=== PATIENT | male | born 1980 | race Caucasian/White ===

== ENCOUNTER 2024-01-03 20:21 | Inpatient (IN) | payer OTHER, SELFPAY ==
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
--- OUTSIDE RECORDS SUMMARY | 2024-01-03 20:24 | XMS_ITS | Continuity of Care Document ---
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 Role Phone Kimberly Lockhart MD, Zander Primary Care Phys ician [place] [facility] [place]20 - 11/28/20 [facility] [address] [place] [id number]- Encounter Diagnosis Dehydration(Final) - 11/28/20 Heat exhaustion(Final) - 11/28/20 Homelessness(Final) - 11/28/20 Discharge Disposition: A-D/C Home Attending Physician: Cj Burnett MD Admitting Physician: Cj Burnett MD Referring Physician: Not on Staff, Referring MD Allergies, Adverse Reactions, Alerts Substance Reaction Severity Status penicillin Active Haldol Active SEROquel 1 Active Avocado Active 1patient states he is allergic and had a reaction in the past Immunizations Given and Recorded Vaccine Date Status Refusal Reason pneumococcal 23-valent vaccine 1 03/20/18 Given influenza virus vaccine, inactivated 03/20/18 Give n Not Given Vaccine Date Status Refusal Reason pneumococcal 23-valent vaccine 02/21/18 Not Given Patient Refuses influenza virus vaccine, inactivated 02/21/18 Not Given Patient Refuses 1Early/Late Reason: Med Not Available Medications chlorproMAZINE 50 mg oral tablet = 50 mg, By Mouth, 2 times a day, PRN Anxiety, TAKE 1 TABLET BY MOUTH UP TO TWICE A DAY, -NEEDED FOR SEVERE ANXIETY. DO NOT OPERATE HEAVY MACHINERY IF YOU FEEL SEDATED., # 60 tablet, 0 Refills, Maintenance, 10/31/20 10:35:00 EDT, TabletSYLVIA. Start Date: 10/31/20 Stop Date: 11/30/20 Status: Ordered escitalopram 10 mg oral tablet 1 tablet = 10 mg, By Mouth, Daily, # 30 tablet, 1 Refills, Maintenance, 10/18/20 11:18:00 EDT, Tablet, [facility] #[id number], Partial fill upon patient request if the prescription is for a schedule II opioid drug., 198, melody, 10/18/20 10:14:00 EDT... Start Date: 10/18/20 Status: Ordered lithium 300 mg oral tablet 2 tablet = 600 mg, By Mouth, Daily at bedtime, # 60 tablet, 1 Refills, Maintenance, 10/18/20 11:23:00 EDT, [facility] #[id number], Partial fill upon patient request if the prescription is for a schedule II opioid drug., 198, melody, 10/18/20 10:14:00... Start Date: 10/18/20 Status: Ordered lithium 600 mg oral capsule = 600 mg, By Mouth, Daily, 0 Refills, Maintenance, 10/31/20 10:58:00 EDT, Capsule, Partial fill upon patient request if the prescription is for a schedule II opioid drug. Start Date: 10/31/20 Status: Ordered mirtazapine 15 mg oral tablet 0.5 tablet = 7.5 mg, By Mouth, Daily at bedtime, # 15 tablet, 1 Refills, Maintenance, 10/18/20 11:19:00 EDT, Tablet, [facility] #[id number], Partial fill upon patient request if the prescriptionis for a schedule II opioid drug., 198, melody, ... Start Date: 10/18/20 Status: Ordered multivitamin with minerals Vitamin D with Minerals oral tablet 1 tablet, By Mouth, Daily, # 30 tablet, 1 Refills, Maintenance, 10/31/20 10:35:00 EDT, Capsule, [facility] #[id number], Partial fill upon patient request if the prescription is for a schedule IIopioid drug., 1 tablet By Mouth Daily, 193, cm, ... Start Date: 10/31/20 Status: Ordered olanzapine 5 mg oral tablet 5 mg, 1, tablet, By Mouth, 2 times a day, # 60 tablet, Refills 1, Tot. Refills 1, Maintenance, 10/31/20 10:35:00 EDT, Route to Pharmacy Electronically, [facility] #[id number], Partial fill upon patient request if the prescription is for a schedul... Start Date: 10/31/20 Status: Ordered pantoprazole 40 mg oral delayed release tablet = 40 mg, By Mouth, Daily, # 30 tablet, 1 Refills, Maintenance, 10/18/20 11:20:00 EDT, EC Tablet, 198, cm, 10/18/20 10:14:00 EDT, Height, 66.68, kg, 10/17/20 19:53:00 EDT, Dry Weight Start Date: 10/18/20 Status: Ordered sucralfate 1 gm oral tablet 1 Gm, 1, tablet, By Mouth, 2 times a day, # 60 tablet, Refills 1, Tot. Refills 1, Maintenance, 10/18/20 11:21:00 EDT, Route to Pharmacy Electronically, [facility] #[id number], Partial fill upon patient request if the prescription is for a schedul... Start Date: 10/18/20 Status: Ordered Problem List Condition Effective Dates Status Health Status Inform ant Diabetes(Confirmed) Active Hypertension(Confirmed) Active Major depressive disorder(Confirmed) Active PTSD (post-traumatic stress disorder)(Confirmed) Active Tobacco use disorder(Confirmed) Active Vital Signs Most recent to oldest [Reference Range]: 1 2 Oxygen Saturation [94-100 %] 100 % (11/28/20 8:35 AM) 100 % (11/28/20 4:21 AM) Pulse Rate [55-90 bpm] 65 bpm (11/28/20 8:35 AM) 65 bpm (11/28/20 4:21 AM) Blood Pressure [90-138/55-84 mm Hg] 118/ 77mm Hg (11/28/20 8:35 AM) 116/68mm Hg (11/28/20 4:21 AM) Respiratory Rate [16-30 br/min] 16 br/mi n (11/28/20 8:35 AM) 18 br/min (11/28/20 4:21 AM) Temperature [96.8-100.4 DegF] 97.6 DegF (11/28/20 8:35 AM) 97.5 DegF (11/28/20 4:21 AM) Mode of Delivery (Oxygen) Room air (11/28/20 8:35 AM) Room air (11/28/20 4:21 AM) Blood pressure sites Arm, left (11/28/20 8:35 AM) Arm, right (11/28/20 4:21 AM) Temperature Route Oral (11/28/20 8:35 AM) Oral (11/28/20 4:21 AM) Social History Social History Type Response Smoking Status Current every day brittany simms entered on: 12/03/17 Sex
--- OUTSIDE RECORDS SUMMARY | 2024-01-03 20:24 | XMS_ITS | Continuity of Care Document ---
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 [place] Date(s): 10/23/19 - 10/26/[address] [address]- [facility] Discharge Disposition: Transfer to [facility] Facility Attending Physician: Anthony Hill MD Admitting Physician: Anthony Hill MD Referring Physician: Not on Staff, Referring [...] Refuses 1Early/Late Reason: Med Not Available Medications Carafate 1 gm oral tablet 1 Gm, 1, tablet, By Mouth, 2 times a day, # 60 tablet, Refills 0, Tot. Refills 0, Maintenance, 06/16/19 15:19:00 EST, Route to Pharmacy Electronically, [facility] #[id number], 199, cm, 06/16/19 9:58:00 EST, Height, 70.6, kg, 10/05/18 16:57:00 EDT... Start Date: 06/16/19 Status: Ordered escitalopram 10 mg oral tablet TK 1 T PO QD Start Date: 08/13/19 Status: Ordered gabapentin 400 mg oral capsule 400 mg, 1, capsule, By Mouth, 3 times a day, # 120 capsule, Refills 0, Maintenance, 06/10/19 1:46:00 EST Start Date: 06/10/19 Status: Ordered hydrOXYzine pamoate 50 mg oral capsule = 50 mg, By Mouth, 2 times a day, PRN Anxiety, # 30 capsule, 0 Refills, Acute 06/16/20 9:00:00 EST,06/16/19 15:18:00 EST, Capsule, [facility] #[id number], 199, cm, 06/16/19 9:58:00 EST, Height,70.6, kg, 10/05/18 16:57:00 EDT, Dry Weight Start Date: 06/16/19 Stop Date: 06/16/20 Status: Ordered lithium 300 mg oral tablet 1 tablet = 300 mg, By Mouth, 2 times a day, # 60 tablet, 0 Refills, Maintenance, 06/16/19 15:18:00 EST, Tablet, [facility] #[id number], 199, cm, 06/16/19 9:58:00 EST, Height, 70.6, kg, 10/05/18 16:57:00 EDT, Dry Weight Start Date: 06/16/19 Status: Ordered nicotine 2 mg oral transmucosal gum = 2 mg, Chew, Every hour, PRN Other, Nicotine Withdrawal Symptoms (NOT to exceed 24 pieces per day), # 160 each, 0 Refills, Acute 06/16/20 9:00:00 EST, 06/16/19 15:20:00 EST, Gum, [facility] #[id number], 199, cm, 06/16/19 9:58:00 EST, Height, 70.... Start Date: 06/16/19 Stop Date: 06/16/20 Status: Ordered Problem List Condition Effective Dates Status Health Status Inform ant Hypertension(Confirmed) Active Major depressive disorder(Confirmed) Active PTSD (post-traumatic stress disorder)(Confirmed) Active Tobacco use disorder(Confirmed) Active Vital Signs Most recent to oldest [Reference Range]: 1 2 3 Oxygen Saturation [94-100 %] 98 % (10/26/19 2:31 PM) 99 % (10/26/19 6:56 AM) 99 % (10/25/19 8:58 PM) Pulse Rate [55-90 bpm] 85 bpm (10/26/19 2:31 PM) 50 bpm *L* (10/26/19 6:56 AM) 55 bpm (10/25/19 8:58 PM) Blood Pressure [90-138/55-84 mm Hg] 122/71mm Hg (10/26/19 2:31 PM) 98/53mm Hg (10/26/19 6:56 AM) 111/73mm Hg (10/25/19 8:58 PM) Respiratory Rate [16-30 br/min] 18 br/min (10/26/19 2:48 PM) 18 br/min (10/26/19 2:31 PM) 18 br/min (10/26/19 8:20 AM) Temperature [96.8-100.4 DegF] 97.9 DegF (10/26/19 2:31 PM) 98.1 DegF (10/26/19 6:56 AM) 97.5 DegF (10/25/19 8:58 PM) Mode of Delivery (Oxygen) Room air (10/26/19 2:31 PM) Room air (10/26/19 6:56 AM) Room air (10/25/19 8:58 PM) Blood pressure sites Arm, right (10/26/19 2:31 PM) Arm, right (10/26/19 6:56 AM) Arm, right (10/25/19 8:58 PM) Temperature Route Oral (10/26/19 2:31 PM) Axillary (10/26/19 6:56 AM) Oral (10/25/19 8:58 PM) Social History Social History Type Response Smoking Status Current every day brittany simms entered on: 12/03/17 Sex
--- OUTSIDE RECORDS SUMMARY | 2024-01-03 20:24 | XMS_ITS | Continuity of Care Document ---
Author Organization [facility] ter Address [address] [place] [phone]- Care Team Providers Care Enrollment Representative Name Role Phone Kimberly Lockhart MD, Zander Primary Care Phys ician [place] [facility] [place] 10/12/[address] [address]- Encounter Diagnosis Depression(Final) - 10/11/20 Discharge Disposition: Transfer to [facility] Facility Attending Physician: Jose Farah MD Admitting Physician: Jose Farah MD Referring Physician: Not on Staff, Referring [...] Refuses 1Early/Late Reason: Med Not Available Medications Lexapro 20 mg oral tablet 1 tablet = 20 mg, By Mouth, Daily, # 14 tablet, 2 Refills, Maintenance, 02/11/20 11:03:00 EDT, Tablet, [facility] #[id number], 195, cm, 02/11/20 8:06:00 EDT, Height, 74.84, kg, 02/04/20 16:58:00EDT, Dry Weight Start Date: 02/11/20 Stop Date: 03/24/20 Status: Ordered lithium 600 mg oral capsule = 600 mg, By Mouth, 2 times a day, # 28 capsule, 2 Refills, Maintenance, 02/11/20 11:01:00 EDT, Capsule, [facility] #[id number], 195, cm, 02/11/20 8:06:00 EDT, Height, 74.84, kg, 02/04/20 16:58:00 EDT, Dry Weight Start Date: 02/11/20 Stop Date: 03/24/20 Status: Ordered mirtazapine 15 mg oral tablet 0.5 tablet = 7.5 mg, By Mouth, Daily at bedtime, # 15 tablet, 1 Refills, Maintenance, 02/11/20 11:04:00 EDT, Tablet, [facility] #[id number], 195, cm, 02/11/20 8:06:00 EDT, Height, 74.84, kg, 02/04/20 16:58:00 EDT, Dry Weight Start Date: 02/11/20 Stop Date: 04/11/20 Status: Ordered pantoprazole 40 mg oral delayed release tablet = 40 mg, By Mouth, Daily, # 30 tablet, 0 Refills, Maintenance, 02/11/20 11:02:00 EDT, EC Tablet, 195, cm, 02/11/20 8:06:00 EDT, Height, 74.84, kg, 02/04/20 16:58:00 EDT, Dry Weight Start Date: 02/11/20 Stop Date: 03/12/20 Status: Ordered PEG-3350 with Electrolytes (Eqv-NuLYTELY) oral powder for reconstitution See Instructions, as directed, # 1 each, 0 Refills, Maintenance, 08/29/20 13:16:00 EDT, [facility] #[id number], Ok to sub for any gallon prep, as directed, 198, cm, 04/05/20 8:30:00 EST, Height,76, kg, 04/05/20 8:30:00 EST, Dry Weight Start Date: 08/29/20 Status: Ordered sucralfate 1 gm oral tablet 1 Gm, 1, tablet, By Mouth, 2 times a day, on an empty stomach, # 180 tablet, Refills 0, Tot. Refills 0, Maintenance, 06/26/20 16:12:00 EST, Route to Pharmacy Electronically, [facility] #[id number], Partial fill upon patient request if the prescri... Start Date: 06/26/20 Status: Ordered Suprep Bowel Prep Kit oral liquid See Instructions, drink 1 bottle around 6pm day before procedure, drink second bottle morning of procedure but complete at least 4 hours prior to procedure., # 1 each, 0 Refills, Maintenance, 08/21/20 9:17:00 EDT, [facility] #[id number], Partial... Start Date: 08/21/20 Status: Ordered ZyPREXA 10 mg oral tablet See Instructions, 0.5 tablet By Mouth Daily two times a day at 9AM and 9PM. Take 0.5 tablet three times a day as needed for agitation., # 30 tablet, Refills 1, Tot. Refills 1, Maintenance, 02/11/20 11:05:00 EDT, Instructions Replace Required Details,... Start Date: 02/11/20 Status: Ordered Problem List Condition Effective Dates Status Health Status Inform ant Diabetes(Confirmed) Active Hypertension(Confirmed) Active Major depressive disorder(Confirmed) Active PTSD (post-traumatic stress disorder)(Confirmed) Active Tobacco use disorder(Confirmed) Active Results Radiology Reports * Exam Date Time Procedure Performing Provider Status 10/11/20 4:37 PM XR Hip w/Pelvis 2-3 View Left Rony Mcfarlane (Verified) Notes: (XR Hip w/Pelvis 2-3 View Left) Reason For Exam: With Pain;Trauma RESULT: XR Hip w/Pelvis 2-3 View Left XR Hip w/Pelvis 2-3 View Left INDICATION/CLINICAL QUESTION: Postmenopausal pain. COMPARISON: None.. TECHNIQUE: AP pelvis. AP and frog lateral left hip. FINDINGS: There is no fracture or focal lesion of the bony pelvis. The sacroiliac joints show no gross abnormality. There is no fracture in the visualized parts of the femurs. Minimal osteoarthritic change both hips.. No concerning soft tissue abnormality. IMPRESSION: 1. No bony injury.. 2. Minimal osteoarthritis both hips. WSN: [id number] Ordering Physician: Sophie Berkowitz Dictated By: Rudy Concepcion MD Dictated Date/Time: 10/11/20 4:43 pm Reviewed By: Rudy Concepcion MD Signed By: Rudy Concepcion MD Signed Date/Time: 10/11/20 4:43 pm Transcribed By: KENYETTA Transcribed Date/Time: 10/11/20 4:42 pm * Exam Date Time Procedure Performing Provider Status 10/11/20 4:37 PM Chest 2 Views Frontal and Lat Alise Mcfarlane; Yury (Verified) Notes: (Chest 2 Views Frontal and Lat) Reason For Exam: Pain;Other: RESULT: Chest 2 Views Frontal and Lat Chest 2 Views Frontal and Lat Hx of Present Illness: pt being section 12 for increase SI and HI with plan from a fpc; Reason: Other:; Pain; Clinical Question(s): Other:; Fracture, pneumothorax, pulmonary contusion COMPARISON: 04/05/2020 FINDINGS: LINES AND TUBES: None. LUNGS AND PLEURA: There are emphysematous changes in both upper lobes greater in the right than the left. There is no pneumonia. There is no infiltrate or pneumothorax. No pneumothorax. HEART, MEDIASTINUM AND FREIDA: Heart is normal in size. Normal upper mediastinal and hilar contour. BONES AND SOFT TISSUES: Patient is scoliotic. IMPRESSION: Emphysematous changes. No acute process. WSN: [id number] Ordering Physician: Sophie Berkowitz Dictated By: Binu Weaver MD Dictated Date/Time: 10/11/20 4:40 pm Reviewed By: Binu Weaver MD Signed By: Binu Weaver MD Signed Date/Time: 10/11/20 4:40 pm Transcribed By: KENYETTA Transcribed Date/Time: 10/11/20 4:38 pm Vital Signs Most recent to oldest [Reference Range]: 1 2 3 Oxygen Saturation [94-100 %] 100 % (10/12/20 6:46 AM) 96 % (10/11/20 11:14 PM) 100 % (10/11/20 5:22 PM) Pulse Rate [55-90 bpm] 73 bpm (10/12/20 6:46 AM) 61 bpm (10/11/20 11:14 PM) 64 bpm (10/11/20 5:22 PM) Blood Pressure [90-138/55-84 mm Hg] 149/99mm Hg *H* (10/12/20 6:46 AM) 96/58mm Hg (10/11/20 11:14 PM) 114/62mm Hg (10/11/20 5:22 PM) Respiratory Rate [16-30 br/min] 18 br/min (10/11/20 11:14 PM) 16 br/min (10/11/20 5:22 PM) 18 br/min (10/11/20 2:03 PM) Temperature [96.8-100.4 DegF] 97.5 DegF (10/12/20 6:46 AM) 97.4 DegF (10/11/20 11:14 PM) 97.9 DegF (10/11/20 5:22 PM) Mode of Delivery (Oxygen) Room air (10/12/20 6:46 AM) Room air (10/11/20 11:14 PM) Room air (10/11/20 5:22 PM) Blood pressure sites Arm, right (10/12/20 6:46 AM) Arm, right (10/11/20 11:14 PM) Arm, left (10/11/20 5:22 PM) Temperature Route Oral (10/12/20 6:46 AM) Oral (10/11/20 11:14 PM) Oral (10/11/20 5:22 PM) Social History Social History Type Response Smoking Status Current every day brittany simms entered on: 12/03/17 Sex
--- OUTSIDE RECORDS SUMMARY | 2024-01-03 20:24 | XMS_ITS | Continuity of Care Document ---
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 Test Carrier Name Role Phone Kimberly Lockhart MD, Zander Primary Care Phys ician Encounter [facility] [place] Date(s): 08/29/20 - 10/09/[address] [address] Attending Physician: Danny Morales MD Admitting Physician: Danny Morales MD Referring Physician: Danny Morales MD Allergies, Adverse Reactions, Alerts Substance Reaction [...] 2 Refills, Maintenance, 02/11/20 11:03:00 EDT, Tablet, [facility] #[id number], 195, cm, 02/11/20 8:06:00 EDT, Height, 74.84, kg, 02/04/20 16:58:00EDT, Dry Weight Start Date: 02/11/20 Stop Date: 03/24/20 Status: Ordered lithium 600 mg oral capsule = 600 mg, By Mouth, 2 times a day, # 28 capsule, 2 Refills, Maintenance, 02/11/20 11:01:00 EDT, Capsule, [facility] #[id number], 195, cm, 02/11/20 8:06:00 EDT, Height, 74.84, kg, 02/04/20 16:58:00 EDT, Dry Weight Start Date: 02/11/20 Stop Date: 03/24/20 Status: Ordered mirtazapine 15 mg oral tablet 0.5 tablet = 7.5 mg, By Mouth, Daily at bedtime, # 15 tablet, 1 Refills, Maintenance, 02/11/20 11:04:00 EDT, Tablet, [facility] #[id number], 195, cm, 02/11/20 8:06:00 EDT, Height, 74.84, [...] each, 0 Refills, Maintenance, 08/29/20 13:16:00 EDT, [facility] #[id number], Ok to sub for any gallon prep, as directed, 198, cm, 04/05/20 8:30:00 EST, Height,76, kg, 04/05/20 8:30:00 EST, Dry Weight Start Date: 08/29/20 Status: Ordered sucralfate 1 gm oral tablet 1 Gm, 1, tablet, By Mouth, 2 times a day, on an empty stomach, # 180 tablet, Refills 0, Tot. Refills 0, Maintenance, 06/26/20 16:12:00 EST, Route to Pharmacy Electronically, [facility] #[id number], Partial fill upon patient request if the prescri... Start Date: 06/26/20 Status: Ordered Suprep Bowel Prep Kit oral liquid See Instructions, drink 1 bottle around 6pm day before procedure, drink second bottle morning of procedure but complete at least 4 hours prior to procedure., # 1 each, 0 Refills, Maintenance, 08/21/20 9:17:00 EDT, [facility] #[id number], Partial... Start Date: 08/21/20 Status: Ordered ZyPREXA [...] stress disorder)(Confirmed) Active Tobacco use disorder(Confirmed) Active Social History Social History Type Response Smoking Status Current every day brittany simms entered on: 12/03/17 Sex
--- OUTSIDE RECORDS SUMMARY | 2024-01-03 20:24 | XMS_ITS | Continuity of Care Document ---
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 Name Role Phone Kimberly Lockhart MD, Zander Primary Care Phys ician [place] [facility] [place] Date(s): 05/11/21 - 06/10/21 [facility] Attending Physician: Jacquelyn Ahmadi Admitting Physician: Jacquelyn Ahmadi Referring Physician: Jacquelyn Ahmadi Allergies, Adverse Reactions, Alerts Substance Reaction Severity Status penicillin Active Haldol Active Avocado Active SEROquel 1 Active 1patient states he is allergic and [...] Available Medications chlorproMAZINE 50 mg oral tablet 1 tablet = 50 mg, By Mouth, Daily at bedtime, 0 Refills, Maintenance, 02/06/21 14:37:00 EDT, Partial fill upon patient request if the prescription is for a schedule II opioid drug. Start Date: 02/06/21 Status: Ordered Depakote ER 500 mg oral tablet, extended release 2 tablet = 1,000 mg, By Mouth, Daily at bedtime, 0 Refills, Maintenance, 02/06/21 14:42:00 EDT, Partial fill upon patient request if the prescription is for a schedule II opioid drug. Start Date: 02/06/21 Status: Ordered Depakote ER 500 mg oral tablet, extended release 1 tablet = 500 mg, By Mouth, Daily, 0 Refills, Maintenance, 02/06/21 14:44:00 EDT, Partial fill upon patient request if the prescription is for a schedule II opioid drug. Start Date: 02/06/21 Status: Ordered lithium 300 mg oral capsule 1 capsule = 300 mg, By Mouth, Daily, 0 Refills, Maintenance, 02/06/21 14:38:00 EDT, Partial fill upon patient request if the prescription is for a schedule II opioid drug. Start Date: 02/06/21 Status: Ordered lithium 300 mg oral tablet 2 tablet = 600 mg, By Mouth, Daily at bedtime, # 60 tablet, 1 Refills, Maintenance, 10/18/20 11:23:00 EDT, [facility] #[id number], Partial fill upon patient request if the prescription is for a schedule II opioid drug., 198, cm, 10/18/20 10:14:00... Start Date: 10/18/20 Status: Ordered melatonin 3 mg oral tablet 3 tablet = 9 mg, By Mouth, Daily at bedtime, 0 Refills, Maintenance, 02/06/21 14:40:00 EDT, Partialfill upon patient request if the prescription is for a schedule II opioid drug. Start Date: 02/06/21 Status: Ordered mirtazapine 15 mg oral tablet 0.5 tablet = 7.5 mg, By Mouth, Daily at bedtime, # 15 tablet, 1 Refills, Maintenance, 10/18/20 11:19:00 EDT, Tablet, [facility] #[id number], Partial fill upon patient request if the prescriptionis for a schedule II opioid drug., 198, cm, ... Start Date: 10/18/20 Status: Ordered multivitamin with minerals Vitamin D with Minerals oral tablet 1 tablet, By Mouth, Daily, # 30 tablet, 1 Refills, Maintenance, 10/31/20 10:35:00 EDT, Capsule, [facility] #[id number], Partial fill upon patient request if the prescription is for a schedule IIopioid drug., 1 tablet By Mouth Daily, 193, cm, ... Start Date: 10/31/20 Status: Ordered nicotine 14 mg/24 hr transdermal film, extended release 1 patch, Topically, Daily, # 30 patch, 1 Refills, Maintenance, 02/09/21 10:23:00 EDT, Patch, [facility] #[id number], Partial fill upon patient request if the prescription is for a schedule II opioid drug., 1 patch Topically Daily, 196, cm, ... Start Date: 02/09/21 Status: Ordered nicotine 2 mg oral transmucosal gum = 2 mg, Chew, Every 15 minutes, PRN Other, Cigarette craving. Not to exceed 30 doses in 24 hours, #160 each, 1 Refills, Maintenance, 02/09/21 10:22:00 EDT, Gum, [facility] #[id number], Partial fill upon patient request if the prescription is fo... Start Date: 02/09/21 Status: Ordered olanzapine 2.5 mg oral tablet 2.5 mg, 1, tablet, By Mouth, Daily, PRN, Refills 0, Maintenance, Anxiety, 02/06/21 14:34:00 EDT, Partial fill upon patient request if the prescription is for a schedule II opioid drug. Start Date: 02/06/21 Status: Ordered ondansetron 4 mg oral tablet, disintegrating 1 tablet = 4 mg, By Mouth, Every 8 hours, PRN Nausea & Vomiting, # 10 tablet, 0 Refills, Maintenance, 04/23/21 13:22:00 EST, Tablet, [facility] #[id number], Partial fill upon patient requestif the prescription is for a schedule II opioid drug.,... Start Date: 04/23/21 Status: Ordered prazosin 5 mg oral capsule 5 mg, 1, capsule, By Mouth, Daily at bedtime, Refills 0, Maintenance, 02/06/21 14:43:00 EDT, Partial fill upon patient request if the prescription is for a schedule II opioid drug. Start Date: 02/06/21 Status: Ordered sertraline 50 mg oral tablet 1 tablet = 50 mg, By Mouth, Daily, 0 Refills, Maintenance, 02/06/21 14:45:00 EDT, Partial fill uponpatient request if the prescription is for a schedule II opioid drug. Start Date: 02/06/21 Status: Ordered Problem List Condition Effective Dates Status Health Status Inform ant Diabetes(Confirmed) Active Hypertension(Confirmed) Active Major depressive disorder(Confirmed) Active PTSD (post-traumatic stress disorder)(Confirmed) Active Tobacco use disorder(Confirmed) Active Social History Social History Type Response Smoking Status Current every day brittany simms entered on: 12/03/17 Sex
--- OUTSIDE RECORDS SUMMARY | 2024-01-03 20:24 | XMS_ITS | Continuity of Care Document ---
Author Organization [facility] Address [address] [place] [address]- Care Team Providers Care Scaffold Erector Name Role Phone Kimberly Lockhart MD, Zander Primary Care Phys ician Encounter [facility] Date(s): 08/29/20 - 09/28/20 [facility] [address] [place] [id number] Allergies, Adverse Reactions, Alerts Substance Reaction Severity [...] 2 Refills, Maintenance, 02/11/20 11:03:00 EDT, Tablet, [facility] #[id number], 195, cm, 02/11/20 8:06:00 EDT, Height, 74.84, kg, 02/04/20 16:58:00EDT, Dry Weight Start Date: 02/11/20 Stop Date: 03/24/20 Status: Ordered lithium 600 mg oral capsule = 600 mg, By Mouth, 2 times a day, # 28 capsule, 2 Refills, Maintenance, 02/11/20 11:01:00 EDT, Capsule, [facility] #[id number], 195, cm, 02/11/20 8:06:00 EDT, Height, 74.84, kg, 02/04/20 16:58:00 EDT, Dry Weight Start Date: 02/11/20 Stop Date: 03/24/20 Status: Ordered mirtazapine 15 mg oral tablet 0.5 tablet = 7.5 mg, By Mouth, Daily at bedtime, # 15 tablet, 1 Refills, Maintenance, 02/11/20 11:04:00 EDT, Tablet, [facility] #[id number], 195, cm, 02/11/20 8:06:00 EDT, Height, 74.84, [...] each, 0 Refills, Maintenance, 08/29/20 13:16:00 EDT, [facility] #[id number], Ok to sub for any gallon prep, as directed, 198, cm, 04/05/20 8:30:00 EST, Height,76, kg, 04/05/20 8:30:00 EST, Dry Weight Start Date: 08/29/20 Status: Ordered sucralfate 1 gm oral tablet 1 Gm, 1, tablet, By Mouth, 2 times a day, on an empty stomach, # 180 tablet, Refills 0, Tot. Refills 0, Maintenance, 06/26/20 16:12:00 EST, Route to Pharmacy Electronically, [facility] #[id number], Partial fill upon patient request if the prescri... Start Date: 06/26/20 Status: Ordered Suprep Bowel Prep Kit oral liquid See Instructions, drink 1 bottle around 6pm day before procedure, drink second bottle morning of procedure but complete at least 4 hours prior to procedure., # 1 each, 0 Refills, Maintenance, 08/21/20 9:17:00 EDT, [facility] #[id number], Partial... Start Date: 08/21/20 Status: Ordered ZyPREXA [...]
--- OUTSIDE RECORDS SUMMARY | 2024-01-03 20:24 | XMS_ITS | Continuity of Care Document ---
Author Organization [facility] ter Address [address] [place] [id number]- Care Team Providers Care Flume Maker Name Role Phone Kimberly Lockhart MD, Zander [facility] [place] Date(s): 09/18/19 - 09/18/[address] [address]- [facility] Encounter Diagnosis Weakness(Final) - 09/18/19 Discharge Disposition: A-D/C Home Attending Physician: Star Null DO Admitting Physician: Star Null DO Referring Physician: Not on Staff, Referring MD [...] 06/16/19 15:19:00 EST, Route to Pharmacy Electronically, [facility] #[id number], 199, cm, 06/16/19 9:58:00 EST, Height, 70.6, [...] Acute 06/16/20 9:00:00 EST,06/16/19 15:18:00 EST, Capsule, [facility] #[id number], 199, cm, 06/16/19 9:58:00 EST, Height,70.6, kg, 10/05/18 16:57:00 EDT, Dry Weight Start Date: 06/16/19 Stop Date: 06/16/20 Status: Ordered lithium 300 mg oral tablet 1 tablet = 300 mg, By Mouth, 2 times a day, # 60 tablet, 0 Refills, Maintenance, 06/16/19 15:18:00 EST, Tablet, [facility] #[id number], 199, cm, 06/16/19 9:58:00 EST, Height, 70.6, kg, 10/05/18 16:57:00 EDT, Dry Weight Start Date: 06/16/19 Status: Ordered nicotine 2 mg oral transmucosal gum = 2 mg, Chew, Every hour, PRN Other, Nicotine Withdrawal Symptoms (NOT to exceed 24 pieces per day), # 160 each, 0 Refills, Acute 06/16/20 9:00:00 EST, 06/16/19 15:20:00 EST, Gum, [facility] #[id number], 199, cm, 06/16/19 9:58:00 EST, Height, 70.... Start Date: 06/16/19 Stop Date: 06/16/20 Status: Ordered Problem List Condition Effective Dates Status Health Status Inform ant Hypertension(Confirmed) Active Major depressive disorder(Confirmed) Active PTSD (post-traumatic stress disorder)(Confirmed) Active Tobacco use disorder(Confirmed) Active Results Radiology Reports * Exam Date Time Procedure Performing Provider Status 09/18/19 9:38 AM Chest Portable Sam Edgar (Verified) Notes: (Chest Portable) Reason For Exam: Cough RESULT: Chest Portable PROCEDURE: Chest Portable CLINICAL INDICATION: 39 years old Male with Cough; Clinical Question(s): Pneumonia; Hx of Present Illness: Pt reports not feeling well over the past 3 days developed a dry cough, feeling weak and reports that he vomited a 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 Pt reports feeling nausea, pt reporting left side chest discomfort mid sternal chest pain. Denies fever. COMPARISON: March 16, 2018, August 12, 2019. FINDINGS: Portable AP erect view of the chest performed at 9:20 AM. Two views required for completeevaluation. Lines and tubes: Several EKG leads project over the chest. Lungs and pleura: Severe hyperinflation of the lungs again noted. 1.2 cm area devoid of lung markings in the upper RIGHT lung consistent with a large bladder with mild adjacent compressive atelectasis in the RIGHT perihilar region again noted. Mild unchanged biapical scarring. Lungs otherwise clearas visualized. No pleural effusions.No evidence of pneumothorax. Heart, mediastinum and diana: The cardiomediastinal silhouette and pulmonary vasculature are unremarkable. No cardiomegaly or pulmonary venous hypertension. Bones and soft tissues: Mild thoracic dextroscoliosis. IMPRESSION: 1. No evidence of acute cardiopulmonary disease. 2. Significant bullous emphysema again noted. Thank you for allowing me to participate in the care of this patient. WSN: [id number] Ordering Physician: Hannah Severino Dictated By: Chung Beal MD Dictated Date/Time: 09/18/19 9:48 am Reviewed By: Chung Beal MD Signed By: Chung Beal MD Signed Date/Time: 09/18/19 9:48 am Transcribed By: KENYETTA Transcribed Date/Time: 09/18/19 9:46 am Vital Signs Most recent to oldest [Reference Range]: 1 2 3 Oxygen Saturation [94-100 %] 100 % (09/18/19 11:30 AM) 99 % (09/18/19 9:54 AM) 100 % (09/18/19 8:10 AM) Pulse Rate [55-90 bpm] 52 bpm *L* (09/18/19 11:30 AM) 46 bpm *L* (09/18/19 9:54 AM) 42 bpm *L* (09/18/19 8:10 AM) Blood Pressure [90-138/55-84 mm Hg] 124/74mm Hg (09/18/19 11:30 AM) 100/62mm Hg (09/18/19 9:54 AM) 128/71mm Hg (09/18/19 8:10 AM) Respiratory Rate [16-30 br/min] 18 br/min (09/18/19 11:30 AM) 18 br/min (09/18/19 9:54 AM) 16 br/min (09/18/19 8:10 AM) Temperature [96.8-100.4 DegF] 98.5 DegF (09/18/19 11:30 AM) 97.5 DegF (09/18/19 8:10 AM) Mode of Delivery (Oxygen) Room air (09/18/19 11:30 AM) Room air (09/18/19 9:54 AM) Room air (09/18/19 8:10 AM) Blood pressure sites Arm, left (09/18/19 11:30 AM) Arm, left (09/18/19 9:54 AM) Arm, left (09/18/19 8:10 AM) Temperature Route Oral (09/18/19 11:30 AM) Oral (09/18/19 8:10 AM) Social History Social History Type Response Smoking Status Current every day brittany simms entered on: 12/03/17 Sex
--- OUTSIDE RECORDS SUMMARY | 2024-01-03 20:24 | XMS_ITS | Continuity of Care Document ---
Author Organization [facility] ter Address [address] [place] [address]- Care Team Providers Care Furnace Caretaker Name Role Phone Kimberly Lockhart MD, Zander [facility] [place] 11/07/19 - 11/09/[address] [address]- [facility] Discharge Disposition: A-D/C Home Attending Physician: Anthony Hill MD Admitting Physician: [...] 06/16/19 15:19:00 EST, Route to Pharmacy Electronically, [facility] #[id number], 199, cm, 06/16/19 9:58:00 EST, Height, 70.6, kg, 10/05/18 16:57:00 EDT... Start Date: 06/16/19 Status: Ordered escitalopram 20 mg oral tablet 1 tablet = 20 mg, By Mouth, Daily, # 30 tablet, 0 Refills, Maintenance, 11/09/19 10:49:00 EDT, Tablet, [facility]/pharmacy #[id number], 196, cm, 11/09/19 6:56:00 EDT, Height, 67.2, kg, 11/09/19 6:56:00 EDT, Dry Weight Start Date: 11/09/19 Status: Ordered gabapentin 400 mg oral capsule 400 mg, 1, capsule, By Mouth, 3 times a day, # 120 capsule, Refills 0, Maintenance, 06/10/19 1:46:00 EST Start Date: 06/10/19 Status: Ordered hydrOXYzine pamoate 50 mg oral capsule = 50 mg, By Mouth, 2 times a day, PRN Anxiety, # 30 capsule, 0 Refills, Acute 06/16/20 9:00:00 EST,06/16/19 15:18:00 EST, Capsule, [facility] #[id number], 199, cm, 06/16/19 9:58:00 EST, Height,70.6, kg, 10/05/18 16:57:00 EDT, Dry Weight Start Date: 06/16/19 Stop Date: 06/16/20 Status: Ordered lithium 300 mg oral tablet, extended release 2 tablet = 600 mg, By Mouth, 2 times a day, # 120 tablet, 0 Refills, Maintenance, 11/09/19 10:50:00EDT, ER Tablet, [facility]/pharmacy #[id number], 196, cm, 11/09/19 6:56:00 EDT, Height, 67.2, kg, 11/09/19 6:56:00 EDT, Dry Weight Start Date: 11/09/19 Status: Ordered nicotine 2 mg oral transmucosal gum = 2 mg, Chew, Every hour, PRN Other, Nicotine Withdrawal Symptoms (NOT to exceed 24 pieces per day), # 160 each, 0 Refills, Acute 06/16/20 9:00:00 EST, 06/16/19 15:20:00 EST, Gum, [facility] #[id number], 199, cm, 06/16/19 9:58:00 EST, Height, 70.... Start Date: 06/16/19 Stop Date: 06/16/20 Status: Ordered Problem List Condition Effective Dates Status Health Status Inform ant Hypertension(Confirmed) Active Major depressive disorder(Confirmed) Active PTSD (post-traumatic stress disorder)(Confirmed) Active Tobacco use disorder(Confirmed) Active Vital Signs Most recent to oldest [Reference Range]: 1 2 3 Height 196 cm (11/09/19 6:56 AM) 196 cm (11/08/19 9:18 PM) 196 cm (11/08/19 9:10 AM) Weight 67.2 kg (11/09/19 6:56 AM) 67.2 kg (11/08/19 9:18 PM) 67.2 kg (11/08/19 9:10 AM) Oxygen Saturation [94-100 %] 98 % (11/09/19 12:18 PM) 100 % (11/09/19 6:56 AM) 98 % (11/08/19 9:18 PM) Pulse Rate [55-90 bpm] 78 bpm (11/09/19 12:18 PM) 95 bpm *H* (11/09/19 6:56 AM) 68 bpm (11/08/19 9:18 PM) Body Mass Index [18.5-24.99] 17.49 *L* (11/09/19 6:56 AM) 17.49 *L* (11/08/19 9:18 PM) 17.49 *L* (11/08/19 9:10 AM) Blood Pressure [90-138/55-84 mm Hg] 97/61mm Hg (11/09/19 12:18 PM) 97/60mm Hg (11/09/19 6:56 AM) 101/65mm Hg (11/08/19 9:18 PM) Respiratory Rate [16-30 br/min] 18 br/min (11/09/19 12:18 PM) 20 br/min (11/09/19 10:01 AM) 18 br/min (11/09/19 9:01 AM) Temperature [96.8-100.4 DegF] 98 DegF (11/09/19 12:18 PM) 97.4 DegF (11/08/19 9:18 PM) 98.2 DegF (11/08/19 9:10 AM) Mode of Delivery (Oxygen) Room air (11/09/19 12:18 PM) Room air (11/09/19 6:56 AM) Room air (11/08/19 9:18 PM) Blood pressure sites Arm, left (11/09/19 12:18 PM) Arm, right (11/09/19 6:56 AM) Arm, right (11/08/19 9:18 PM) Temperature Route Oral (11/09/19 12:18 PM) Oral (11/08/19 9:18 PM) Oral (11/08/19 9:10 AM) Dry Weight 67.2 kg (11/09/19 6:56 AM) 67.2 kg (11/08/19 9:18 PM) 67.2 kg (11/08/19 9:10 AM) Weight Obtained Via Standing scale (11/07/19 5:23 PM) Dry Weight Obtained Via Standing scale (11/07/19 5:23 PM) Social History Social History Type Response Smoking Status Current every day brittany simms entered on: 12/03/17 Sex
--- OUTSIDE RECORDS SUMMARY | 2024-01-03 20:24 | XMS_ITS | Continuity of Care Document ---
Author Organization [facility] Address [address] [place] [address]- Care Team Providers Care Heel Caser Name Role Phone Kimberly Lockhart MD, Zander [facility] Date(s): 11/16/20 - 12/22/20 [facility] [address] [place], [place] [address] Attending Physician: Sol Mccartney MD Admitting Physician: Sol Mccartney MD Referring Physician: Dillan Childs MD Allergies, Adverse Reactions, Alerts Substance Reaction [...] tablet, 0 Refills, Maintenance, 10/31/20 10:35:00 EDT, [facility]. Start Date: 10/31/20 Stop Date: 11/30/20 Status: Ordered escitalopram 10 mg oral tablet 1 tablet = 10 mg, By Mouth, Daily, # 30 tablet, 1 Refills, Maintenance, 10/18/20 11:18:00 EDT, [facility][id number], Partial fill upon patient request if the prescription is for a schedule II opioid drug., 198, cm, 10/18/20 10:14:00 EDT... Start Date: 10/18/20 Status: Ordered lithium 300 mg oral tablet 2 tablet = 600 mg, By Mouth, Daily at bedtime, # 60 tablet, 1 Refills, Maintenance, 10/18/20 11:23:00 EDT, [facility] #[id number], Partial fill upon patient request if the [...] 1 Refills, Maintenance, 10/18/20 11:19:00 EDT, Tablet, [facility] #[id number], Partial fill upon patient request if the prescriptionis for a schedule II opioid drug., 198, melody, ... Start Date: 10/18/20 Status: Ordered multivitamin with minerals Vitamin D with Minerals oral tablet 1 tablet, By Mouth, Daily, # 30 tablet, 1 Refills, Maintenance, 10/31/20 10:35:00 EDT, Capsule, [facility] #[id number], Partial fill upon patient request if the prescription is for a schedule IIopioid drug., 1 tablet By Mouth Daily, 193, cm, ... Start Date: 10/31/20 Status: Ordered olanzapine 5 mg oral tablet 5 mg, 1, tablet, By Mouth, 2 times a day, # 60 tablet, Refills 1, Tot. Refills 1, Maintenance, 10/31/20 10:35:00 EDT, Route to Pharmacy Electronically, [facility] #[id number], Partial fill upon patient request if the [...] 10/18/20 11:21:00 EDT, Route to Pharmacy Electronically, [facility] #[id number], Partial fill upon patient request if the [...]
--- OUTSIDE RECORDS SUMMARY | 2024-01-03 20:24 | XMS_ITS | Continuity of Care Document ---
Author Organization [facility] Address [address] [place] [address]- Care Team Providers Care American History Teacher Name Role Phone Kimberly Lockhart MD, Zander Primary Care Phys ician En[place] [facility] [place] Date(s): 10/12/19 - 02/09/20 [facility] [address] [place] [address]- [facility] Attending Physician: Sam Culp MD Admitting Physician: Sam Culp MD Referring Physician: Zander Xavier MD Allergies, Adverse Reactions, Alerts Substance Reaction [...] Refuses 1Early/Late Reason: Med Not Available Medications acetaminophen 325 mg oral tablet 650 mg, 2, tablet, By Mouth, 3 times a day, PRN, Take NEEDED for mild- moderate pain not to exceed 4000 mg/day, # 60 tablet, Refills 1, Tot. Refills 1, Acute 03/08/20 10:14:00 EDT, Pain , Mild, 01/06/20 10:13:00 EDT, Route to Pharmacy [facility]... Start Date: 01/06/20 Stop Date: 03/08/20 Status: Ordered diclofenac 1% topical gel = 2 Gm, Topically, 3 times a day, # 180 Gm, 1 Refills, Maintenance, 01/06/20 10:10:00 EDT, Gel, [facility] #[id number], 198.12, cm, 01/06/20 8:06:00 EDT, Height, 58, kg, 12/30/19 3:29:00 EDT, Dry Weight Start Date: 01/06/20 Status: Ordered escitalopram 20 mg oral tablet 1 tablet = 20 mg, By Mouth, Daily, # 30 tablet, 1 Refills, Maintenance, 01/06/20 9:22:00 EDT, Tablet, [facility] #[id number], 198.12, cm, 01/06/20 8:06:00 EDT, Height, 58, kg, 12/30/19 3:29:00 EDT, Dry Weight Start Date: 01/06/20 Status: Ordered gabapentin 300 mg oral capsule 300 mg, 1, capsule, By Mouth, 3 times a day, # 90 capsule, Refills 1, Tot. Refills 1, Maintenance, 01/06/20 9:23:00 EDT, Route to Pharmacy Electronically, [facility] #[id number], 198.12, cm, 01/06/20 8:06:00 EDT, Height, 58, kg, 12/30/19 3:29:00... Start Date: 01/06/20 Status: Ordered hydrOXYzine pamoate 50 mg oral capsule 1 capsule = 50 mg, By Mouth, 2 times a day, PRN Anxiety, Take NEEDED up to twice daily for anxiety/sleep, # 50 capsule, 1 Refills, Maintenance, 01/06/20 9:27:00 EDT, Capsule, [facility] #[id number], 198.12, cm, 01/06/20 8:06:00 EDT, Height, 58... Start Date: 01/06/20 Status: Ordered lithium 600 mg oral capsule 1 capsule = 600 mg, By Mouth, 2 times a day, # 60 capsule, 1 Refills, Maintenance, 01/06/20 9:23:00EDT, Capsule, [facility] #[id number], 198.12, cm, 01/06/20 8:06:00 EDT, Height, 58, kg, 12/30/19 3:29:00 EDT, Dry Weight Start Date: 01/06/20 Status: Ordered Lyrica 50 mg oral capsule 1 capsule = 50 mg, By Mouth, 3 times a day, # 90 capsule, 1 Refills, Maintenance, 01/06/20 9:27:00 EDT, Capsule, [facility] #[id number], 198.12, cm, 01/06/20 8:06:00 EDT, Height, 58, kg, 12/30/19 3:29:00 EDT, Dry Weight Start Date: 01/06/20 Status: Ordered mirtazapine 7.5 mg oral tablet 1 tablet = 7.5 mg, By Mouth, Daily at bedtime, # 30 tablet, 1 Refills, Maintenance, 01/06/20 9:25:00 EDT, [facility] #[id number], 198.12, cm, 01/06/20 8:06:00 EDT, Height, 58, kg, 12/30/19 3:29:00 EDT, Dry Weight Start Date: 01/06/20 Status: Ordered Nicoderm C-Q Clear 21 mg/24 hr transdermal film, extended release 1 patch, Topically, Daily, # 30 patch, 1 Refills, Acute 03/08/20 9:24:00 EDT, 01/06/20 9:24:00 EDT,Patch, [facility] #[id number], 198.12, cm, 01/06/20 8:06:00 EDT, Height, 58, kg, 12/30/19 3:29:00 EDT, Dry Weight Start Date: 01/06/20 Stop Date: 03/08/20 Status: Ordered Nicotine 2 mg gum = 2 mg, Chew, Every hour, PRN Other, cigarette craving, # 60 each, 1 Refills, Acute 03/08/20 9:25:00 EDT, 01/06/20 9:25:00 EDT, Gum, [facility] #[id number], 198.12, cm, 01/06/20 8:06:00 EDT, Height, 58, kg, 12/30/19 3:29:00 EDT, Dry Weight Start Date: 01/06/20 Stop Date: 03/08/20 Status: Ordered olanzapine 5 mg oral tablet 5 mg, 1, tablet, By Mouth, Daily, # 30 tablet, Refills 1, Tot. Refills 1, Maintenance, 01/06/20 9:26:00 EDT, Route to Pharmacy Electronically, [facility] #[id number], 198.12, cm, 01/06/20 8:06:00 EDT, Height, 58, kg, 12/30/19 3:29:00 EDT, Dry Weight Start Date: 01/06/20 Status: Ordered pantoprazole 40 mg oral delayed release tablet 1 tablet = 40 mg, By Mouth, Daily, # 30 tablet, 1 Refills, Maintenance, 01/06/20 9:26:00 EDT, [facility], 198.12, cm, 01/06/20 8:06:00 EDT, Height, 58, kg, 12/30/19 3:29:00 EDT, Dry Weight Start Date: 01/06/20 Status: Ordered ZyPREXA 2.5 mg oral tablet 2.5 mg, 1, tablet, By Mouth, 2 times a day, PRN, Take NEEDED up to two times per day, for severeagitation/anxiety, # 10 tablet, Refills 1, Tot. Refills 1, Acute 03/08/20 9:29:00 EDT, Agitation, 01/06/20 9:28:00 EDT, Route to Pharmacy [facility] Start Date: 01/06/20 Stop Date: 03/08/20 Status: Ordered Problem List Condition Effective Dates Status Health Status Inform ant Hypertension(Confirmed) Active Major depressive disorder(Confirmed) Active PTSD (post-traumatic stress disorder)(Confirmed) Active Tobacco use disorder(Confirmed) Active Social History Social History Type Response Smoking Status Current every day brittany simms entered on: 12/03/17 Sex
--- OUTSIDE RECORDS SUMMARY | 2024-01-03 20:24 | XMS_ITS | Continuity of Care Document ---
Author Organization [facility] Address Unknown Care Team Providers Care Case Liner Name Role Phone Kimberly Lockhart MD, Zander Primary Care Phys ician Encounter [facility] [id number] Date(s): 05/11/21 - 05/18/21 [facility] Attending Physician: Dillan Childs MD Referring Physician: Zander Xavier MD Allergies, [...] tablet, 1 Refills, Maintenance, 10/18/20 11:23:00 EDT, [facility] #[id number], Partial fill upon patient request if the [...] 1 Refills, Maintenance, 10/18/20 11:19:00 EDT, Tablet, [facility] #[id number], Partial fill upon patient request if the prescriptionis for a schedule II opioid drug., 198, cm, ... Start Date: 10/18/20 Status: Ordered multivitamin with minerals Vitamin D with Minerals oral tablet 1 tablet, By Mouth, Daily, # 30 tablet, 1 Refills, Maintenance, 10/31/20 10:35:00 EDT, Capsule, [facility] #[id number], Partial fill upon patient request if the prescription is for a schedule IIopioid drug., 1 tablet By Mouth Daily, 193, cm, ... Start Date: 10/31/20 Status: Ordered nicotine 14 mg/24 hr transdermal film, extended release 1 patch, Topically, Daily, # 30 patch, 1 Refills, Maintenance, 02/09/21 10:23:00 EDT, Patch, [facility] #[id number], Partial fill upon patient request if the prescription is for a schedule II opioid drug., 1 patch Topically Daily, 196, cm, ... Start Date: 02/09/21 Status: Ordered nicotine 2 mg oral transmucosal gum = 2 mg, Chew, Every 15 minutes, PRN Other, Cigarette craving. Not to exceed 30 doses in 24 hours, #160 each, 1 Refills, Maintenance, 02/09/21 10:22:00 EDT, Gum, [facility] #[id number], Partial fill upon patient request if the [...] 0 Refills, Maintenance, 04/23/21 13:22:00 EST, Tablet, [facility] #[id number], Partial fill upon patient requestif the prescription [...] Most recent to oldest [Reference Range]: 1 Height 196 cm (05/11/21 12:58 PM) Weight 82.7 kg (05/11/21 12:58 PM) Pulse Rate [55-90 bpm] 97 bpm *H* (05/11/21 12:58 PM) Body Mass Index [18.5-24.99] 21.53 (05/11/21 12:58 PM) Blood Pressure [90-138/55-84 mm Hg] 125/ 81mm Hg (05/11/21 12:58 PM) Respiratory Rate [16-30 br/min] 16 br/mi n (05/11/21 12:58 PM) Temperature [96.8-100.4 DegF] 97.4 DegF (05/11/21 12:58 PM) Blood pressure sites Arm, right (05/11/21 12:58 PM) Temperature Route Temporal (05/11/21 12:58 PM) Weight Obtained Via Standing scale (05/11/21 12:58 PM) Social History Social History Type Response Smoking Status Current every day brittany simms entered on: 12/03/17 Sex
--- OUTSIDE RECORDS SUMMARY | 2024-01-03 20:24 | XMS_ITS | Continuity of Care Document ---
Author Organization [facility] ter Address [address] [place] [id number]- Care Team Providers Care Manager Performance Name Role Phone Kimberly Lockhart MD, Zander Primary Care Phys ician Encounter [facility] Date(s): 02/02/20 - 02/03/[address] [address]- [facility] Encounter Diagnosis Cocaine use(Final) - 02/02/20 Discharge Disposition: Transfer to [facility] Facility Attending Physician: Chinmay Balbuena MD Admitting Physician: Chinmay Balbuena MD Referring Physician: Not on Staff, Referring [...] 1 Refills, Maintenance, 01/06/20 10:10:00 EDT, Gel, [facility] #[id number], 198.12, cm, 01/06/20 8:06:00 EDT, Height, 58, kg, 12/30/19 3:29:00 EDT, Dry Weight Start Date: 01/06/20 Status: Ordered escitalopram 20 mg oral tablet 1 tablet = 20 mg, By Mouth, Daily, # 30 tablet, 1 Refills, Maintenance, 01/06/20 9:22:00 EDT, Tablet, [facility] #[id number], 198.12, cm, 01/06/20 8:06:00 EDT, Height, 58, kg, 12/30/19 3:29:00 EDT, Dry Weight Start Date: 01/06/20 Status: Ordered gabapentin 300 mg oral capsule 300 mg, 1, capsule, By Mouth, 3 times a day, # 90 capsule, Refills 1, Tot. Refills 1, Maintenance, 01/06/20 9:23:00 EDT, Route to Pharmacy Electronically, [facility] #[id number], 198.12, cm, 01/06/20 8:06:00 EDT, Height, 58, kg, 12/30/19 3:29:00... Start Date: 01/06/20 Status: Ordered hydrOXYzine pamoate 50 mg oral capsule 1 capsule = 50 mg, By Mouth, 2 times a day, PRN Anxiety, Take NEEDED up to twice daily for anxiety/sleep, # 50 capsule, 1 Refills, Maintenance, 01/06/20 9:27:00 EDT, Capsule, [facility] #[id number], 198.12, cm, 01/06/20 8:06:00 EDT, Height, 58... Start Date: 01/06/20 Status: Ordered lithium 600 mg oral capsule 1 capsule = 600 mg, By Mouth, 2 times a day, # 60 capsule, 1 Refills, Maintenance, 01/06/20 9:23:00EDT, Capsule, [facility] #[id number], 198.12, cm, 01/06/20 8:06:00 EDT, Height, 58, kg, 12/30/19 3:29:00 EDT, Dry Weight Start Date: 01/06/20 Status: Ordered Lyrica 50 mg oral capsule 1 capsule = 50 mg, By Mouth, 3 times a day, # 90 capsule, 1 Refills, Maintenance, 01/06/20 9:27:00 EDT, Capsule, [facility] #[id number], 198.12, cm, 01/06/20 8:06:00 EDT, Height, 58, kg, 12/30/19 3:29:00 EDT, Dry Weight Start Date: 01/06/20 Status: Ordered mirtazapine 7.5 mg oral tablet 1 tablet = 7.5 mg, By Mouth, Daily at bedtime, # 30 tablet, 1 Refills, Maintenance, 01/06/20 9:25:00 EDT, [facility] #[id number], 198.12, cm, 01/06/20 8:06:00 EDT, Height, 58, kg, 12/30/19 3:29:00 EDT, Dry Weight Start Date: 01/06/20 Status: Ordered Nicoderm C-Q Clear 21 mg/24 hr transdermal film, extended release 1 patch, Topically, Daily, # 30 patch, 1 Refills, Acute 03/08/20 9:24:00 EDT, 01/06/20 9:24:00 EDT,Patch, [facility] #[id number], 198.12, cm, 01/06/20 8:06:00 EDT, Height, 58, kg, 12/30/19 3:29:00 EDT, Dry Weight Start Date: 01/06/20 Stop Date: 03/08/20 Status: Ordered Nicotine 2 mg gum = 2 mg, Chew, Every hour, PRN Other, cigarette craving, # 60 each, 1 Refills, Acute 03/08/20 9:25:00 EDT, 01/06/20 9:25:00 EDT, Gum, [facility] #[id number], 198.12, cm, 01/06/20 8:06:00 EDT, Height, 58, kg, 12/30/19 3:29:00 EDT, Dry Weight Start Date: 01/06/20 Stop Date: 03/08/20 Status: Ordered olanzapine 5 mg oral tablet 5 mg, 1, tablet, By Mouth, Daily, # 30 tablet, Refills 1, Tot. Refills 1, Maintenance, 01/06/20 9:26:00 EDT, Route to Pharmacy Electronically, [id number], 198.12, cm, 01/06/20 8:06:00 EDT, Height, 58, [...] Range]: 1 2 3 Height 196 cm (02/03/20 3:35 AM) 196 cm (02/02/20 10:00 PM) 196 cm (02/02/20 8:29 PM) Weight 72 kg (02/03/20 3:35 AM) 72 kg (02/02/20 10:00 PM) 72 kg (02/02/20 8:29 PM) Oxygen Saturation [94-100 %] 99 % (02/03/20 12:52 PM) 100 % (02/03/20 3:35 AM) 100 % (02/02/20 10:00 PM) Pulse Rate [55-90 bpm] 61 bpm (02/03/20 12:52 PM) 55 bpm (02/03/20 3:35 AM) 42 bpm *L* (02/02/20 10:00 PM) Body Mass Index [18.5-24.99] 18.74 (02/03/20 3:35 AM) 18.74 (02/02/20 10:00 PM) 18.74 (02/02/20 8:29 PM) Blood Pressure [90-138/55-84 mm Hg] 111/71mm Hg (02/03/20 12:52 PM) 109/69mm Hg (02/03/20 3:35 AM) 114/65mm Hg (02/02/20 10:00 PM) Respiratory Rate [16-30 br/min] 18 br/min (02/03/20 12:52 PM) 18 br/min (02/03/20 10:02 AM) 18 br/min (02/03/20 3:35 AM) Temperature [96.8-100.4 DegF] 98.1 DegF (02/03/20 12:52 PM) 97.9 DegF (02/03/20 3:35 AM) 97.9 DegF (02/02/20 10:00 PM) Mode of Delivery (Oxygen) Room air (02/03/20 12:52 PM) Room air (02/03/20 3:35 AM) Room air (02/02/20 10:00 PM) Blood pressure sites Arm, left (02/03/20 12:52 PM) Arm, left (02/03/20 3:35 AM) Arm, left (02/02/20 10:00 PM) Temperature Route Oral (02/03/20 12:52 PM) Oral (02/03/20 3:35 AM) Oral (02/02/20 10:00 PM) Dry Weight 72 kg (02/03/20 3:35 AM) 72 kg (02/02/20 10:00 PM) 72 kg (02/02/20 8:29 PM) Weight Obtained Via Patient/family state d (02/02/20 8:52 AM) Dry Weight Obtained Via Patient/family s tated (02/02/20 8:52 AM) Social History Social History Type Response Smoking Status Current every day brittany simms entered on: 12/03/17 Sex
--- OUTSIDE RECORDS SUMMARY | 2024-01-03 20:25 | XMS_ITS | Continuity of Care Document ---
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 Name Role Phone Kimberly Lockhart MD, Zander Primary Care Phys ician Encounter [facility] [place] Date(s): 09/07/23 - 09/07/[address] [address]- Encounter Diagnosis Cocaine use(Final) - 09/07/23 Homeless(Final) - 09/07/23 Discharge Disposition: A-D/C Home Attending Physician: Emerald Wolf MD Admitting Physician: Emerald Wolf MD Referring Physician: Not on Staff, Referring MD Allergies, Adverse Reactions, Alerts Substance Reaction Severity Status penicillin childhood allergy-unknown Ac tive Avocado full body rash Active Haldol skin crawling Active SEROquel 1 disoriented and sleepy Activ e 1patient states he is allergic and had a reaction in the past Immunizations Given and Recorded Vaccine Date Status Refusal Reason tetanus/diphtheria/pertussis, acel(Tdap) 08/31/23 Given pneumococcal 23-valent vaccine 1 03/20/18 Given influenza [...] TIMES DAILY Start Date: 07/07/23 Status: Ordered lithium 600 mg oral capsule TAKE ONE CAPSULE BY MOUTH AT BEDTIME Start Date: 07/07/23 Status: Ordered mirtazapine 15 mg oral tablet TAKE 1/2 TABLET BY MOUTH AT BEDTIME Start Date: 07/07/23 Status: Ordered ondansetron 4 mg oral tablet, disintegrating 1 tablet = 4 mg, By Mouth, Every 8 hours, PRN as needed for nausea/vomiting, # 8 tablet, 0 Refills,Maintenance, 08/05/23 14:50:00 EST, DIS Tablet, [facility] #[id number], Partial fill upon patient request if the prescription is for a schedule II... Start Date: 08/05/23 Stop Date: 08/08/23 Status: Ordered topiramate 25 mg oral tablet TAKE 1 TABLET BY MOUTH TWICE DAILY Start Date: 07/07/23 Status: Ordered Problem List Condition Confirmation Course Effective Dates Status Health St atus Informant Diabetes Confirmed Active Hypertension Confirmed Active Major depressive disorder Confirmed Active PTSD (post-traumatic stress disorder) Confirmed Active Tobacco use disorder Confirmed Active Underweight Confirmed Active Results Radiology Reports * Exam Date Time Procedure Performing Provider Status 09/07/23 3:35 AM Chest 2 Views Frontal and Lat Jose Agrawal; Yury (Verified) Notes: (Chest 2 Views Frontal and Lat) Reason For Exam: Chest Pain;Other: RESULT: Chest 2 Views Frontal and Lat Chest 2 Views Frontal and Lat HX OF PRESENT ILLNESS: pt presenting with 1 hour of vomiting starting [employer]. states he has been usingcrack cocaine regularly and wants to go to detox. denies SI HI. states he recently was released from a dual diagnosis program and has been on the streets since. c o CP; Reason: Other:; Chest Pain; Clinical Question(s): Other: / Other: COMPARISON: 08/05/2023 FINDINGS: LINES AND TUBES: None. LUNGS AND PLEURA: Hyperinflated lungs with coarse lung markings and hyperlucent lung apices particularly on the right. No consolidation. No pleural effusion. No pneumothorax. HEART, MEDIASTINUM AND FREIDA: Heart is normal in size. Normal mediastinal and hilar contour. BONES AND SOFT TISSUES: No acute abnormality. IMPRESSION: No evidence of acute abnormality. COPD. WSN: [id number] Ordering Physician: Genesis Cano Dictated By: Ilia Aguirre MD Dictated Date/Time: 09/07/23 6:44 am Reviewed By: Ilia Aguirre MD Signed By: Ilia Aguirre MD Signed Date/Time: 09/07/23 6:44 am Transcribed By: KENYETTA Transcribed Date/Time: 09/07/23 6:43 am Vital Signs Most recent to oldest [Reference Range]: 1 2 3 Height 187 cm (09/07/23 2:56 AM) 187 cm (09/07/23 2:51 AM) Weight 63.5 kg (09/07/23 2:56 AM) 63.5 kg (09/07/23 2:51 AM) Oxygen Saturation [94-100 %] 100 % (09/07/23 8:11 AM) 100 % (09/07/23 5:44 AM) 100 % (09/07/23 4:37 AM) Pulse Rate [55-90 bpm] 84 bpm (09/07/23 8:11 AM) 94 bpm *H* (09/07/23 5:44 AM) 106 bpm *H* (09/07/23 4:37 AM) Body Mass Index [18.5-24.99 kg/m2] 18.16 kg/m2 *L* (09/07/23 2:51 AM) Blood Pressure [90-138/55-84 mm Hg] 120/53mm Hg (09/07/23 8:11 AM) 123/52mm Hg (09/07/23 5:44 AM) 120/68mm Hg (09/07/23 4:37 AM) Respiratory Rate [16-30 br/min] 16 br/min (09/07/23 8:11 AM) 16 br/min (09/07/23 5:44 AM) 17 br/min (09/07/23 2:51 AM) Temperature [96.8-100.4 DegF] 98.1 DegF (09/07/23 4:37 AM) 98.1 DegF (09/07/23 2:51 AM) Mode of Delivery (Oxygen) Room air (09/07/23 8:11 AM) Room air (09/07/23 5:44 AM) Room air (09/07/23 4:37 AM) Blood pressure sites Arm, right (09/07/23 8:11 AM) Arm, right (09/07/23 5:44 AM) Arm, right (09/07/23 4:37 AM) Temperature Route Oral (09/07/23 4:37 AM) Oral (09/07/23 2:51 AM) Dry Weight 63.5 kg (09/07/23 2:56 AM) 63.5 kg (09/07/23 2:51 AM) Weight Obtained Via Standing scale (09/07/23 2:51 AM) Dry Weight Obtained Via Standing scale (09/07/23 2:51 AM) Social History Social History Type Response Smoking Status Never (less than 100 in lifetime) entered on: 08/31/21 Sex Implantable Device List Procedure Provider Procedure Date Device Type Site Repair Hernia Inguinal Laparoscopic Dillan Childs MD 07/19/21 Unknown Pelvis Left Device Identifier Serial Number Lot or Batch Number Manufacturing Date Expiration Date Distinct Identification Code MRI Safety Implantable Status Assigning Authority [id number] Unknown [id number] Unknown 01/27/23 Unknown Unknown Active GS1 EKG study * Event Display: ECG 12-Lead Authored Date: Please click on pdf link to open report * Event Display: ECG 12-Lead Authored Date: Ventricular Rate: 77 BPM Atrial Rate: 77 BPM P-R Interval: 142 ms QRS Duration: 74 ms Q-T Interval: 378 ms QTC Calculation(Bazett): 427 ms P [place]: 81 degrees R [place]: 79 degrees T [place]: 66 degrees Normal sinus rhythm Minimal voltage criteria for LVH, may be normal variant ( Sokolow-Rey ) Borderline ECG When compared with ECG of 29-AUG-2023 20:41, No significant change was found Confirmed by MOHINI FARRIS MD ([id number]) on 09/07/2023 10:32:08 AM [place]: MOHINI FARRIS MD Note * Nuzhat Olmos DO: PERFORM Event Display: Patient Education Leaflets Authored Date: [id number] Cocaine and Crack Abuse ?? [id number] Cocaine and Crack Abuse Cocaine is typically snorted or injected into a vein. It can also be rubbed onto the gums.??Crack is made from cocaine. It can be smoked for a stronger effect. Cocaine causes a very powerful mental and physical dependence.?? Once you have a dependence, you'll do just about anything to get the drug and have the feeling it gives you. This can increase your risk for: ??? Overdose that may lead to ??? Loss of your job, your home, or your family ??? Accidental injuries to yourself or others while you are under the influence of the drug (in a car or at home) ??? Arrest, conviction, and correction sentence for possession of an illegal substance or for driving underthe influence Medically, cocaine can affect every organ in your body.??It can cause: ??? Chest pain, heart rhythm problem (arrhythmia), heart attack, and heart failure ??? Very high blood pressure ??? Severe headache, seizures, loss of consciousness, and stroke ??? Anxiety, psychosis, confusion, paranoia, and hallucinations ??? Nasal damage from snorting ??? Nausea, belly (abdominal) pain, and loss of appetite ??? Chronic bronchitis and shortness of breath from smoking ??? Higherrisk for HIV infection, hepatitis B or C, and heart infection. This is from IV use, risky sexual behavior while high, or both.? Kidney failure Home care These tips will help you care for yourself at home: ??? Admit you have a drug problem. Ask for help from your family and close friends. ??? See a mental health provider or counselor if you have depression or anxiety. ??? Join a self-help group for drug abuse. ??? Stay away from people who abuse drugs themselves or who tempt you to continue abusing the drug. ??? Eat a balanced diet and start a regular exercise program. If you continue to use IV cocaine, lower your risk of getting or spreading infection by: ??? Using only sterile equipment ??? Not reusing or sharing equipment ??? Cleaning your skin before injecting ?? Follow-up care Follow up with your healthcare provider, or as advised. Contact 1 of the resources below for help: ??? Substance Abuse and Mental Health Treatment Administration (SAMHSA) at www.samhsa.gov/find-treatment or 112-103-LXBJ ??? [facility] [place] on Drug Abuse ([place]ISS) at www.drugabuse.gov ? National [place] on Alcoholism and Drug Dependence at www.ncadd.org ??? Narcotics Anonymous at www.na.org ?? Call 911 Call 911 if any of these occur: ??? Seizure ??? Hard time breathing or slow, irregular breathing ??? Chest pain ??? Sudden weakness on 1 side of your body or sudden trouble speaking ??? Very drowsy or trouble waking up ??? Fast heart rate ?? When to get medical advice Call your healthcare provider right away if any of the following occur: ??? Agitation, anxiety, or unable to sleep ??? Unintended weight loss. This means more than 10 to 15 pounds over 6 months without dieting. ??? Hallucination, severe depression, or thoughts of harming yourself or another ??? Fever of 100.4??F??(38??C) or higher, or as advised by your provider ??? Redness, pain, or swelling at an injection site ??? Loss of vision or decreased vision ?? Last Reviewed Date: 2021 ?? 6887-5777 The [employer]. All rights reserved. This information is not intended as a substitute for professional medical care. Always follow your healthcare professional's instructions. ?? Patient Care team information Care Team Personnel Name: Zander Xavier MD Position: [facility] Outreach Member Role: PCP Address: Address: [address] [place] [id number] Name: Paul Menon RN Position: [facility] RN Member Role: Primary Care Nurse Name: Maryanne Ny Position: [facility] RN Member Role: Primary Care Nurse Name: Melissa Pham RN Position: [facility] Nurse Member Role: Primary Care Nurse Name: Su Lewis RN Position: [facility] RN Member Role: Primary Care Nurse Care Team Related Persons Name: TONY PATEL Address: [place] [address] Name: YULY HE Address: home [address] [place] [address]
--- OUTSIDE RECORDS SUMMARY | 2024-01-03 20:25 | XMS_ITS | Continuity of Care Document ---
Author Organization [facility] al Address [address] [place] [address]- Care Team Providers Care Protohistorian Name Role Phone Kimberly Lockhart MD, Zander Primary Care Phys ician Encounter [facility] Date(s): 10/09/20 - 10/09/[address] [address] Discharge Disposition: A-D/C Home Attending Physician: Farhan Suarez MD Admitting Physician: Farhan Suarez MD Referring Physician: Farhan Suarez MD Allergies, Adverse Reactions, Alerts Substance Reaction [...] 2 Refills, Maintenance, 02/11/20 11:03:00 EDT, Tablet, [facility][id number], 195, cm, 02/11/20 8:06:00 EDT, Height, 74.84, kg, 02/04/20 16:58:00EDT, Dry Weight Start Date: 02/11/20 Stop Date: 03/24/20 Status: Ordered lithium 600 mg oral capsule = 600 mg, By Mouth, 2 times a day, # 28 capsule, 2 Refills, Maintenance, 02/11/20 11:01:00 EDT, Capsule, [facility] #[id number], 195, cm, 02/11/20 8:06:00 EDT, Height, 74.84, kg, 02/04/20 16:58:00 EDT, Dry Weight Start Date: 02/11/20 Stop Date: 03/24/20 Status: Ordered mirtazapine 15 mg oral tablet 0.5 tablet = 7.5 mg, By Mouth, Daily at bedtime, # 15 tablet, 1 Refills, Maintenance, 02/11/20 11:04:00 EDT, Tablet, [facility] #[id number], 195, cm, 02/11/20 8:06:00 EDT, Height, 74.84, [...] each, 0 Refills, Maintenance, 08/29/20 13:16:00 EDT, [facility] #[id number], Ok to sub for any gallon prep, as directed, 198, cm, 04/05/20 8:30:00 EST, Height,76, kg, 04/05/20 8:30:00 EST, Dry Weight Start Date: 08/29/20 Status: Ordered sucralfate 1 gm oral tablet 1 Gm, 1, tablet, By Mouth, 2 times a day, on an empty stomach, # 180 tablet, Refills 0, Tot. Refills 0, Maintenance, 06/26/20 16:12:00 EST, Route to Pharmacy Electronically, [facility] #[id number], Partial fill upon patient request if the prescri... Start Date: 06/26/20 Status: Ordered Suprep Bowel Prep Kit oral liquid See Instructions, drink 1 bottle around 6pm day before procedure, drink second bottle morning of procedure but complete at least 4 hours prior to procedure., # 1 each, 0 Refills, Maintenance, 08/21/20 9:17:00 EDT, [facility] #[id number], Partial... Start Date: 08/21/20 Status: Ordered ZyPREXA [...] stress disorder)(Confirmed) Active Tobacco use disorder(Confirmed) Active Procedures Procedure Date Related Diagnosis Body Site Status Colonoscopy 10/09/20 Completed Esophagogastroduodenoscopy 10/09/20 Completed Vital Signs Most recent to oldest [Reference Range]: 1 Oxygen Saturation [94-100 %] 96 % (10/09/20 1:42 PM) Pulse Rate [55-90 bpm] 45 bpm *L* (10/09/20 1:42 PM) Blood Pressure [90-138/55-84 mm Hg] 122/ 76mm Hg (10/09/20 1:42 PM) Respiratory Rate [16-30 br/min] 18 br/mi n (10/09/20 1:42 PM) Temperature [96.8-100.4 DegF] 98.5 DegF (10/09/20 1:42 PM) Mode of Delivery (Oxygen) Room air (10/09/20 1:42 PM) Blood pressure sites Arm, left (10/09/20 1:42 PM) Temperature Route Temporal (10/09/20 1:42 PM) Dry Weight 75 kg (10/09/20 1:42 PM) Social History Social History Type Response Smoking Status Current every day brittany simms entered on: 12/03/17 Sex
--- OUTSIDE RECORDS SUMMARY | 2024-01-03 20:25 | XMS_ITS | Continuity of Care Document ---
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 Refills 0, Acute 09/01/22 15:55:00 EDT, for pain, 08/31/21 15:55:00 EDT, Route to Pharmacy Electronically, [facility]acy #[id number], Partial fill upon patient request if the pres... Start Date: 08/31/21 Stop Date: 09/01/22 Status: Ordered chlorproMAZINE 50 mg oral tablet 1 tablet [...] opioid drug. Start Date: 02/06/21 Status: Ordered hydrOXYzine hydrochloride 25 mg oral tablet 2 tablet = 50 mg, By Mouth, 2 times a day, 0 Refills, Maintenance, 07/05/21 10:37:00 EST, Partial fill upon patient request if the prescription is for a schedule II opioid drug. Start Date: 07/05/21 Status: Ordered lithium 300 mg oral tablet 2 tablet = 600 mg, By Mouth, 2 times a day, # 90 tablet, 0 Refills, Maintenance, 07/09/21 11:16:00 EST, Tablet, Partial fill upon patient request if the prescription is for a schedule II opioid drug. Start Date: 07/09/21 Status: Ordered melatonin 3 mg oral tablet [...] 1 Refills, Maintenance, 10/18/20 11:19:00 EDT, Tablet, [facility] #[id number], Partial fill upon patient request if the prescriptionis for a schedule II opioid drug., 198, cm, ... Start Date: 10/18/20 Status: Ordered olanzapine 2.5 mg oral tablet 2.5 mg, 1, tablet, By Mouth, Daily at bedtime, PRN, Refills 0, Maintenance, Anxiety, 02/06/21 14:34:00 EDT, Partial fill upon patient request if the prescription is for a schedule II opioid drug. Start Date: 02/06/21 Status: Ordered olanzapine 5 mg oral tablet 5 mg, 1, tablet, By Mouth, Daily, Refills 0, Maintenance, 07/05/21 10:35:00 EST, Partial fill upon patient request if the prescription is for a schedule II opioid drug. Start Date: 07/05/21 Status: Ordered prazosin 5 mg oral capsule [...] 100 in lifetime) entered on: 08/31/21 Sex Medical Equipment Implanted Date:07/19/21Target Site:Pelvis Left Description Quantity MRI Company Model MESH VENTRALIGHT ECHO ELLIPS 4 - BARD ([id number]) 1 Bard Unknown QUYEN:{[id number] Assigning Author ity:FDA
--- OUTSIDE RECORDS SUMMARY | 2024-01-03 20:25 | XMS_ITS | Continuity of Care Document ---
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 Start Date: 10/31/20 Stop Date: 11/30/20 Status: Ordered escitalopram 10 mg oral tablet 1 tablet = 10 mg, By Mouth, Daily, # 30 tablet, 1 Refills, Maintenance, 10/18/20 11:18:00 [facility]T, [id number], Partial fill upon patient request if the prescription is for a schedule II opioid drug., 198, cm, 10/18/20 10:14:00 EDT... Start Date: 10/18/20 Status: Ordered lithium 300 mg oral tablet 2 tablet = 600 mg, By Mouth, Daily at bedtime, # 60 tablet, 1 Refills, Maintenance, 10/18/20 11:23:00 EDT, [facility] #[id number], Partial fill upon patient request if the [...] 1 Refills, Maintenance, 10/18/20 11:19:00 EDT, Tablet, [facility] #[id number], Partial fill upon patient request if the prescriptionis for a schedule II opioid drug., 198, melody, ... Start Date: 10/18/20 Status: Ordered multivitamin with minerals Vitamin D with Minerals oral tablet 1 tablet, By Mouth, Daily, # 30 tablet, 1 Refills, Maintenance, 10/31/20 10:35:00 EDT, Capsule, [facility] #[id number], Partial fill upon patient request if the prescription is for a schedule IIopioid drug., 1 tablet By Mouth Daily, 193, cm, ... Start Date: 10/31/20 Status: Ordered olanzapine 5 mg oral tablet 5 mg, 1, tablet, By Mouth, 2 times a day, # 60 tablet, Refills 1, Tot. Refills 1, Maintenance, 10/31/20 10:35:00 EDT, Route to Pharmacy Electronically, [facility] #[id number], Partial fill upon patient request if the [...] 10/18/20 11:21:00 EDT, Route to Pharmacy Electronically, [facility][id number], Partial fill upon patient request if the prescription is for a schedul... Start Date: 10/18/20 Status: Ordered Problem List Condition Effective Dates Status Health Status Inform ant Diabetes(Confirmed) Active Hypertension(Confirmed) Active Major depressive disorder(Confirmed) Active PTSD (post-traumatic stress disorder)(Confirmed) Active Tobacco use disorder(Confirmed) Active Vital Signs Most recent to oldest [Reference Range]: 1 2 3 Oxygen Saturation [94-100 %] 99 % (11/08/20 10:24 AM) 99 % (11/08/20 3:53 AM) Pulse Rate [55-90 bpm] 64 bpm (11/08/20 10:24 AM) 62 bpm (11/08/20 3:53 AM) 80 bpm (11/07/20 11:42 PM) Blood Pressure [90-138/55-84 mm Hg] 98/54mm Hg (11/08/20 10:24 AM) 109/73mm Hg (11/08/20 3:53 AM) 126/72mm Hg (11/07/20 11:42 PM) Respiratory Rate [16-30 br/min] 17 br/min (11/08/20 10:24 AM) 18 br/min (11/08/20 3:53 AM) 18 br/min (11/07/20 11:42 PM) Temperature [96.8-100.4 DegF] 98 DegF (11/08/20 10:24 AM) 97.6 DegF (11/08/20 3:53 AM) 98.0 DegF (11/07/20 11:42 PM) Mode of Delivery (Oxygen) Room air (11/08/20 10:24 AM) Room air (11/08/20 3:53 AM) Room air (11/07/20 11:42 PM) Blood pressure sites Arm, left (11/08/20 10:24 AM) Arm, left (11/08/20 3:53 AM) Arm, left (11/07/20 11:42 PM) Temperature Route Oral (11/08/20 10:24 AM) Oral (11/08/20 3:53 AM) Oral (11/07/20 11:42 PM) Social History Social History Type Response Smoking Status Current every day brittany simms entered on: 12/03/17 Sex
--- OUTSIDE RECORDS SUMMARY | 2024-01-03 20:25 | XMS_ITS | Continuity of Care Document ---
Author Organization [facility] Address [address] [place] [address] [address] [place] [address]- Care Team Providers Care Millinery Blocker Name Role Phone Kimberly Lockhart MD, Zander Primary Care Phys ician [place] [facility] [place] - 11/25/[address] [place] [address]- Allergies, Adverse Reactions, Alerts Substance Reaction Severity [...] tablet, 0 Refills, Maintenance, 10/31/20 10:35:00 EDT, Tablet, [facility] Start Date: 10/31/20 Stop Date: 11/30/20 Status: Ordered escitalopram 10 mg oral tablet 1 tablet = 10 mg, By Mouth, Daily, # 30 tablet, 1 Refills, Maintenance, 10/18/20 11:18:00 EDT, Tablet, [id number], Partial fill upon patient request if the prescription is for a schedule II opioid drug., 198, cm, 10/18/20 10:14:00 EDT... Start Date: 10/18/20 Status: Ordered lithium 300 mg oral tablet 2 tablet = 600 mg, By Mouth, Daily at bedtime, # 60 tablet, 1 Refills, Maintenance, 10/18/20 11:23:00 EDT, [facility] #[id number], Partial fill upon patient request if the [...] 1 Refills, Maintenance, 10/18/20 11:19:00 EDT, Tablet, [facility] #[id number], Partial fill upon patient request if the prescriptionis for a schedule II opioid drug., 198, cm, ... Start Date: 10/18/20 Status: Ordered multivitamin with minerals Vitamin D with Minerals oral tablet 1 tablet, By Mouth, Daily, # 30 tablet, 1 Refills, Maintenance, 10/31/20 10:35:00 EDT, Capsule, [facility] #[id number], Partial fill upon patient request if the prescription is for a schedule IIopioid drug., 1 tablet By Mouth Daily, 193, cm, ... Start Date: 10/31/20 Status: Ordered olanzapine 5 mg oral tablet 5 mg, 1, tablet, By Mouth, 2 times a day, # 60 tablet, Refills 1, Tot. Refills 1, Maintenance, 10/31/20 10:35:00 EDT, Route to Pharmacy Electronically, [facility] #[id number], Partial fill upon patient request if the [...] 10/18/20 11:21:00 EDT, Route to Pharmacy Electronically, [facility] #[id number], Partial fill upon patient request if the [...]
--- OUTSIDE RECORDS SUMMARY | 2024-01-03 20:25 | XMS_ITS | Continuity of Care Document ---
Author Organization [facility] ter Address [address] [place] [address]- Care Team Providers Care Industrial Retrofit Designer Name Role Phone Kimberly Lockhart MD, Zander Primary Care Phys ician Encounter [facility] Date(s): 08/29/23 - 09/01/[address] [address]- Encounter Diagnosis Polysubstance abuse(Final) - 08/30/23 Suicidal ideation(Final) - 08/30/23 Discharge Disposition: Transfer to [facility] Facility Attending Physician: Froy Huston MD Admitting Physician: Froy Huston MD Referring Physician: Not on Staff, Referring [...] # 8 tablet, 0 Refills,Maintenance, 08/05/23 14:50:00 EST DIS Tablet, [id number], Partial fill upon patient request if the [...] use disorder Confirmed Active Underweight Confirmed Active Vital Signs Most recent to oldest [Reference Range]: 1 2 3 Oxygen Saturation [94-100 %] 98 % (09/01/23 11:45 AM) 98 % (08/31/23 6:05 PM) 97 % (08/31/23 9:21 AM) Pulse Rate [55-90 bpm] 120 bpm *H* (09/01/23 11:45 AM) 65 bpm (08/31/23 6:05 PM) 79 bpm (08/31/23 9:21 AM) Blood Pressure [90-138/55-84 mm Hg] 115/89mm Hg (09/01/23 11:45 AM) 118/64mm Hg (08/31/23 6:05 PM) 117/73mm Hg (08/31/23 9:21 AM) Respiratory Rate [16-30 br/min] 16 br/min (09/01/23 11:45 AM) 19 br/min (08/31/23 6:05 PM) 19 br/min (08/31/23 9:21 AM) Temperature [96.8-100.4 DegF] 98.7 DegF (09/01/23 11:45 AM) 98.7 DegF (08/31/23 9:21 AM) 97.7 DegF (08/30/23 7:50 AM) Mode of Delivery (Oxygen) Room air (08/31/23 6:05 PM) Room air (08/31/23 9:21 AM) Room air (08/30/23 7:50 AM) Blood pressure sites Arm, right (08/31/23 6:05 PM) Arm, left (08/31/23 9:21 AM) Arm, left (08/30/23 7:50 AM) Temperature Route Oral (09/01/23 11:45 AM) Oral (08/30/23 7:50 AM) Oral (08/30/23 12:06 AM) Social History Social History Type Response Smoking Status Never (less than 100 in lifetime) entered on: 08/31/21 Sex Implantable Device List Procedure Provider Procedure Date Device Type Site Repair Hernia Inguinal Laparoscopic Dillan Childs MD 07/19/21 Unknown Pelvis Left Device Identifier Serial Number Lot or Batch Number Manufacturing Date Expiration Date Distinct Identification Code MRI Safety Implantable Status Assigning Authority [id number] Unknown [id number] Unknown 01/27/23 Unknown Unknown Active GS1 EKG study * Event Display: ECG 12-Lead Authored Date: Please click on pdf link to open report * Event Display: ECG 12-Lead Authored Date: Ventricular Rate: 65 BPM Atrial Rate: 65 BPM P-R Interval: 146 ms QRS Duration: 90 ms Q-T Interval: 392 ms QTC Calculation(Bazett): 407 ms P Madison: 75 degrees R Madison: 72 degrees T Madison: 58 degrees Normal sinus rhythm Minimal voltage criteria for LVH, may be normal variant ( Sokolow-Rey ) Borderline ECG When compared with ECG of 05-AUG-2023 08:06, Questionable change in QRS axis T wave inversion no longer evident in Inferior leads Confirmed by JEFF PAGAN MD ([id number]) on 08/30/2023 9:59:[address]: JEFF PAGAN MD Consult note * Pola DIAZ, Caterina Taylor: PERFORM, MODIFY Event Display: Consultation Note Authored Date: [id number] Patient: ??GIANLUCA DAVIS ? Age:??43 Years?Sex:??Male?:??1980?? Chief Complaint/Reason for Consultation Pt coming from [facility]. He called 911 r/t addiction problem History of Present Illness Referring Physician:?Yonis ?? Chief Complaint / Reason for consult:?Medication management ?? Source of information:??Per patient,??[facility] records, crisis evaluations ?? Identifying information:?Pt is a 43 y.o. male who carries a past history of chronic cocaine abuse, alcohol use, PTSD, depression, and anxiety with rule out of bipolar disorder. He has PMH of DM, HTN. ?? History of Present Illness:?Patient is known to the [facility] psychiatry service from prior consultations and inpatient hospitalization at [facility] in 2020. He presented to [facility] ED on 08/30/2023 due to crack cocaine abuse (last used 1 hour prior to arriving at ED), endorsing SI with vagueplans, and med non- adherence. Of note, the pt presented to ED on 08/29/2023 with similar complaints but refused referral to [facility] and opted to leave ED to use crack cocaine. ?? Per ED note: ??pt became very agitated, jumped off stretcher and ran to ambulance door - I am going to f---ing kill myself. I don't care anymore . He was stopped by staff and patient actively resisted de-escalation by punching and kicking at staff. He was carried by security back to [facility] as he sat on floor and refused to get up. He was calm for a moment and then got up and ran again to leave- you are not f--ing going to help me and I am going to kill myself- please hurt me and break my neck! He was then escorted back to [facility] where he was given calming medications and restraints were ordered with concerns of self harm demonstrated during this time.??He was given 5 mg of IM haldol ??and 5 mg of IM versed. ?? Patient was subsequently medically cleared and referred to Crisis Services??for evaluation and assistance with disposition for potential inpatient psychiatric hospitalization. The emergency psychiatry service??was consulted for evaluation of psychotropic medication management. ?? Unable to obtain past medical, psychiatric and family history from the patient??due to??altered mentation secondary to acute psychiatric illness. Remainder of history is ascertained from extensive chart review. ?? Past Psychiatric History:?Patient has a history of psychiatric inpatient admission at [facility] in 07/07/2023 for SI and relapse on crack cocaine. Hx of multiple inpatient admissions (over 10).??IPLOC at [facility] on 10/24/2020 following IPLOC at??[facility] 10/18/2020 due to SI and crack cocaine abuse. IPLOC 01/2021 after??he endorsed??worsening SI at [facility] ([facility] substance use treatment facility). Reported history of??depression, PTSD. IPLOC at [facility] 02/2020 for mood disturbances, concerns of suicidal thoughts and??substance use disorder. IPLOC [facility] 01/2020 due to suicide attempt viawalking into traffic. ?? Current psychotropic medications:?Pt has been non-adherent ?? Past Treatment Trials:??Depakote, Thorazine 50 mg BID PRN, vistaril 50 mg TID PRN, [place] 300 mg BID, lexapro 10 mg daily, remeron, gabapentin. ?? Treatment Providers:?Denies having a psychiatrist or therapist in the outpatient setting. Wasbulmarot being seen at [facility] and psych provider was Jose Alberto Alcala, however had poor follow up. ?? Substance Use Patient admits to addiction to crack cocaine x 30 years, last used one hour prior to arrival at ED.Utox positive for cannabis, crack cocaine, and benzodiazepines. ?? Social History Living Situation -??Pt is currently homeless, had been staying at [facility]. Friends/Family/Support -??was born and [place], raised by both biological parents untilhis mother committed suicide when Gianluca was 17 year old, at which point, Gianluca and his 3 siblingswere placed into foster care. Gianluca never . He has a daughter who he has no contact??with. One of his sisters??is .?? Employment -??works at [employer] - Denies Access to firearms or lethal weapons - Denies Legal -??history of prior arrest and incarceration at age 19 for robbing a??store, domestic violence, drug possession, and DUI Trauma -??Pt's mother completed suicide when he was age 17. ?? Family History:?? Patient's mother from completed suicide, father had alcohol use disorder, sister had substanceuse disorder. Review of Systems A full ROS was completed and was negative with the exception of pertinent positives noted in the history of the presenting illness (HPI) Objective ? Vital Signs?? Temperature: 97.7 DegF (08/30/23 07:50:00) Temperature Route: Oral (08/30/23 07:50:00) Pulse Rate: 63 bpm (08/30/23 07:50:00) Respiratory Rate: 19 br/min (08/30/23 07:50:00) Systolic Blood Pressure: 99 mm Hg (08/30/23 07:50:00) Diastolic Blood Pressure: 66 mm Hg (08/30/23 07:50:00) Blood pressure sites: Arm, left (08/30/23 07:50:00) Mean Arterial Pressure: 77 mm Hg (08/30/23 07:50:00) Pulse Pressure: 33 mm Hg (08/30/23 07:50:00) Oxygen Saturation: 97 % (08/30/23 07:50:00) Mode of Delivery (Oxygen): Room air (08/30/23 07:50:00) ? Physical Exam Mental Status Exam Appearance: hospital attire, unkempt Eye contact: poor Attitude: Cguarded Motor Activity:??restless, psychomotor agitation Mood: Depressed Affect: Congruent, restricted Speech: Nonspontaneous, normal rate, low tone and??normal prosody Perception: No reported AVH;??no internal preoccupation or responding to internal stimuli Orientation: Intact to all spheres Memory: Grossly intact Thought Process: Coherent, goal-directed Thought Content: Themes of hopelessness and??helplessness. Reliability: Limited historian Insight: Limited Judgment: Limited Impulse control: Limited Suicidality/Self-destructive Behavior: None currently, but recent SI precipitating this presentation. Homicidality/Violence: None Muscle strength/tone: Antigravity. No rigidity noted. Moving all four extremities spontaneously. Ambulating without gait disturbance.?? Assessment/Plan ?? Assessment:?In brief, this is a 43 y.o. male who carries a past history of chronic cocaine abuse, alcohol use, PTSD, depression, and anxiety with rule out of bipolar disorder. He has PMH of DM, HTN. He presented to [facility] ED due to crack cocaine abuse, SI, making multiple threats to kill himself,attempting to elope from the ED. Pt has been non-adherent on his psych meds since discharge from [facility] 07/2023. Has long history of chronic relapsing on crack cocaine. Homeless. History of multiple inpatient admissions. History of suicide attempt via walking into traffic. Denies psychotic symptoms. ?? Diagnoses: PTSD MDD, recurrent episode [place]MP[place]REY Polysubstance use Cocaine use disorder ?? Recommendations: -Disposition as per Crisis Services, albeit currently a bed search for inpatient psychiatric hospitalization. -Potential barriers to placement: None -Continue constant sr account executive. Patient may NOT leave AMA without psychiatry clearance. -Re-start lexapro 10 mg daily, lithium 300 mg HS (pt is advocating to be back on lithium due to reported benefit, says he has been off/ on it x 10 years), and thorazine 50 mg PO/IM Q4 HR PRN for agitation. Can also utilize Vistaril 50 mg PO Q6H PRN anxiety. ?? The preference is for PO medications, but if the patient refuses the oral medications and there is sufficient acute safety concern, can judiciously utilize IM equivalents for severe agitation.?? -Would note that these medications are only being utilized in the ER while the patient awaits placement. Long-term need for these medications will need to be assessed by the patient's future treatingpsychiatrist. ?? Thank you for allowing us to participate in this patient's care. We will continue to follow the patient as needed by the primary team vs sign off. Please feel free to contact the Psychiatry consult service (call [phone] or page [phone]) with any questions or concerns.? Recommendations??sent via [employer]??to Dr. Stark ?? Caterina Escalona, PMHNP-, MSN Emergency Psychiatry Services Division of Consultation-Liaison Psychiatry Department of Psychiatry [facility] Allergies Allergies ?(Active and Proposed Allergies Only) Avocado? (Severity: Unknown severity, Onset: Unknown) ?Reactions: full body rash SEROquel? (Severity: Unknown severity, Onset: Unknown) ?Reactions: disoriented and sleepy ?Comments: patient states he is allergic and had a reaction in the past penicillin? (Severity: Unknown severity, Onset: Unknown) ?Reactions: childhood allergy-unknown Haldol? (Severity: Unknown severity, Onset: Unknown) ?Reactions: skin crawling ? Past Medical History/Problem List Active Problems??(6) Diabetes Hypertension Major depressive disorder PTSD (post-traumatic stress disorder) Tobacco use disorder Underweight ? Past Surgical History Colonoscopy: 10/09/20 Esophagogastroduodenoscopy: 10/09/20 ? Social History Alcohol Details:??Use: Past. Details:??Use: Past. Substance Abuse Details:??Use: Current. ??Type: Cocaine. ??Other: relapsed this past month on cocaine. Details:??Use: Current. ??Type: Marijuana. Tobacco Details:??Use: Never (less than 100 in lifetime). Details:??Current every day smoker Electronic Cigarette/Vaping Details:??Electronic Cigarette Use: Never. ? Psychosocial History ? Family History Mother: Mental illness Father: Alcoholism Sister: Substance abuse ? Medications Home Medications ChlorproMAZINE (chlorproMAZINE 25 mg oral tablet)?TAKE 3 TABLETS BY MOUTH TWICE DAILY Escitalopram (escitalopram 20 mg oral tablet)?TAKE 1 TABLET BY MOUTH EVERY MORNING Gabapentin (gabapentin 400 mg oral capsule)?TAKE 2 CAPSULES BY MOUTH THREE TIMES DAILY [place] (lithium 600 mg oral capsule)?TAKE ONE CAPSULE BY MOUTH AT BEDTIME Mirtazapine (mirtazapine 15 mg oral tablet)?TAKE 1/2 TABLET BY MOUTH AT BEDTIME Ondansetron (ondansetron 4 mg oral tablet, disintegrating)?1?tab(s)?4?Milligram?By Mouth?Every 8 hours?as needed?as needed for nausea/vomiting?for 3?Days Topiramate (topiramate 25 mg oral tablet)?TAKE 1 TABLET BY MOUTH TWICE DAILY ? Inpatient Medications Medications (14) Active SCHEDULED: (6) Escitalopram 10 mg Tablet (escitalopram 10 mg oral tablet) ??10 mg, By Mouth, Daily Folic Acid 1 mg Tablet (Folic Acid Tablet) ??1 mg, By Mouth, Daily [place] 300 mg Tablet (LITHium Tablet) ??300 mg, By Mouth, Daily at bedtime Multivitamin Therapeutic / Minerals Tablet (Multivit Therapeutic/Minerals Tablet) ??1 tablet, By Mouth, Daily Pyridoxine 50 mg Tablet (Pyridoxine Tablet) ??50 mg, By Mouth, Daily Thiamine 100 mg Tablet (Thiamine Tablet) ??100 mg, By Mouth, 2 times a day CONTINUOUS: (0) PRN: (8) Acetaminophen 325 mg Tablet (Acetaminophen Tablet) ??650 mg, By Mouth, Every 8 hours Al hydroxide/Mg hydroxide/simethicone 200 mg-200 mg-20 mg/5 mL Susp UD (Maalox Plus Liquid) ??30 mL, By Mouth, Every 8 hours ChlorproMAZINE 25 mg/mL Inj (Thorazine Inj) ??50 mg 2 mL, Intramuscular, Every 6 hours ChlorproMAZINE 50 mg Tablet (Thorazine Tablet) ??50 mg, By Mouth, 4 times a day HydrOXYzine Pamoate 25mg Capsule (hydrOXYzine pamoate 25 mg oral capsule) ??50 mg, By Mouth, Every 6 hours Ibuprofen 400 mg Tablet (Ibuprofen Tablet) ??400 mg, By Mouth, Every 8 hours Lorazepam 1 mg Tablet (LORazepam Tablet) ??1 mg, By Mouth, Every 8 hours Melatonin 3 mg Tablet (Melatonin Tablet) ??9 mg, By Mouth, Daily at bedtime ? Results Recent Labs BLOOD COUNT & DIFF WBC 8.3 k/mm3 ()?? 08/30/2023 00:50 RBC 4.72 m/mm3 ()?? 08/30/2023 00:50 Hgb 13.3 Gm/dL (Low)?? 08/30/2023 00:50 Hct 41.3 % ()?? 08/30/2023 00:50 MCV 87.5 femtoliters ()?? 08/30/2023 00:50 MCH 28.2 pg ()?? 08/30/2023 00:50 MCHC 32.2 g/dL (Low)?? 08/30/2023 00:50 Platelet Count 194 k/mm3 ()?? 08/30/2023 00:50 RDW-SD 41.7 femtoliters ()?? 08/30/2023 00:50 MPV 11.0 femtoliters ()?? 08/30/2023 00:50 Nucleated RBC (Automated) 0.0 #/100 WBC'S ()?? 08/30/2023 00:50 Abs. NRBC 0.0 k/mm3 ()?? 08/30/2023 00:50 Abs. Neut 5.7 k/mm3 ()?? 08/30/2023 00:50 Abs. Lymph 1.7 k/mm3 ()?? 08/30/2023 00:50 Abs. Sioux 0.7 k/mm3 ()?? 08/30/2023 00:50 Abs. Eo 0.1 k/mm3 ()?? 08/30/2023 00:50 Abs. Baso 0.1 k/mm3 ()?? 08/30/2023 00:50 Neut % 69.0 % ()?? 08/30/2023 00:50 Lymph % 21.1 % ()?? 08/30/2023 00:50 Sioux % 8.0 % ()?? 08/30/2023 00:50 Eos % 0.7 % ()?? 08/30/2023 00:50 Baso % 0.8 % ()?? 08/30/2023 00:50 Imm Gran 0.4 % ()?? 08/30/2023 00:50 Abs. Imm Gran 0.0 k/mm3 ()?? 08/30/2023 00:50 ?? CHEM GENERAL Sodium 141 mmol/L ()?? 08/30/2023 00:50 Potassium 4.3 mmol/L ()?? 08/30/2023 00:50 Chloride 104 mmol/L ()?? 08/30/2023 00:50 Bicarbonate Level 26 mmol/L ()?? 08/30/2023 00:50 Anion Gap 11 ()?? 08/30/2023 00:50 Glucose Level 75 mg/dL ()?? 08/30/2023 00:50 BUN 15 mg/dL ()?? 08/30/2023 00:50 Creatinine-Blood 0.8 mg/dL ()?? 08/30/2023 00:50 Estimated GFR Creatinine 113 ML/MIN/1.73 M2 ()?? 08/30/2023 00:50 Calcium 8.8 mg/dL ()?? 08/29/2023 06:15 Alkaline Phosphatase 95 units/L ()?? 08/30/2023 00:50 Lipase 184 units/L (High)?? 08/30/2023 00:50 AST (SGOT) 20 units/L ()?? 08/30/2023 00:50 ALT (SGPT) 10 units/L ()?? 08/30/2023 00:50 Bilirubin, Total 0.5 mg/dL ()?? 08/30/2023 00:50 ?? ENDOCRINE/TUMOR MARKER TSH 1.18 uIU/mL ()?? 08/29/2023 06:15 ?? TOXICOLOGY/TDM Ethanol, Serum or Plasma NONE DETECTED mg/dL ()?? 08/30/2023 00:50 [place] Level <0.1 mmol/L (Low)?? 08/30/2023 00:50 Barbiturate Screen, Urine NONE DETECTED ()?? 08/30/2023 00:35 Cannabinoid Screen, Urine POSITIVE (Abnormal)?? 08/30/2023 00:35 Cocaine Metabolite Screen, Urine POSITIVE (Abnormal)?? 08/30/2023 00:35 Benzodiazepine Screen, Urine POSITIVE (Abnormal)?? 08/30/2023 00:35 Amphetamine Screen, Urine NONE DETECTED ()?? 08/30/2023 00:35 Opiate Screen, Urine NONE DETECTED ()?? 08/30/2023 00:35 ?? UA/URINALYSIS Appear/Color, Urine YELLOW ()?? 08/30/2023 00:35 Specific [place], Urine 1.035 (High)?? 08/30/2023 00:35 pH, Urine 5.5 ()?? 08/30/2023 00:35 Albumin, Urine 1+ (Abnormal)?? 08/30/2023 00:35 Glucose, Urine NEGATIVE ()?? 08/30/2023 00:35 Ketones, Urine 1+ (Abnormal)?? 08/30/2023 00:35 Bilirubin, Urine NEGATIVE ()?? 08/30/2023 00:35 Hemoglobin, Urine NEGATIVE ()?? 08/30/2023 00:35 Nitrite, Urine NEGATIVE ()?? 08/30/2023 00:35 Leukocyte, Urine NEGATIVE ()?? 08/30/2023 00:35 Urobilinogen 2 mg/dL (Abnormal)?? 08/30/2023 00:35 WBC's, Urine 3 /HPF ()?? 08/30/2023 00:35 RBC's, Urine 1 /HPF ()?? 08/30/2023 00:35 Bacteria SLIGHT HPF (Abnormal)?? 08/30/2023 00:35 Squamous Epith <1 /HPF ()?? 08/30/2023 00:35 Mucus HEAVY /LPF ()?? 08/30/2023 00:35 Hold Urine Culture Testing available 48 hours from time of collection. ()?? 08/30/2023 00:35 ?? URINE OTHER Est Creatinine Clearance 112.80 mL/min ()?? 08/29/2023 07:07 ?? VIROLOGY COVID-19 by RT-PCR NEGATIVE ()?? 08/30/2023 08:07 ? Abnormal Labs ?? BLOOD COUNT & DIFF ??Abs. Imm Gran ??0.0 k/mm3 () ??08/30/2023 00:50 ??Abs. NRBC ??0.0 k/mm3 () ??08/30/2023 00:50 ??Hgb ??13.3 Gm/dL (Low) ??08/30/2023 00:50 ??Imm Gran ??0.4 % () ??08/30/2023 00:50 ??MCHC ??32.2 g/dL (Low) ??08/30/2023 00:50 ??Nucleated RBC (Automated) ??0.0 #/100 WBC'S () ??08/30/2023 00:50 ??RDW-SD ??41.7 femtoliters () ??08/30/2023 00:50 ? CHEM GENERAL ??Estimated GFR Creatinine ??113 ML/MIN/1.73 M2 () ??08/30/2023 00:50 ??Lipase ??184 units/L (High) ??08/30/2023 00:50 ? TOXICOLOGY/TDM ??Amphetamine Screen, Urine ??NONE DETECTED () ??08/30/2023 00:35 ??Barbiturate Screen, Urine ??NONE DETECTED () ??08/30/2023 00:35 ??Benzodiazepine Screen, Urine ??POSITIVE (Abnormal) ??08/30/2023 00:35 ??Cannabinoid Screen, Urine ??POSITIVE (Abnormal) ??08/30/2023 00:35 ??Cocaine Metabolite Screen, Urine ??POSITIVE (Abnormal) ??08/30/2023 00:35 ??Ethanol, Serum or Plasma ??NONE DETECTED mg/dL () ??08/30/2023 00:50 ??[place] Level ??<0.1 mmol/L (Low) ??08/30/2023 00:50 ??Opiate Screen, Urine ??NONE DETECTED () ??08/30/2023 00:35 ? UA/URINALYSIS ??Albumin, Urine ??1+ (Abnormal) ??08/30/2023 00:35 ??Appear/Color, Urine ??YELLOW () ??08/30/2023 00:35 ??Bacteria ??SLIGHT HPF (Abnormal) ??08/30/2023 00:35 ??Bilirubin, Urine ??NEGATIVE () ??08/30/2023 00:35 ??Glucose, Urine ??NEGATIVE () ??08/30/2023 00:35 ??Hemoglobin, Urine ??NEGATIVE () ??08/30/2023 00:35 ??Hold Urine Culture ??Testing available 48 hours from time of collection. () ??08/30/2023 00:35 ??Ketones, Urine ??1+ (Abnormal) ??08/30/2023 00:35 ??Leukocyte, Urine ??NEGATIVE () ??08/30/2023 00:35 ??Mucus ??HEAVY /LPF () ??08/30/2023 00:35 ??Nitrite, Urine ??NEGATIVE () ??08/30/2023 00:35 ??Specific [place], Urine ??1.035 (High) ??08/30/2023 00:35 ??Urobilinogen ??2 mg/dL (Abnormal) ??08/30/2023 00:35 ? VIROLOGY ??COVID-19 by RT-PCR ??NEGATIVE () ??08/30/2023 08:07 ? Note: Critical results are displayed in red. ? Blood Glucose Trend Glucose Level: 75 mg/dL (08/30/23 00:50:00) ? CBC, CBC w/Diff?? CBC?? Differential?? WBC: 8.3 k/mm3 (00:50) Abs. Neut: 5.7 k/mm3 (00:50) RBC: 4.72 m/mm3 (00:50) Abs. Lymph: 1.7 k/mm3 (00:50) Hct: 41.3 % (00:50) Abs. Sioux: 0.7 k/mm3 (00:50) RDW-SD: 41.7 femtoliters (00:50) Abs. Eo: 0.1 k/mm3 (00:50) Nucleated RBC (Automated): 0 #/100 WBC'S (00:50) Abs. Baso: 0.1 k/mm3 (00:50) Abs. NRBC: 0 k/mm3 (00:50) Neut %: 69 % (00:50) ?? Lymph %: 21.1 % (00:50) ?? Sioux %: 8 % (00:50) ?? Eos %: 0.7 % (00:50) ?? Baso %: 0.8 % (00:50) ?? Imm Gran: 0.4 % (00:50) ?? Abs. Imm Gran: 0 k/mm3 (00:50) ? BMP, Mg, and Phos Anion Gap: 11 (00:50) Bicarbonate Level: 26 mmol/L (00:50) BUN: 15 mg/dL (00:50) Chloride: 104 mmol/L (00:50) Creatinine-Blood: 0.8 mg/dL (00:50) Estimated GFR Creatinine: 113 ML/MIN/1.73 M2 (00:50) Glucose Level: 75 mg/dL (00:50) Potassium: 4.3 mmol/L (00:50) Sodium: 141 mmol/L (00:50) ?? LFT Alkaline Phosphatase: 95 units/L (00:50) ALT (SGPT): 10 units/L (00:50) AST (SGOT): 20 units/L (00:50) Bilirubin, Total: 0.5 mg/dL (00:50) ?? Urinalysis Albumin, Urine: 1+ Abnormal (00:35) Appear/Color, Urine: YELLOW (00:35) Bacteria: SLIGHT Abnormal (00:35) Bilirubin, Urine: NEGATIVE (00:35) Glucose, Urine: NEGATIVE (00:35) Hemoglobin, Urine: NEGATIVE (00:35) Hold Urine Culture: Testing available 48 hours from time of collection. (00:35) Ketones, Urine: 1+ Abnormal (00:35) Leukocyte, Urine: NEGATIVE (00:35) Mucus: HEAVY (00:35) Nitrite, Urine: NEGATIVE (00:35) pH, Urine: 5.5 (00:35) RBC's, Urine: 1 /HPF (00:35) Specific [place], Urine:??1.035??High (00:35) Squamous Epith: <1 (00:35) Urobilinogen: 2 mg/dL Abnormal (00:35) WBC's, Urine: 3 /HPF (00:35) ? Patient Care team information Care Team Personnel Name: Zander Xavier MD Position: [facility] Outreach Member Role: PCP Address: Address: [address] [place] [id number]- Name: Paul Menon RN Position: [facility] RN Member Role: Primary Care Nurse Name: Maryanne Ny Position: [facility] RN Member Role: Primary Care Nurse Name: Melissa Pham RN Position: [facility] AMB Nurse Member Role: Primary Care Nurse Name: Su Lewis RN Position: [facility] RN Member Role: Primary Care Nurse Care Team Related Persons Name: TONY PATEL Address: [place] [address] Name: YULY HE Address: home [address] [place] [address]
--- OUTSIDE RECORDS SUMMARY | 2024-01-03 20:25 | XMS_ITS | Continuity of Care Document ---
Author Organization [facility] ter Address [address] [place] [address]- Care Team Providers Care Health Care Attorney Name Role Phone Kimberly Lockhart MD, Zander Primary Care Phys martian Encounter [facility] Date(s): 08/28/23 - 08/29/[address] [address]- Encounter Diagnosis Cocaine use(Final) - 08/29/23 Discharge Disposition: A-D/C Home Attending Physician: Ludy Somers DO Admitting Physician: Ludy Somers DO Referring Physician: Not on Staff, Referring [...] 0 Refills,Maintenance, 08/05/23 14:50:00 EST, DIS Tablet, [facility] #[id number], Partial fill upon patient request if the [...] Range]: 1 2 3 Height 196 cm (08/29/23 8:58 AM) 196 cm (08/29/23 4:20 AM) 196 cm (08/28/23 11:25 PM) Weight 66.3 kg (08/29/23 8:58 AM) 66.3 kg (08/29/23 4:20 AM) 66.3 kg (08/28/23 11:25 PM) Oxygen Saturation [94-100 %] 99 % (08/29/23 4:20 AM) 99 % (08/29/23 2:56 AM) 100 % (08/29/23 1:06 AM) Pulse Rate [55-90 bpm] 68 bpm (08/29/23 4:20 AM) 62 bpm (08/29/23 2:56 AM) 73 bpm (08/29/23 1:06 AM) Body Mass Index [18.5-24.99 kg/m2] 17.26 kg/m2 *L* (08/29/23 4:20 AM) 17.26 kg/m2 *L* (08/28/23 11:05 PM) Blood Pressure [90-138/55-84 mm Hg] 115/88mm Hg (08/29/23 4:20 AM) 126/69mm Hg (08/29/23 2:56 AM) 115/71mm Hg (08/29/23 1:06 AM) Respiratory Rate [16-30 br/min] 16 br/min (08/29/23 4:20 AM) 17 br/min (08/28/23 11:05 PM) Temperature [96.8-100.4 DegF] 97.3 DegF (08/29/23 4:20 AM) 98.7 DegF (08/29/23 2:56 AM) 97.7 DegF (08/29/23 1:06 AM) Mode of Delivery (Oxygen) Room air (08/29/23 4:20 AM) Room air (08/29/23 2:56 AM) Room air (08/29/23 1:06 AM) Blood pressure sites Arm, right (08/29/23 4:20 AM) Arm, left (08/29/23 2:56 AM) Arm, left (08/29/23 1:06 AM) Temperature Route Oral (08/29/23 4:20 AM) Oral (08/29/23 2:56 AM) Oral (08/29/23 1:06 AM) Dry Weight 66.3 kg (08/29/23 8:58 AM) 66.3 kg (08/29/23 4:20 AM) 66.3 kg (08/28/23 11:25 PM) Weight Obtained Via Standing scale (08/28/23 11:05 PM) Dry Weight Obtained Via Standing scale (08/28/23 11:05 PM) Social History Social History Type Response Smoking Status Never (less than 100 in lifetime) entered on: 08/31/21 Sex Implantable Device List Procedure Provider Procedure Date Device Type Site Repair Hernia Inguinal Laparoscopic Dillan Childs MD 07/19/21 Unknown Pelvis Left Device Identifier Serial Number Lot or Batch Number Manufacturing Date Expiration Date Distinct Identification Code MRI Safety Implantable Status Assigning Authority [id number] Unknown [id number] Unknown 01/27/23 Unknown Unknown Active GS1 Patient Care team information Care Team Personnel Name: Zander Xavier MD Position: [facility] Outreach Member Role: PCP Address: Address: [address] [place] [address] Name: Paul Menon RN Position: [facility] RN Member Role: Primary Care Nurse Name: Maryanne Ny Position: [facility] RN Member Role: Primary Care Nurse Name: Melissa Pham RN Position: [facility] Nurse Member Role: Primary Care Nurse Name: Su Lweis RN Position: [facility] RN Member Role: Primary Care Nurse Care Team Related Persons Name: TONY PATEL Address: [place] [address] Name: YULY HE Address: home [address] [place] [address]
--- OUTSIDE RECORDS SUMMARY | 2024-01-03 20:25 | XMS_ITS | Continuity of Care Document ---
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 Start Date: 10/31/20 Stop Date: 11/30/20 Status: Ordered escitalopram 10 mg oral tablet 1 tablet = 10 mg, By Mouth, Daily, # 30 tablet, 1 Refills, Maintenance, 10/18/20 11:18:00 EDT, Tablet, [facility] #[id number], Partial fill upon patient request if the prescription is for a schedule II opioid drug., 198, cm, 10/18/20 10:14:00 EDT... Start Date: 10/18/20 Status: Ordered lithium 300 mg oral tablet 2 tablet = 600 mg, By Mouth, Daily at bedtime, # 60 tablet, 1 Refills, Maintenance, 10/18/20 11:23:00 EDT, [facility] #[id number], Partial fill upon patient request if the [...] 1 Refills, Maintenance, 10/18/20 11:19:00 EDT, Tablet, [facility] #[id number], Partial fill upon patient request if the prescriptionis for a schedule II opioid drug., 198, melody, ... Start Date: 10/18/20 Status: Ordered multivitamin with minerals Vitamin D with Minerals oral tablet 1 tablet, By Mouth, Daily, # 30 tablet, 1 Refills, Maintenance, 10/31/20 10:35:00 EDT, Capsule, [facility] #[id number], Partial fill upon patient request if the prescription is for a schedule IIopioid drug., 1 tablet By Mouth Daily, 193, cm, ... Start Date: 10/31/20 Status: Ordered olanzapine 5 mg oral tablet 5 mg, 1, tablet, By Mouth, 2 times a day, # 60 tablet, Refills 1, Tot. Refills 1, Maintenance, 10/31/20 10:35:00 EDT, Route to Pharmacy Electronically, [facility] #[id number], Partial fill upon patient request if the [...] 10/18/20 11:21:00 EDT, Route to Pharmacy Electronically, [facility] #[id number], Partial fill upon patient request if the prescription is for a schedul... Start Date: 10/18/20 Status: Ordered Problem List Condition Effective Dates Status Health Status Inform ant Diabetes(Confirmed) Active Hypertension(Confirmed) Active Major depressive disorder(Confirmed) Active PTSD (post-traumatic stress disorder)(Confirmed) Active Tobacco use disorder(Confirmed) Active Vital Signs Most recent to oldest [Reference Range]: 1 2 Oxygen Saturation [94-100 %] 100 % (11/12/20 9:35 AM) 100 % (11/12/20 4:48 AM) Pulse Rate [55-90 bpm] 80 bpm (11/12/20 9:35 AM) 78 bpm (11/12/20 4:48 AM) Blood Pressure [90-138/55-84 mm Hg] 110/ 68mm Hg (11/12/20 9:35 AM) 119/83mm Hg (11/12/20 4:48 AM) Respiratory Rate [16-30 br/min] 20 br/mi n (11/12/20 4:48 AM) Temperature [96.8-100.4 DegF] 97.8 DegF (11/12/20 9:35 AM) 98.7 DegF (11/12/20 4:48 AM) Mode of Delivery (Oxygen) Room air (11/12/20 9:35 AM) Room air (11/12/20 4:48 AM) Blood pressure sites Arm, right (11/12/20 9:35 AM) Arm, right (11/12/20 4:48 AM) Temperature Route Oral (11/12/20 9:35 AM) Oral (11/12/20 4:48 AM) Social History Social History Type Response Smoking Status Current every day brittany simms entered on: 12/03/17 Sex
--- OUTSIDE RECORDS SUMMARY | 2024-01-03 20:25 | XMS_ITS | Continuity of Care Document ---
Author Organization [facility] ter Address [address] [place] [address]- Care Team Providers Care Programmer Name Role Phone Not on Staff, PCP Primary Care Physician Unavail able Encounter [facility] Date(s): 07/27/19 - 07/28/[address] [address]- [facility] Encounter Diagnosis Anxiety and depression(Final) - 07/28/19 Agitation(Final) - 07/28/19 Discharge Disposition: A-D/C Home Attending Physician: Dewayne Graves DO Admitting Physician: Dewayne Graves DO Referring Physician: Not on Staff, Referring [...] 06/16/19 15:19:00 EST, Route to Pharmacy Electronically, [facility] #[id number], 199, cm, 06/16/19 9:58:00 EST, Height, 70.6, kg, 10/05/18 16:57:00 EDT... Start Date: 06/16/19 Status: Ordered CeleXA 10 mg oral tablet 5 mg, 0.5, tablet, By Mouth, Daily, # 15 tablet, Refills 0, Tot. Refills 0, Maintenance, 06/16/19 15:29:00 EST, Route to Pharmacy Electronically, [facility] #[id number], 199, cm, 06/16/19 9:58:00 EST, Height, 70.6, kg, 10/05/18 16:57:00 EDT, Dry... Start Date: 06/16/19 Status: Ordered famotidine 20 mg oral tablet 20 mg, 1, tablet, By Mouth, 2 times a day, # 60 tablet, Refills 0, Tot. Refills 0, Maintenance, 06/16/19 15:20:00 EST, Route to Pharmacy Electronically, [facility] #[id number], 199, cm, :58:00 EST, Height, 70.6, kg, 10/05/18 16:57:00 ED... Start Date: 06/16/19 Status: Ordered gabapentin 400 mg oral capsule 400 mg, 1, capsule, By Mouth, 3 times a day, # 120 capsule, Refills 0, Maintenance, 06/10/19 1:46:00 EST Start Date: 06/10/19 Status: Ordered hydrOXYzine pamoate 50 mg oral capsule = 50 mg, By Mouth, 2 times a day, PRN Anxiety, # 30 capsule, 0 Refills, Acute 06/16/20 9:00:00 EST,06/16/19 15:18:00 EST, Capsule, [facility] #[id number], 199, cm, 06/16/19 9:58:00 EST, Height,70.6, kg, 10/05/18 16:57:00 EDT, Dry Weight Start Date: 06/16/19 Stop Date: 06/16/20 Status: Ordered lithium 300 mg oral tablet 1 tablet = 300 mg, By Mouth, 2 times a day, # 60 tablet, 0 Refills, Maintenance, 06/16/19 15:18:00 EST, Tablet, [facility] #[id number], 199, cm, 06/16/19 9:58:00 EST, Height, 70.6, kg, 10/05/18 16:57:00 EDT, Dry Weight Start Date: 06/16/19 Status: Ordered nicotine 2 mg oral transmucosal gum = 2 mg, Chew, Every hour, PRN Other, Nicotine Withdrawal Symptoms (NOT to exceed 24 pieces per day), # 160 each, 0 Refills, Acute 06/16/20 9:00:00 EST, 06/16/19 15:20:00 EST, Gum, [facility] #[id number], 199, cm, 06/16/19 9:58:00 EST, Height, 70.... Start Date: 06/16/19 Stop Date: 06/16/20 Status: Ordered nicotine 21 mg/24 hr transdermal film, extended release 1 patch, Topically, Daily, PRN 0900, # 30 patch, 1 Refills, Acute 06/16/20 9:00:00 EST, 06/16/19 15:20:00 EST, Patch, [facility] #[id number], 1 patch Topically Daily,PRN:0900, 199, cm, 06/16/19 9:58:00 EST, Height, 70.6, kg, 10/05/18 16:57:00 EDT... Start Date: 06/16/19 Stop Date: 06/16/20 Status: Ordered propranolol 20 mg oral tablet 20 mg, 1, tablet, By Mouth, 2 times a day, # 60 tablet, Refills 0, Tot. Refills 0, Maintenance, 06/16/19 15:19:00 EST, Route to Pharmacy Electronically, [facility] #[id number], 199, cm, 209:58:00 EST, Height, 70.6, kg, 10/05/18 16:57:00 ED... Start Date: 06/16/19 Status: Ordered Vital Signs Most recent to oldest [Reference Range]: 1 2 3 Oxygen Saturation [94-100 %] 100 % (07/28/19 10:24 PM) 98 % (07/28/19 12:25 PM) 100 % (07/27/19 10:33 PM) Pulse Rate [55-90 bpm] 79 bpm (07/28/19 10:24 PM) 52 bpm *L* (07/28/19 10:04 PM) 52 bpm *L* (07/28/19 12:25 PM) Blood Pressure [90-138/55-84 mm Hg] 109/73mm Hg (07/28/19 10:24 PM) 100/58mm Hg (07/28/19 10:04 PM) 100/58mm Hg (07/28/19 12:25 PM) Respiratory Rate [16-30 br/min] 18 br/min (07/28/19 10:24 PM) 16 br/min (07/28/19 10:05 PM) 15 br/min *L* (07/28/19 1:21 PM) Temperature [96.8-100.4 DegF] 97.4 DegF (07/28/19 12:25 PM) 97.8 DegF (07/27/19 5:40 PM) Mode of Delivery (Oxygen) Room air (07/28/19 10:24 PM) Room air (07/28/19 12:25 PM) Room air (07/27/19 10:33 PM) Blood pressure sites Arm, right (07/28/19 10:24 PM) Arm, left (07/28/19 12:25 PM) Arm, left (07/28/19 3:47 AM) Temperature Route Oral (07/28/19 12:25 PM) Oral (07/27/19 5:40 PM) Social History Social History Type Response Smoking Status Current every day brittany simms entered on: 12/03/17 Sex
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
--- OUTSIDE RECORDS SUMMARY | 2024-01-03 20:25 | XMS_ITS | Continuity of Care Document ---
Author Organization [facility] Address [address] [place] [address] ve [address] [place] [address]- Care Team Providers Care Cell Feed Department Supervisor Name Role Phone Kimberly Lockhart MD, Zander Primary Care Phys ician Encounter [facility] [place] Date(s): 10/10/20 - 10/17/[address] [place], [place] [address] Attending Physician: Dillan Childs MD Referring Physician: [...] 2 Refills, Maintenance, 02/11/20 11:03:00 EDT, Tablet, [facility] #[id number], 195, cm, 02/11/20 8:06:00 EDT, Height, 74.84, kg, 02/04/20 16:58:00EDT, Dry Weight Start Date: 02/11/20 Stop Date: 03/24/20 Status: Ordered lithium 600 mg oral capsule = 600 mg, By Mouth, 2 times a day, # 28 capsule, 2 Refills, Maintenance, 02/11/20 11:01:00 EDT, Capsule, [facility] #[id number], 195, cm, 02/11/20 8:06:00 EDT, Height, 74.84, kg, 02/04/20 16:58:00 EDT, Dry Weight Start Date: 02/11/20 Stop Date: 03/24/20 Status: Ordered mirtazapine 15 mg oral tablet 0.5 tablet = 7.5 mg, By Mouth, Daily at bedtime, # 15 tablet, 1 Refills, Maintenance, 02/11/20 11:04:00 EDT, Tablet, [facility] #[id number], 195, cm, 02/11/20 8:06:00 EDT, Height, 74.84, [...] each, 0 Refills, Maintenance, 08/29/20 13:16:00 EDT, [facility] #[id number], Ok to sub for any gallon prep, as directed, 198, cm, 04/05/20 8:30:00 EST, Height,76, kg, 04/05/20 8:30:00 EST, Dry Weight Start Date: 08/29/20 Status: Ordered sucralfate 1 gm oral tablet 1 Gm, 1, tablet, By Mouth, 2 times a day, on an empty stomach, # 180 tablet, Refills 0, Tot. Refills 0, Maintenance, 06/26/20 16:12:00 EST, Route to Pharmacy Electronically, [facility] #[id number], Partial fill upon patient request if the prescri... Start Date: 06/26/20 Status: Ordered Suprep Bowel Prep Kit oral liquid See Instructions, drink 1 bottle around 6pm day before procedure, drink second bottle morning of procedure but complete at least 4 hours prior to procedure., # 1 each, 0 Refills, Maintenance, 08/21/20 9:17:00 EDT, [facility] #[id number], Partial... Start Date: 08/21/20 Status: Ordered ZyPREXA [...] recent to oldest [Reference Range]: 1 Height 198 cm (10/10/20 1:04 PM) Weight 64.4 kg (10/10/20 1:04 PM) Pulse Rate [55-90 bpm] 76 bpm (10/10/20 1:04 PM) Body Mass Index [18.5-24.99] 16.43 *L* (10/10/20 1:04 PM) Blood Pressure [90-138/55-84 mm Hg] 131/ 77mm Hg (10/10/20 1:04 PM) Respiratory Rate [16-30 br/min] 16 br/mi n (10/10/20 1:04 PM) Temperature [96.8-100.4 DegF] 98.9 DegF (10/10/20 1:04 PM) Blood pressure sites Arm, right (10/10/20 1:04 PM) Temperature Route Temporal (10/10/20 1:04 PM) Weight Obtained Via Standing scale (10/10/20 1:04 PM) Social History Social History Type Response Smoking Status Current every day brittany simms entered on: 12/03/17 Sex
--- OUTSIDE RECORDS SUMMARY | 2024-01-03 20:25 | XMS_ITS | Continuity of Care Document ---
Author Organization [facility] ter Address [address] [place] [address]- Care Team Providers Care Small Order Cutter Name Role Phone Kimberly Lockhart MD, Zander Primary Care Phys ician [place] [facility] [place] - 06/26/[address] [address]- Discharge Disposition: A-D/C Home Attending Physician: Ying Silva DO Admitting Physician: Ying Silva DO Referring Physician: Not on Staff, Referring [...] Refuses 1Early/Late Reason: Med Not Available Medications famotidine 10 mg oral tablet 1 tablet = 10 mg, By Mouth, 2 times a day, 1 hour before meals, # 180 tablet, 0 Refills, Maintenance, 06/26/20 16:12:00 EST, Tablet, [facility] #[id number], Partial fill upon patient request if the prescription is for a schedule II opioid drug.,... Start Date: 06/26/20 Status: Ordered Lexapro 20 mg oral tablet 1 tablet = 20 mg, By Mouth, Daily, # 14 tablet, 2 Refills, Maintenance, 02/11/20 11:03:00 EDT, [email or web address] #[id number], 195, cm, 02/11/20 8:06:00 EDT, Height, 74.84, kg, 02/04/20 16:58:00EDT, Dry Weight Start Date: 02/11/20 Stop Date: 03/24/20 Status: Ordered lithium 600 mg oral capsule = 600 mg, By Mouth, 2 times a day, # 28 capsule, 2 Refills, Maintenance, 02/11/20 11:01:00 EDT, Capsule, [facility] #51320, 195, cm, 02/11/20 8:06:00 EDT, Height, 74.84, kg, 02/04/20 16:58:00 EDT, Dry Weight Start Date: 02/11/20 Stop Date: 03/24/20 Status: Ordered mirtazapine 15 mg oral tablet 0.5 tablet = 7.5 mg, By Mouth, Daily at bedtime, # 15 tablet, 1 Refills, Maintenance, 02/11/20 11:04:00 EDT, Tablet, [facility] #90434, 195, cm, 02/11/20 8:06:00 EDT, Height, 74.84, [...] Date: 02/11/20 Stop Date: 03/12/20 Status: Ordered pregabalin 25 mg oral capsule 3 capsule = 75 mg, By Mouth, 3 times a day, # 126 capsule, 1 Refills, Maintenance, 02/11/20 11:02:00 EDT, Capsule, [facility] #[id number], 195, cm, 02/11/20 8:06:00 EDT, Height, 74.84, kg, 02/04/20 16:58:00 EDT, Dry Weight Start Date: 02/11/20 Stop Date: 03/10/20 Status: Ordered sucralfate 1 gm oral tablet 1 Gm, 1, tablet, By Mouth, 2 times a day, on an empty stomach, # 180 tablet, Refills 0, Tot. Refills 0, Maintenance, 06/26/20 16:12:00 EST, Route to Pharmacy Electronically, [facility] #[id number], Partial fill upon patient request if the prescri... Start Date: 06/26/20 Status: Ordered traZODone 50 mg oral tablet 50 mg, 1, tablet, By Mouth, Daily at bedtime, PRN, # 30 tablet, Refills 0, Tot. Refills 0, Maintenance, Insomnia, 02/11/20 11:03:00 EDT, Route to Pharmacy Electronically, [facility] #[id number],195, cm, 02/11/20 8:06:00 EDT, Height, 74.84, kg, 0... Start Date: 02/11/20 Stop Date: 03/12/20 Status: Ordered Zofran 4 mg oral tablet 1 tablet = 4 mg, By Mouth, Every 8 hours, PRN Nausea & Vomiting, # 20 tablet, 0 Refills, Maintenance, 06/26/20 16:12:00 EST, Tablet, [facility][id number], Partial fill upon patient requestif the prescription is for a schedule II opioid drug.,... Start Date: 06/26/20 Status: Ordered ZyPREXA 10 mg oral tablet [...] 3 Oxygen Saturation [94-100 %] 100 % (06/26/20 4:38 PM) 100 % (06/26/20 12:31 PM) 100 % (06/26/20 11:50 AM) Pulse Rate [55-90 bpm] 50 bpm *L* (06/26/20 4:38 PM) 65 bpm (06/26/20 12:31 PM) 87 bpm (06/26/20 11:50 AM) Blood Pressure [90-138/55-84 mm Hg] 120/50mm Hg (06/26/20 4:38 PM) 124/67mm Hg (06/26/20 12:31 PM) Respiratory Rate [16-30 br/min] 20 br/min (06/26/20 4:38 PM) 19 br/min (06/26/20 12:31 PM) Temperature [96.8-100.4 DegF] 98.0 DegF (06/26/20 4:38 PM) 98 DegF (06/26/20 12:31 PM) Mode of Delivery (Oxygen) Room air (06/26/20 4:38 PM) Room air (06/26/20 12:31 PM) Room air (06/26/20 11:50 AM) Blood pressure sites Arm, left (06/26/20 4:38 PM) Arm, left (06/26/20 12:31 PM) Temperature Route Oral (06/26/20 12:31 PM) Social History Social History Type Response Smoking Status Current every day brittany simms entered on: 12/03/17 Sex
--- OUTSIDE RECORDS SUMMARY | 2024-01-03 20:25 | XMS_ITS | Continuity of Care Document ---
Author Organization [facility] al Address [address] [place] [address]- Care Team Providers Care Noise Abatement Engineer Name Role Phone Kimberly Lockhart MD, Zander Primary Care Phys ician Encounter [facility] Date(s): 06/17/21 - 06/17/[address] [address]- Discharge Disposition: A-D/C Home Attending Physician: Gurinder PAINTING, Milo Wood Admitting Physician: Milo Fairchild MD Referring Physician: Not on Staff, Referring [...] tablet, 1 Refills, Maintenance, 10/18/20 11:23:00 EDT, [facility] #[id number], Partial fill upon patient request if the [...] 1 Refills, Maintenance, 10/18/20 11:19:00 EDT, Tablet, [facility] #[id number], Partial fill upon patient request if the prescriptionis for a schedule II opioid drug., 198, cm, ... Start Date: 10/18/20 Status: Ordered multivitamin with minerals Vitamin D with Minerals oral tablet 1 tablet, By Mouth, Daily, # 30 tablet, 1 Refills, Maintenance, 10/31/20 10:35:00 EDT, Capsule, [facility] #[id number], Partial fill upon patient request if the prescription is for a schedule IIopioid drug., 1 tablet By Mouth Daily, 193, cm, ... Start Date: 10/31/20 Status: Ordered nicotine 14 mg/24 hr transdermal film, extended release 1 patch, Topically, Daily, # 30 patch, 1 Refills, Maintenance, 02/09/21 10:23:00 EDT, Patch, [facility] #[id number], Partial fill upon patient request if the prescription is for a schedule II opioid drug., 1 patch Topically Daily, 196, cm, ... Start Date: 02/09/21 Status: Ordered nicotine 2 mg oral transmucosal gum = 2 mg, Chew, Every 15 minutes, PRN Other, Cigarette craving. Not to exceed 30 doses in 24 hours, #160 each, 1 Refills, Maintenance, 02/09/21 10:22:00 EDT, Gum, [facility] #[id number], Partial fill upon patient request if the [...] 0 Refills, Maintenance, 04/23/21 13:22:00 EST, Tablet, [facility] #[id number], Partial fill upon patient requestif the prescription [...] opioid drug. Start Date: 02/06/21 Status: Ordered Tessalon Perles 100 mg oral capsule 1 capsule = 100 mg, By Mouth, 3 times a day, PRN Cough, for 7 days, # 21 capsule, 0 Refills, Acute 06/24/21 16:17:00 EST, 06/17/21 16:17:00 EST, Capsule, [facility] #[id number], Partial fill upon patient request if the prescription is for a sched... Start Date: 06/17/21 Stop Date: 06/24/21 Status: Ordered Problem List Condition Effective Dates Status Health Status Inform ant Diabetes(Confirmed) Active Hypertension(Confirmed) Active Major depressive disorder(Confirmed) Active PTSD (post-traumatic stress disorder)(Confirmed) Active Tobacco use disorder(Confirmed) Active Vital Signs Most recent to oldest [Reference Range]: 1 2 Height 193 cm (06/17/21 2:04 PM) 193 cm (06/17/21 2:03 PM) Weight 87.3 kg (06/17/21 2:04 PM) 87.3 kg (06/17/21 2:03 PM) Oxygen Saturation [94-100 %] 98 % (06/17/21 2:03 PM) Pulse Rate [55-90 bpm] 98 bpm *H* (06/17/21 2:03 PM) Body Mass Index [18.5-24.99] 23.44 (06/17/21 2:03 PM) Blood Pressure [90-138/55-84 mm Hg] 117/ 70mm Hg (06/17/21 2:03 PM) Respiratory Rate [16-30 br/min] 18 br/mi n (06/17/21 2:03 PM) Temperature [96.8-100.4 DegF] 99.9 DegF (06/17/21 2:03 PM) Mode of Delivery (Oxygen) Room air (06/17/21 2:03 PM) Blood pressure sites Arm, left (06/17/21 2:03 PM) Temperature Route Oral (06/17/21 2:03 PM) Dry Weight 87.3 kg (06/17/21 2:04 PM) 87.3 kg (06/17/21 2:03 PM) Dry Weight Obtained Via Standing scale (06/17/21 2:03 PM) Social History Social History Type Response Smoking Status Current every day brittany simms entered on: 12/03/17 Sex
--- OUTSIDE RECORDS SUMMARY | 2024-01-03 20:25 | XMS_ITS | Continuity of Care Document ---
Author Organization [facility] ter Address [address] [place] [address]- Care Team Providers Care Roll Panner Name Role Phone Kimberly Lockhart MD, Zander Primary Care Phys [facility] Encounter [facility] [place] [place] Date(s): 04/05/20 - 04/05/[address] [address]- [facility] Discharge Disposition: A-D/C Home Attending Physician: Durga Newell MD Admitting Physician: Durga Newell MD Referring Physician: Not on Staff, Referring [...] 2 Refills, Maintenance, 02/11/20 11:03:00 EDT, Tablet, [facility] #[id number], 195, cm, 02/11/20 8:06:00 EDT, Height, 74.84, kg, 02/04/20 16:58:00EDT, Dry Weight Start Date: 02/11/20 Stop Date: 03/24/20 Status: Ordered lithium 600 mg oral capsule = 600 mg, By Mouth, 2 times a day, # 28 capsule, 2 Refills, Maintenance, 02/11/20 11:01:00 EDT, Capsule, [facility] #[id number], 195, cm, 02/11/20 8:06:00 EDT, Height, 74.84, kg, 02/04/20 16:58:00 EDT, Dry Weight Start Date: 02/11/20 Stop Date: 03/24/20 Status: Ordered mirtazapine 15 mg oral tablet 0.5 tablet = 7.5 mg, By Mouth, Daily at bedtime, # 15 tablet, 1 Refills, Maintenance, 02/11/20 11:04:00 EDT, Tablet, [facility] #[id number], 195, cm, 02/11/20 8:06:00 EDT, Height, 74.84, [...] 1 Refills, Maintenance, 02/11/20 11:02:00 EDT, Capsule, [facility] #[id number], 195, cm, 02/11/20 8:06:00 EDT, Height, 74.84, kg, 02/04/20 16:58:00 EDT, Dry Weight Start Date: 02/11/20 Stop Date: 03/10/20 Status: Ordered traZODone 50 mg oral tablet 50 mg, 1, tablet, By Mouth, Daily at bedtime, PRN, # 30 tablet, Refills 0, Tot. Refills 0, Maintenance, Insomnia, 02/11/20 11:03:00 EDT, Route to Pharmacy Electronically, [facility] #[id number],195, cm, 02/11/20 8:06:00 EDT, Height, 74.84, kg, 0... Start Date: 02/11/20 Stop Date: 03/12/20 Status: Ordered ZyPREXA 10 mg oral tablet [...] Exam Date Time Procedure Performing Provider Status 04/05/20 8:35 AM Chest Portable Maryanne Maldonado; Auth (Verified) Notes: (Chest Portable) Reason For Exam: Cough RESULT: Chest Portable Chest Portable performed upright at 8:26 AM Hx of Present Illness: c o decreased appetite - chills - cough - abd pain - n v d; Reason: Cough; Clinical Question(s): Pneumonia. COMPARISON: Multiple prior chest x-rays, the most recent of which is dated 02/07/2020. FINDINGS: LINES AND TUBES: None. LUNGS AND PLEURA: Emphysematous changes are again seen in the upper lungs, right greater than left. No focal infiltrate or evidence for effusion. No pneumothorax. HEART, MEDIASTINUM AND FREIDA: Heart is normal in size. Normal mediastinal and hilar contour. BONES AND SOFT TISSUES: No acute abnormality. IMPRESSION: Stable appearance of the chest with emphysematous changes in the right greater than left upper lungand no acute pulmonary process. WSN: [id number] Ordering Physician: Jose Kwan Dictated By: Margot Casper MD Dictated Date/Time: 04/05/20 8:46 am Reviewed By: Margot Casper MD Signed By: Margot Casper MD Signed Date/Time: 04/05/20 8:46 am Transcribed By: KENYETTA Transcribed Date/Time: 04/05/20 8:44 am Vital Signs Most recent to oldest [Reference Range]: 1 2 3 Height 198 cm (04/05/20 8:29 AM) Weight 76 kg (04/05/20 8:29 AM) Oxygen Saturation [94-100 %] 97 % (04/05/20 1:00 PM) 99 % (04/05/20 10:00 AM) 98 % (04/05/20 8:23 AM) Pulse Rate [55-90 bpm] 53 bpm *L* (04/05/20 1:00 PM) 55 bpm (04/05/20 10:00 AM) 65 bpm (04/05/20 8:23 AM) Blood Pressure [90-138/55-84 mm Hg] 104/66mm Hg (04/05/20 1:00 PM) 113/72mm Hg (04/05/20 10:00 AM) 105/54mm Hg (04/05/20 8:23 AM) Respiratory Rate [16-30 br/min] 15 br/min *L* (04/05/20 1:00 PM) 12 br/min *L* (04/05/20 10:00 AM) 20 br/min (04/05/20 8:23 AM) Temperature [96.8-100.4 DegF] 97.6 DegF (04/05/20 8:23 AM) Mode of Delivery (Oxygen) Room air (04/05/20 1:00 PM) Room air (04/05/20 10:00 AM) Room air (04/05/20 8:23 AM) Blood pressure sites Arm, left (04/05/20 1:00 PM) Arm, left (04/05/20 10:00 AM) Arm, right (04/05/20 8:23 AM) Temperature Route Oral (04/05/20 8:23 AM) Dry Weight 76 kg (04/05/20 8:29 AM) Weight Obtained Via Patient/family state d (04/05/20 8:29 AM) Dry Weight Obtained Via Patient/family s tated (04/05/20 8:29 AM) Social History Social History Type Response Smoking Status Current every day brittany simms entered on: 12/03/17 Sex
--- OUTSIDE RECORDS SUMMARY | 2024-01-03 20:25 | XMS_ITS | Continuity of Care Document ---
Author Organization [facility] ter Address [address] [place] [address]- Care Team Providers Care Conventional Machinist Name Role Phone Kimberly Lockhart MD, Zander Primary Care Phys ician Encounter [facility] [place] Date(s): 07/11/20 - 07/12/[address] [address]- Discharge Disposition: A-D/C Home Attending Physician: Theo PAINTING, Iman Cameron Admitting Physician: Iman Venegas MD Referring Physician: Not on Staff, Referring [...] 0 Refills, Maintenance, 06/26/20 16:12:00 EST, Tablet, [facility] #[id number], Partial fill upon patient request if the prescription is for a schedule II opioid drug.,... Start Date: 06/26/20 Status: Ordered Lexapro 20 mg oral tablet 1 tablet = 20 mg, By Mouth, Daily, # 14 tablet, 2 Refills, Maintenance, 02/11/20 11:03:00 EDT, [id number], 195, cm, 02/11/20 8:06:00 EDT, Height, 74.84, kg, 02/04/20 16:58:00EDT, Dry Weight Start Date: 02/11/20 Stop Date: 03/24/20 Status: Ordered lithium 600 mg oral capsule = 600 mg, By Mouth, 2 times a day, # 28 capsule, 2 Refills, Maintenance, 02/11/20 11:01:00 EDT, Capsule, [facility] #[id number], 195, cm, 02/11/20 8:06:00 EDT, Height, 74.84, kg, 02/04/20 16:58:00 EDT, Dry Weight Start Date: 02/11/20 Stop Date: 03/24/20 Status: Ordered mirtazapine 15 mg oral tablet 0.5 tablet = 7.5 mg, By Mouth, Daily at bedtime, # 15 tablet, 1 Refills, Maintenance, 02/11/20 11:04:00 EDT, Tablet, [facility] #[id number], 195, cm, 02/11/20 8:06:00 EDT, Height, 74.84, [...] 1 Refills, Maintenance, 02/11/20 11:02:00 EDT, Capsule, [facility] #[id number], 195, cm, 02/11/20 8:06:00 EDT, Height, 74.84, kg, 02/04/20 16:58:00 EDT, Dry Weight Start Date: 02/11/20 Stop Date: 03/10/20 Status: Ordered sucralfate 1 gm oral tablet 1 Gm, 1, tablet, By Mouth, 2 times a day, on an empty stomach, # 180 tablet, Refills 0, Tot. Refills 0, Maintenance, 06/26/20 16:12:00 EST, Route to Pharmacy Electronically, [facility] #[id number], Partial fill upon patient request if the prescri... Start Date: 06/26/20 Status: Ordered traZODone 50 mg oral tablet 50 mg, 1, tablet, By Mouth, Daily at bedtime, PRN, # 30 tablet, Refills 0, Tot. Refills 0, Maintenance, Insomnia, 02/11/20 11:03:00 EDT, Route to Pharmacy Electronically, [facility] #[id number],195, cm, 02/11/20 8:06:00 EDT, Height, 74.84, kg, 0... Start Date: 02/11/20 Stop Date: 03/12/20 Status: Ordered Zofran 4 mg oral tablet 1 tablet = 4 mg, By Mouth, Every 8 hours, PRN Nausea & Vomiting, # 20 tablet, 0 Refills, Maintenance, 06/26/20 16:12:00 EST, Tablet, [facility] #[id number], Partial fill upon patient requestif the prescription [...] 3 Oxygen Saturation [94-100 %] 100 % (07/12/20 11:20 AM) 100 % (07/12/20 6:13 AM) 95 % (07/11/20 10:46 PM) Pulse Rate [55-90 bpm] 60 bpm (07/12/20 11:20 AM) 58 bpm (07/12/20 6:13 AM) 64 bpm (07/11/20 10:46 PM) Blood Pressure [90-138/55-84 mm Hg] 120/62mm Hg (07/12/20 11:20 AM) 113/65mm Hg (07/12/20 6:13 AM) 122/81mm Hg (07/11/20 10:46 PM) Respiratory Rate [16-30 br/min] 18 br/min (07/12/20 11:20 AM) 18 br/min (07/12/20 6:13 AM) 16 br/min (07/11/20 10:46 PM) Temperature [96.8-100.4 DegF] 98.3 DegF (07/12/20 6:13 AM) 97.5 DegF (07/11/20 10:46 PM) Mode of Delivery (Oxygen) Room air (07/12/20 11:20 AM) Room air (07/12/20 6:13 AM) Room air (07/11/20 10:46 PM) Blood pressure sites Arm, left (07/12/20 6:13 AM) Arm, right (07/11/20 10:46 PM) Temperature Route Oral (07/12/20 6:13 AM) Oral (07/11/20 10:46 PM) Social History Social History Type Response Smoking Status Current every day brittany simms entered on: 12/03/17 Sex
--- OUTSIDE RECORDS SUMMARY | 2024-01-03 20:25 | XMS_ITS | Continuity of Care Document ---
Author Organization [facility] ter Address [address] [place] [address]- Care Team Providers Care Property Clerk Name Role Phone Kimberly Lockhart MD, Zander Primary Care Phys ician [place] [facility] [place](s): 09/09/23 - 09/09/23 [facility] [address] [place] [id number]- Encounter Diagnosis Acute depression(Final) - 09/09/23 Chronic post-traumatic stress disorder (PTSD)(Final) - 09/09/23 Discharge Disposition: Transfer to [facility] Facility Attending Physician: Cj Burnett MD Admitting Physician: Cj Burnett MD Referring Physician: Not on Staff, Referring MD Allergies, Adverse Reactions, Alerts Substance Reaction Severity Status SEROquel 1 disoriented and sleepy Activ e Avocado full body rash Active penicillin childhood allergy-unknown Ac tive Haldol skin crawling Active 1patient states he is allergic and had a reaction in the past Immunizations Given and Recorded Vaccine Date Status Refusal Reason tetanus/diphtheria/pertussis, acel(Tdap) 08/31/23 Given pneumococcal 23-valent vaccine 1 03/20/18 Given influenza virus vaccine, inactivated 03/20/18 Give n 1Early/Late Reason: Med Not Available Medications escitalopram 10 mg oral tablet 1 tablet = 10 mg, By Mouth, Daily, for 30 days, TAKE 1 TABLET BY MOUTH EVERY DAY, Physician Stop 10/09/23 7:45:00 EDT Start Date: 09/09/23 Stop Date: 10/09/23 Status: Ordered gabapentin 400 mg oral capsule TAKE 2 CAPSULES BY MOUTH THREE TIMES DAILY Start Date: 07/07/23 Status: Ordered hydroCHLOROthiazide 12.5 mg oral capsule 1 capsule = 12.5 mg, By Mouth, Daily, # 30 capsule, 0 Refills, Maintenance, 09/09/23 7:44:00 EDT, Capsule, Partial fill upon patient request if the prescription is for a schedule II opioid drug. Start Date: 09/09/23 Status: Ordered hydrOXYzine pamoate 50 mg oral capsule 1 capsule = 50 mg, By Mouth, 3 times a day, PRN as needed for anxiety, TAKE 1 CAPSULE BY MOUTH THREE TIMES DAILY NEEDED FOR ANXIETY Start Date: 09/09/23 Status: Ordered lithium 300 mg oral capsule 1 capsule = 300 mg, By Mouth, 3 times a day, for 30 days, TAKE 1 CAPSULE BY MOUTH THREE TIMES DAILYFOR MOOD, Physician Stop 10/09/23 7:45:00 EDT Start Date: 09/09/23 Stop Date: 10/09/23 Status: Ordered mirtazapine 15 mg oral tablet 1/2 tablet, By Mouth, Daily at bedtime, for 30 days, TAKE 1/2 TABLET BY MOUTH AT BEDTIME, PhysicianStop 10/09/23 7:45:00 EDT Start Date: 09/09/23 Stop Date: 10/09/23 Status: Ordered ondansetron 4 mg oral tablet, disintegrating 1 tablet = 4 mg, By Mouth, Every 8 hours, PRN as needed for nausea/vomiting, # 8 tablet, 0 Refills,Maintenance, 08/05/23 14:50:00 EST, DIS Tablet, [facility] #[id number], Partial fill upon patient request if the [...] 3 Oxygen Saturation [94-100 %] 99 % (09/09/23 9:16 AM) 98 % (09/09/23 3:32 AM) Pulse Rate [55-90 bpm] 66 bpm (09/09/23 9:19 AM) 66 bpm (09/09/23 9:16 AM) 76 bpm (09/09/23 3:32 AM) Blood Pressure [90-138/55-84 mm Hg] 100/61mm Hg (09/09/23 9:19 AM) 100/61mm Hg (09/09/23 9:16 AM) 112/74mm Hg (09/09/23 3:32 AM) Respiratory Rate [16-30 br/min] 18 br/min (09/09/23 9:19 AM) 8 br/min *L* (09/09/23 9:16 AM) 18 br/min (09/09/23 3:32 AM) Temperature [96.8-100.4 DegF] 98.3 DegF (09/09/23 9:16 AM) 98.2 DegF (09/09/23 3:32 AM) Mode of Delivery (Oxygen) Room air (09/09/23 9:16 AM) Temperature Route Oral (09/09/23 9:16 AM) Oral (09/09/23 3:32 AM) Social History Social History Type Response Smoking Status Never (less than 100 in lifetime) entered on: 08/31/21 Sex Implantable Device List Procedure Provider Procedure Date Device Type Site Repair Hernia Inguinal Laparoscopic Dillan Childs MD 07/19/21 Unknown Pelvis Left Device Identifier Serial Number Lot or Batch Number Manufacturing Date Expiration Date Distinct Identification Code MRI Safety Implantable Status Assigning Authority [id number] Unknown [id number] Unknown 01/27/23 Unknown Unknown Active GS1 Hospital Progress note * Event Display: Progress Note Hospital Authored Date: Patient Care team information Care Team Personnel Name: Zander Xavier MD Position: [facility] Outreach Member Role: PCP Address: Address: [address] [place] [address]- Name: Paul Menon RN Position: [facility] RN Member Role: Primary Care Nurse Name: Maryanne Ny Position: [facility] RN Member Role: Primary Care Nurse Name: Melissa Pham RN Position: [facility] REYES Nurse Member Role: Primary Care Nurse Name: Su Lewis RN Position: [facility] RN Member Role: Primary Care Nurse Care Team Related Persons Name: TONY PATEL Address: [place] [address] Name: YULY HE Address: home [address] [place] [address]
--- OUTSIDE RECORDS SUMMARY | 2024-01-03 20:25 | XMS_ITS | Continuity of Care Document ---
Author Organization [facility] ter Address [address] [place] [address]- Care Team Providers Care Control Officer Manager Name Role Phone Kimberly Lockhart MD, Zander Primary Care Phys ician En[place] [facility] [place] Date(s): 08/31/21 - 08/31/21 [facility] [address] [place] [phone]- Encounter Diagnosis Acute vomiting(Final) - 08/31/21 Chronic pancreatitis(Final) - 08/31/21 Discharge Disposition: A-D/C Home Attending Physician: Ying Melednrez MD Admitting Physician: Ying Melendrez MD Referring Physician: Not on Staff, Referring MD Allergies, Adverse Reactions, Alerts Substance Reaction Severity Status Avocado full body rash Active penicillin childhood [...] 08/31/21 15:55:00 EDT, Route to Pharmacy Electronically, [facility] #[id number], Partial fill upon patient request if [...] opioid drug. Start Date: 07/05/21 Status: Ordered ibuprofen 600 mg oral tablet 600 mg, 1, tablet, By Mouth, Every 6 hours, # 40 tablet, Refills 0, Tot. Refills 0, Acute 09/01/21 15:55:00 EDT, 08/31/21 15:55:00 EDT, Route to Pharmacy Electronically, [facility]/pharmacy #[id number], Partial fill upon patient request if the prescription is for... Start Date: 08/31/21 Stop Date: 09/01/21 Status: Ordered lithium 300 mg oral tablet [...] 1 Refills, Maintenance, 10/18/20 11:19:00 EDT, Tablet, [facility] #[id number], Partial fill upon patient request if the prescriptionis for a schedule II opioid drug., 198, cm, ... Start Date: 10/18/20 Status: Ordered MorPHINE Inj 4 mg, Injection, IV Push Slowly, Every 3 hours for 7 days, PRN for Pain , Moderate, Routine, 08/31/21 14:13:00 EDT, Stop date 09/07/21 14:12:00 EDT Start Date: 08/31/21 Stop Date: 09/01/21 Status: Discontinued olanzapine 2.5 mg oral tablet 2.5 mg, [...] opioid drug. Start Date: 02/06/21 Status: Ordered Zofran 8 mg oral tablet 1 tablet = 8 mg, By Mouth, Every 8 hours, PRN Nausea & Vomiting, # 10 tablet, 0 Refills, Acute 09/01/21 15:28:00 EDT, 08/31/21 15:24:00 EDT, Tablet, [facility] #[id number], Partial fill upon patient request if the prescription is for a schedule II opioid... Start Date: 08/31/21 Stop Date: 09/01/21 Status: Ordered Problem List Condition Effective Dates Status Health Status Inform ant Diabetes(Confirmed) Active Hypertension(Confirmed) Active Major depressive disorder(Confirmed) Active PTSD (post-traumatic stress disorder)(Confirmed) Active Tobacco use disorder(Confirmed) Active Vital Signs Most recent to oldest [Reference Range]: 1 2 3 Height 195 cm (08/31/21 4:41 PM) 195 cm (08/31/21 3:39 PM) 195 cm (08/31/21 9:58 AM) Weight 90 kg (08/31/21 4:41 PM) 90 kg (08/31/21 9:58 AM) Oxygen Saturation [94-100 %] 98 % (08/31/21 4:41 PM) 96 % (08/31/21 3:39 PM) 100 % (08/31/21 12:58 PM) Pulse Rate [55-90 bpm] 74 bpm (08/31/21 4:41 PM) 78 bpm (08/31/21 3:39 PM) 86 bpm (08/31/21 12:58 PM) Body Mass Index [18.5-24.99] 23.67 (08/31/21 4:41 PM) Blood Pressure [90-138/55-84 mm Hg] 133/71mm Hg (08/31/21 4:41 PM) 127/74mm Hg (08/31/21 3:39 PM) 137/75mm Hg (08/31/21 12:58 PM) Respiratory Rate [16-30 br/min] 16 br/min (08/31/21 4:41 PM) 20 br/min (08/31/21 3:39 PM) 16 br/min (08/31/21 2:11 PM) Temperature [96.8-100.4 DegF] 98.2 DegF (08/31/21 4:41 PM) 98.6 DegF (08/31/21 12:58 PM) 98.3 DegF (08/31/21 10:40 AM) Liters per Minute 0 L/min (08/31/21 3:39 PM) 0 L/min (08/31/21 9:06 AM) Mode of Delivery (Oxygen) Room air (08/31/21 4:41 PM) Room air (08/31/21 3:39 PM) Room air (08/31/21 12:58 PM) Blood pressure sites Arm, right (08/31/21 3:39 PM) Arm, left (08/31/21 12:58 PM) Arm, left (08/31/21 10:40 AM) Temperature Route Oral (08/31/21 4:41 PM) Oral (08/31/21 12:58 PM) Oral (08/31/21 10:40 AM) Dry Weight 90 kg (08/31/21 4:41 PM) 90 kg (08/31/21 9:58 AM) Social History Social History Type Response Smoking Status Never (less than 100 in lifetime) entered on: 08/31/21 Sex Medical Equipment Implanted Date:07/19/21Target Site:Pelvis Left Description Quantity MRI Company Model MESH VENTRALIGHT ECHO ELLIPS 4 - BARD ([id number]) 1 Bard Unknown QUYEN:{01}[id number] Assigning Author ity:FDA
--- OUTSIDE RECORDS SUMMARY | 2024-01-03 20:25 | XMS_ITS | Continuity of Care Document ---
Author Organization [facility] al Address [address] [place] [address]- Care Team Providers Care Actuarial Mathematician Name Role Phone Kimberly Lockhart MD, Zander Primary Care Phys ician Encounter [facility] Date(s): 11/24/23 - 11/25/[address] [address]- Discharge Disposition: A-D/C Home Attending Physician: Aj PAINTING, Delphine Braun Admitting Physician: Delphine Rocha MD Referring Physician: Not on Staff, Referring MD Allergies, Adverse Reactions, Alerts Substance Reaction Severity Status penicillin childhood allergy-unknown Ac tive Haldol skin crawling Active Avocado full body rash Active SEROquel 1 disoriented and sleepy Activ e 1patient states he is allergic and had a reaction in the past Immunizations Given and Recorded Vaccine Date Status Refusal Reason tetanus/diphtheria/pertussis, acel(Tdap) 08/31/23 Given pneumococcal 23-valent vaccine 1 03/20/18 Given influenza virus vaccine, inactivated 03/20/18 Give n 1Early/Late Reason: Med Not Available Medications ARIPiprazole 5 mg oral tablet TAKE 1 TABLET BY MOUTH DAILY Start Date: 09/24/23 Status: Ordered Carafate 1 gm oral tablet 1 Gm, 1, tablet, By Mouth, 4 times a day, # 120 tablet, Refills 0, Tot. Refills 0, Maintenance, 11/25/23 4:46:00 EDT, Route to Pharmacy Electronically, [facility]/pharmacy #[id number], Partial fill upon patient request if the prescription is for a schedule II opio... Start Date: 11/25/23 Status: Ordered CHLORPROMAZINE 100MG TABLETS CHLORPROMAZINE 100MG TABLETS, 0 Refills, Maintenance, 09/24/23 6:15:00 EDT Start Date: 09/24/23 Status: Ordered gabapentin 400 mg oral capsule TAKE 2 CAPSULES BY MOUTH THREE TIMES DAILY Start Date: 07/07/23 Status: Ordered hydroCHLOROthiazide 12.5 mg oral capsule 1 capsule = 12.5 mg, By Mouth, Daily, # 30 capsule, 0 Refills, Maintenance, 09/09/23 7:44:00 EDT, Capsule, Partial fill upon patient request if the prescription is for a schedule II opioid drug. Start Date: 09/09/23 Status: Ordered hydrochlorothiazide 12.5 mg oral tablet 1 tablet = 12.5 mg, By Mouth, Daily, # 30 tablet, 0 Refills, Maintenance, 09/24/23 6:16:00 EDT, Tablet, Partial fill upon patient request if the prescription is for a schedule II opioid drug. Start Date: 09/24/23 Status: Ordered hydrOXYzine pamoate 50 mg oral capsule 1 capsule = 50 mg, By Mouth, 3 times a day, PRN as needed for anxiety, TAKE 1 CAPSULE BY MOUTH THREE TIMES DAILY NEEDED FOR ANXIETY Start Date: 09/09/23 Status: Ordered mirtazapine 15 mg oral tablet 1 tablet = 15 mg, By Mouth, Daily at bedtime, # 30 tablet, 0 Refills, Maintenance, 09/24/23 6:16:00EDT, Tablet, Partial fill upon patient request if the prescription is for a schedule II opioid drug. Start Date: 09/24/23 Status: Ordered omeprazole 20 mg oral enteric coated capsule 1 capsule = 20 mg, By Mouth, Daily, # 30 capsule, 0 Refills, Maintenance, 09/24/23 6:16:00 EDT, EC Capsule, Partial fill upon patient request if the prescription is for a schedule II opioid drug. Start Date: 09/24/23 Status: Ordered ondansetron 4 mg oral tablet, disintegrating 1 tablet = 4 mg, By Mouth, Every 8 hours, PRN as needed for nausea/vomiting, # 8 tablet, 0 Refills,Maintenance, 08/05/23 14:50:00 EST, DIS Tablet, [id number], Partial fill upon patient request if the prescription is for a schedule II... Start Date: 08/05/23 Stop Date: 08/08/23 Status: Ordered ondansetron 4 mg oral tablet, disintegrating 1 tablet = 4 mg, By Mouth, Every 8 hours, PRN Nausea & Vomiting, # 15 tablet, 0 Refills, Acute 11/30/23 4:00:00 EDT, 11/25/23 4:46:00 EDT, Tablet, [facility]/pharmacy #[id number], Partial fill upon patient request if the prescription is for a schedule II opioid . Start Date: 11/25/23 Stop Date: 11/30/23 Status: Ordered topiramate 25 mg oral tablet TAKE 1 TABLET BY MOUTH TWICE DAILY Start Date: 07/07/23 Status: Ordered Problem List Condition Confirmation Course Effective Dates Status Health St atus Informant Diabetes Confirmed Active Hypertension Confirmed Active Major depressive disorder Confirmed Active PTSD (post-traumatic stress disorder) Confirmed Active Tobacco use disorder Confirmed Active Vital Signs Most recent to oldest [Reference Range]: 1 2 3 Height 198 cm (11/25/23 4:59 AM) 198 cm (11/25/23 2:41 AM) 198 cm (11/24/23 10:54 PM) Weight 75.3 kg (11/25/23 4:59 AM) 75.3 kg (11/25/23 2:41 AM) 75.3 kg (11/24/23 10:54 PM) Oxygen Saturation [94-100 %] 100 % (11/25/23 4:59 AM) 98 % (11/25/23 2:41 AM) 100 % (11/24/23 10:54 PM) Pulse Rate [55-90 bpm] 59 bpm (11/25/23 4:59 AM) 52 bpm *L* (11/25/23 2:41 AM) 64 bpm (11/24/23 10:54 PM) Body Mass Index [18.5-24.99 kg/m2] 19.21 kg/m2 (11/25/23 4:59 AM) 19.21 kg/m2 (11/25/23 2:41 AM) Blood Pressure [90-138/55-84 mm Hg] 117/82mm Hg (11/25/23 4:59 AM) 125/83mm Hg (11/25/23 2:41 AM) 133/96mm Hg (11/24/23 10:54 PM) Respiratory Rate [16-30 br/min] 18 br/min (11/25/23 4:59 AM) 16 br/min (11/25/23 2:41 AM) 16 br/min (11/24/23 10:54 PM) Temperature [96.8-100.4 DegF] 97.5 DegF (11/25/23 4:59 AM) 97.6 DegF (11/24/23 10:54 PM) Liters per Minute 0 L/min (11/25/23 4:59 AM) Mode of Delivery (Oxygen) Room air (11/25/23 4:59 AM) Room air (11/25/23 2:41 AM) Room air (11/24/23 10:54 PM) Blood pressure sites Arm, right (11/25/23 4:59 AM) Arm, left (11/24/23 10:54 PM) Temperature Route Temporal (11/25/23 4:59 AM) Temporal (11/24/23 10:54 PM) Dry Weight 75.3 kg (11/25/23 4:59 AM) 75.3 kg (11/25/23 2:41 AM) 75.3 kg (11/24/23 10:54 PM) Weight Obtained Via Standing scale (11/24/23 10:54 PM) Dry Weight Obtained Via Standing scale (11/24/23 10:54 PM) Social History Social History Type Response Smoking Status Former smoker, quit more than 30 days ago entered on: 11/24/23 Sex Implantable Device List Procedure Provider Procedure Date Device Type Site Repair Hernia Inguinal Laparoscopic Dillan Childs MD 07/19/21 Unknown Pelvis Left Device Identifier Serial Number Lot or Batch Number Manufacturing Date Expiration Date Distinct Identification Code MRI Safety Implantable Status Assigning Authority [id number] Unknown [id number] Unknown 01/27/23 Unknown Unknown Active GS1 EKG study * Event Display: EKG Authored Date: [id number] Note * Aj PAINTING, Delphine Braun: PERFORM Event Display: Patient Education Leaflets Authored Date: [id number] Upper Gastrointestinal (GI) Bleeding, Stable ?? [id number] Upper Gastrointestinal (GI) Bleeding, Stable Your upper gastrointestinal (GI) tract includes your esophagus, stomach, and upper small intestine.??You have signs of bleeding from your upper GI??tract. You may have vomited or coughed up blood or coffee-ground like material. Or you may have black or tarry stools.??Very small amounts of GI bleeding may not be visible and can only be found by a test of the stool. Causes of upper GI bleeding can include: ??? Tear in the lining of the esophagus ??? Enlarged veins in the esophagus or stomach, especially in someone with cirrhosis ??? An ulcer in the stomach or top of the small intestine ??? Severe irritation of the stomach ??? Inflammation of the digestive tract ??? Abnormal growth (tumor) of the upper digestive tract A bloody nose or mouth or dental problems may cause you to swallow blood. You may vomit this blood up. This is not true GI bleeding.??Iron supplements and medicines for diarrhea and upset stomach cancause black stools.??This is not GI bleeding and is not a cause for concern. Home care You've had an assessment for your bleeding. You will need to continue your care at home. Depending on the cause of your bleeding, care may include: ??? You may be given medicines to help protect yourGI tract, treat your problem, and help with healing. Take these as directed. Call your provider if you have questions about your medicines or side effects that concern you. ??? Sometimes tests such as endoscopy may also be used to stop bleeding. An endoscope is a thin flexible tube with a light andrew camera on the tip that is put into your stomach through your throat (esophagus). ??? Don't take NSAIDs, such as aspirin, ibuprofen, or naproxen. They can irritate the stomach and cause more bleeding. If you are taking these medicines for other reasons, talk with your provider before you stop them.? If you are on blood thinners, discuss the treatment plan with your provider. ??? Don't use alcohol, caffeine, or tobacco. These can delay healing and make your problem worse. If you have trouble stopping any of these things, ask your provider for treatment resources. ?? Follow-up care Follow up with your healthcare provider as advised. You may need more tests to find??the cause of your bleeding. ?? When to seek medical advice Call your healthcare provider right away??for any of the following: ??? Stomach pain starts or getsworse ??? Pain spreads to the neck, back, shoulder, or arm ??? Weakness or dizziness ??? Swelling of your belly ??? Red blood in your stool ??? Fever of 100.4??F (38??C) or higher, or as directed by your healthcare provider ??? New symptoms ?? Call 911 Call 911 if any of these occur: ??? Trouble breathing or swallowing ??? Severe dizziness ??? Loss of consciousness ??? Vomiting blood that is not related to a bloody nose or a dental procedure ??? Large amounts of blood in the stool ??? Black, tarry stool ??? Chest pain or lightheadedness ?? Last Reviewed Date: 2021 ?? [employer] All rights reserved. This information is not intended as a substitute for professional medical care. Always follow your healthcare professional's instructions. ?? * Aj PAINTING, Delphine Braun: PERFORM Event Display: Patient Education Leaflets Authored Date: [id number] Sucralfate Oral Tablet ?? 87476-01 Sucralfate Oral Tablet Brands: Carafate Uses This medicine is used for the following purposes: ??? stomach acid reflux ??? ulcers in stomach or intestines ??? ulcers in stomach or intestines ?? Instructions If you have trouble swallowing this medicine, please ask your pharmacist if a liquid is available. Take this medicine on an empty stomach. Do not eat or drink for 1 hour after taking the medicine. Do not take other medicines for 2 hours after taking this medicine. Store at room temperature away from heat, light, and moisture. Do not keep in the bathroom. This medicine can reduce the absorption of other medicines. Talk to your doctor or pharmacist aboutthe best times to use this product. It may take several weeks for this medicine to fully work. It is important that you keep taking each dose of this medicine on time even if you are feeling well. If you forget to take a dose on time, take it as soon as you remember. If it is almost time for thenext dose, do not take the missed dose. Return to your normal schedule. Do not take 2 doses at one time. Tell your doctor and pharmacist about all your medicines. Include prescription and enhw-[id number], vitamins, and herbal medicines. Tell your doctor if symptoms do not get better or if they get worse. ?? Cautions Tell your doctor and pharmacist if you ever had an allergic reaction to a medicine. Do not use the medication any more than instructed. Tell the doctor or pharmacist if you are , planning to be , or . It is unknown if this medicine passes into breast milk. Ask your doctor before . Do not start or stop any other medicines without first speaking to your doctor or pharmacist. Do not share this medicine with anyone who has not been prescribed this medicine. ?? Side Effects The following is a list of some common side effects from this medicine. Please speak with your doctor about what you should do if you experience these or other side effects. ??? constipation ??? dry mouth ??? excess gas ??? nausea ??? stomach upset or abdominal pain Call your doctor or get medical help right away if you notice any of these more serious side effects: ??? stomach pain ??? vomiting A few people may have an allergic reaction to this medicine. Symptoms can include difficulty breathing, skin rash, itching, swelling, or severe dizziness. If you notice any of these symptoms, seek medical help quickly. ?? Extra Please speak with your doctor, nurse, or pharmacist if you have any questions about this medicine. ?? [email or web address] IMPORTANT NOTE: This document tells you briefly how to take your medicine, but it does not tell youall there is to know about it. Your doctor or pharmacist may give you other documents about your medicine. Please talk to them if you have any questions. Always follow their advice. There is a more complete description of this medicine available in Portuguese. Scan this code on your smartphone or tablet or use the web address below. You can also ask your pharmacist for a printout. If you have any questions, please ask your pharmacist. The display and use of this drug information is subject to Terms of Use. Copyright(c) 2023 [employer]. ?? [employer]. All rights reserved. This information is not intended as a substitute for professional medical care. Always follow your healthcare professional's instructions. ?? * Aj PAINTING, Delphine Braun: PERFORM Event Display: Patient Education Leaflets Authored Date: [id number] Gastritis or Ulcer, No Antibiotic Treatment ?? [id number] Gastritis or Ulcer, No Antibiotic Treatment Gastritis??is irritation and inflammation of the stomach lining. This means the lining is red and swollen. It can cause shallow sores in the stomach lining called erosions. An??ulcer??is a deeper open sore in the lining of the stomach. It may also occur in the first part of the small intestine (duodenum).??The causes and symptoms of gastritis and ulcers are very similar. Causes and risk factors for both problems can include: ??? Long-term use of nonsteroidal anti-inflammatory drugs (NSAIDs) such as aspirin and ibuprofen ??? H. pylori??bacteria infection ??? Tobacco use ??? Alcohol use ??? Certain other conditions such asimmune disorders, certain medicines such as high-dose iron supplements, and street drugs such as cocaine Symptoms for both problems can include: ??? Dull or burning pain in the upper part of the belly ??? Loss of appetite ??? Heartburn or upsetstomach ??? Frequent burping ??? Bloated feeling ??? Nausea with or without vomiting You likely had an assessment to help find the exact cause and extent of your problem. This may haveincluded a health history, exam, and certain tests. Results showed that your problem is not from ??H. pylori??infection. For this reason, you don't need antibiotics as part of your treatment. Whether your problem is gastritis or an ulcer, you will still need to take other medicines. You will also need to follow instructions to help reduce stomach irritation so your stomach can heal.?? Home care ??? Take any medicines you???re prescribed exactly as directed. Common medicines used to treat gastritis include: o Antacids.??These help neutralize the normal acids in your stomach. o Proton pump inhibitors.??These block your stomach from making any acid. o H2??blockers. These reduce theamount of acid your stomach makes. o Bismuth subsalicylate.??This helps protect the lining of your stomach from acid. ??? Don't take any NSAIDs during your treatment. If you take NSAID to help treat other health problems, tell your healthcare provider. They may need to adjust your medicine plan or change the dosage. ??? Don???t use tobacco. Also don???t drink alcohol. These products can increase the amount of acid your stomach makes. This can delay healing. It can also worsen symptoms. ?? Follow-up care Follow up with your healthcare provider, or as advised. In some cases, you may need more tests. ?? When to seek medical advice Call your healthcare provider right away if any of these occur: ??? Fever of 100.4??F (38??C) or higher, or as directed by your healthcare??provider ??? Stomach pain that gets worse or moves to the lower right part of belly ??? Extreme tiredness (fatigue) ??? Weakness or dizziness ??? Continued weight loss ??? Frequent vomiting,??blood in your vomit, or coffee-groundlike substance in your vomit ??? Black, tarry, or bloody stools ??? Symptoms get worse or you have new symptoms ?? Call 911 Call 911??if any of these occur: ??? Chest pain appears or worsens, or spreads to the back, neck, shoulder, or arm ??? Unusually fast heart rate ??? Trouble breathing or swallowing ??? Confusion ??? Extreme drowsiness or trouble waking up ??? Fainting ??? Large amounts of blood present in vomit or stool ?? Last Reviewed Date: 2021 ?? 6956-8419 [employer]. All rights reserved. This information is not intended as a substitute for professional medical care. Always follow your healthcare professional's instructions. ?? Patient Care team information Care Team Personnel Name: Zander Xavier MD Position: [facility] Outreach Member Role: PCP Address: Address: [address] [place] [id number]- Name: Paul Menon RN Position: [facility] RN Member Role: Primary Care Nurse Name: Maryanne Ny Position: [facility] RN Member Role: Primary Care Nurse Name: Melissa Pham RN Position: [facility] REYES Nurse Member Role: Primary Care Nurse Name: Su Lewis RN Position: [facility] RN Member Role: Primary Care Nurse Care Team Related Persons Name: TONY PATEL Address: [place] [address] Name: YULY HE Address: home [address] [place] [address] Name: PT REQUESTS, NO ONE
--- OUTSIDE RECORDS SUMMARY | 2024-01-03 20:25 | XMS_ITS | Continuity of Care Document ---
Author Organization [facility] ter Address [address] [place] [address]- Care Team Providers Care Coating Machine Operator Name Role Phone Kimberly Lockhart MD, Zander Primary Care Phys ician Encounter [facility] Date(s): 11/30/20 - 11/30/20 [facility] [address] [place] [id number]- Encounter Diagnosis Evaluation by medical service required(Final) - 11/30/20 Discharge Disposition: A-D/C Home Attending Physician: Genesis Corona MD Admitting Physician: Genesis Corona MD Referring Physician: Not on Staff, Referring [...] 1 Refills, Maintenance, 10/18/20 11:18:00 EDT, Tablet, [facility] #[id number], Partial fill upon patient request if the prescription is for a schedule II opioid drug., 198, cm, 10/18/20 10:14:00 EDT... Start Date: 10/18/20 Status: Ordered lithium 300 mg oral tablet 2 tablet = 600 mg, By Mouth, Daily at bedtime, # 60 tablet, 1 Refills, Maintenance, 10/18/20 11:23:00 EDT, [facility] #[id number], Partial fill upon patient request if the [...] 1 Refills, Maintenance, 10/18/20 11:19:00 EDT, Tablet, [facility] #[id number], Partial fill upon patient request if the prescriptionis for a schedule II opioid drug., 198, melody, ... Start Date: 10/18/20 Status: Ordered multivitamin with minerals Vitamin D with Minerals oral tablet 1 tablet, By Mouth, Daily, # 30 tablet, 1 Refills, Maintenance, 10/31/20 10:35:00 EDT, Capsule, [facility] #[id number], Partial fill upon patient request if the prescription is for a schedule IIopioid drug., 1 tablet By Mouth Daily, 193, cm, ... Start Date: 10/31/20 Status: Ordered olanzapine 5 mg oral tablet 5 mg, 1, tablet, By Mouth, 2 times a day, # 60 tablet, Refills 1, Tot. Refills 1, Maintenance, 10/31/20 10:35:00 EDT, Route to Pharmacy Electronically, [facility] #[id number], Partial fill upon patient request if the [...] 10/18/20 11:21:00 EDT, Route to Pharmacy Electronically, [facility] #[id number], Partial fill upon patient request if the prescription is for a schedul... Start Date: 10/18/20 Status: Ordered Problem List Condition Effective Dates Status Health Status Inform ant Diabetes(Confirmed) Active Hypertension(Confirmed) Active Major depressive disorder(Confirmed) Active PTSD (post-traumatic stress disorder)(Confirmed) Active Tobacco use disorder(Confirmed) Active Vital Signs Most recent to oldest [Reference Range]: 1 2 Oxygen Saturation [94-100 %] 98 % (11/30/20 12:31 AM) 100 % (11/30/20 12:26 AM) Pulse Rate [55-90 bpm] 73 bpm (11/30/20 12:31 AM) 73 bpm (11/30/20 12:26 AM) Blood Pressure [90-138/55-84 mm Hg] 130/ 76mm Hg (11/30/20 12:31 AM) 130/76mm Hg (11/30/20 12:26 AM) Respiratory Rate [16-30 br/min] 18 br/mi n (11/30/20 12:31 AM) 18 br/min (11/30/20 12:26 AM) Temperature [96.8-100.4 DegF] 97.9 DegF (11/30/20 12:31 AM) 97.9 DegF (11/30/20 12:28 AM) Mode of Delivery (Oxygen) Room air (11/30/20 12:31 AM) Temperature Route Oral (11/30/20 12:31 AM) Oral (11/30/20 12:28 AM) Social History Social History Type Response Smoking Status Current every day brittany simms entered on: 12/03/17 Sex
--- OUTSIDE RECORDS SUMMARY | 2024-01-03 20:25 | XMS_ITS | Continuity of Care Document ---
Author Organization [facility] ter Address [address] [place] [id number]- Care Team Providers Care Junior Automation Engineer Name Role Phone Kimberly Lockhart MD, Zander Primary Care Phys [facility] [place] [facility] [place] - 08/13/[address] [address]- [facility] Discharge Disposition: A-D/C Home Attending Physician: Sandra Christianson MD Admitting Physician: Partha Ball MD Referring Physician: Not on Staff, Referring [...] 06/16/19 15:19:00 EST, Route to Pharmacy Electronically, [facility] #[id number], 199, cm, 06/16/19 9:58:00 EST, Height, 70.6, [...] Acute 06/16/20 9:00:00 EST,06/16/19 15:18:00 EST, Capsule, [email or web address] #[id number], 199, cm, 06/16/19 9:58:00 EST, Height,70.6, kg, 10/05/18 16:57:00 EDT, Dry Weight Start Date: 06/16/19 Stop Date: 06/16/20 Status: Ordered lithium 300 mg oral tablet 1 tablet = 300 mg, By Mouth, 2 times a day, # 60 tablet, 0 Refills, Maintenance, 06/16/19 15:18:00 EST, Tablet, [email or web address] #[id number], 199, cm, 06/16/19 9:58:00 EST, Height, 70.6, kg, 10/05/18 16:57:00 EDT, Dry Weight Start Date: 06/16/19 Status: Ordered nicotine 2 mg oral transmucosal gum = 2 mg, Chew, Every hour, PRN Other, Nicotine Withdrawal Symptoms (NOT to exceed 24 pieces per day), # 160 each, 0 Refills, Acute 06/16/20 9:00:00 EST, 06/16/19 15:20:00 EST, Gum, [email or web address] #[id number], 199, cm, 06/16/19 9:58:00 EST, Height, 70.... Start Date: 06/16/19 Stop Date: 06/16/20 Status: Ordered Problem List Condition Effective Dates Status Health Status Inform ant Hypertension(Confirmed) Active Major depressive disorder(Confirmed) Active PTSD (post-traumatic stress disorder)(Confirmed) Active Tobacco use disorder(Confirmed) Active Results Radiology Reports * Exam Date Time Procedure Performing Provider Status 08/12/19 11:43 PM Chest Portable Jose Agrawal; Aut h (Verified) Notes: (Chest Portable) Reason For Exam: Shortness of Breath RESULT: Chest Portable Chest Portable INDICATION/CLINICAL QUESTION: Reason: Shortness of Breath; Clinical Question(s): CHF / CHF TECHNIQUE: AP chest 2332 hours 08/12/2019.. COMPARISON: 03/16/2018. FINDINGS: LINES AND TUBES: Absent. LUNGS AND PLEURA: RIGHT CHEST: Bullous changes upper lung. Mid and lower lung clear. No effusion or pneumothorax.. LEFT CHEST: The lung is clear with no effusion or pneumothorax.. HEART AND MEDIASTINAL CONTOURS: Normal. BONES AND SOFT TISSUES: No acute abnormality.. IMPRESSION: 1. No active disease in chest. 2. Again noted is bullous change in the right upper lung. WSN: [id number] Ordering Physician: Angelina Loera Dictated By: Rudy Concepcion MD Dictated Date/Time: 08/12/19 11:46 p Reviewed By: Rudy Concepcion MD Signed By: Rudy Concepcion MD Signed Date/Time: 08/12/19 11:46 pm Transcribed By: KENYETTA Transcribed Date/Time: 08/12/19 11:45 pm Vital Signs Most recent to oldest [Reference Range]: 1 2 3 Height 195 cm (08/13/19 7:37 AM) 195 cm (08/13/19 1:57 AM) 195 cm (08/13/19 1:57 AM) Weight 58.1 kg (08/13/19 3:02 AM) 58.1 kg (08/13/19 1:57 AM) Oxygen Saturation [94-100 %] 95 % (08/13/19 7:37 AM) 100 % (08/13/19 1:57 AM) 99 % (08/13/19 12:24 AM) Pulse Rate [55-90 bpm] 52 bpm *L* (08/13/19 7:37 AM) 41 bpm *L* (08/13/19 1:57 AM) 42 bpm *L* (08/13/19 12:24 AM) Body Mass Index [18.5-24.99] 15.28 *L* (08/13/19 1:57 AM) Blood Pressure [90-138/55-84 mm Hg] 104/69mm Hg (08/13/19 7:37 AM) 105/62mm Hg (08/13/19 1:57 AM) 103/65mm Hg (08/13/19 12:24 AM) Respiratory Rate [16-30 br/min] 20 br/min (08/13/19 8:53 AM) 20 br/min (08/13/19 7:53 AM) 18 br/min (08/13/19 7:37 AM) Temperature [96.8-100.4 DegF] 98.0 DegF (08/13/19 7:37 AM) 97.1 DegF (08/13/19 1:57 AM) 98.6 DegF (08/12/19 10:27 PM) Mode of Delivery (Oxygen) Room air (08/13/19 7:37 AM) Room air (08/13/19 1:57 AM) Room air (08/13/19 12:24 AM) Blood pressure sites Arm, left (08/13/19 7:37 AM) Arm, right (08/13/19 1:57 AM) Arm, left (08/13/19 12:24 AM) Temperature Route Oral (08/13/19 7:37 AM) Oral (08/13/19 1:57 AM) Oral (08/12/19 10:27 PM) Dry Weight 58.1 kg (08/13/19 1:57 AM) Weight Obtained Via Bed scale (08/13/19 3:02 AM) Social History Social History Type Response Smoking Status Current every day brittany simms entered on: 12/03/17 Sex
--- OUTSIDE RECORDS SUMMARY | 2024-01-03 20:25 | XMS_ITS | Continuity of Care Document ---
Author Organization [facility] ter Address [address] [place] [address]- Care Team Providers Care Pyridine Operator Name Role Phone Kimberly Lockhart MD, Zander Primary Care Phys ician Encounter [facility] [place] Date(s): 12/21/20 - 12/25/[address] [address]- Encounter Diagnosis Suicidal ideation(Final) - 12/21/20 Discharge Disposition: A-D/C Home Attending Physician: Emerald Wolf MD Admitting Physician: Emerald Wolf MD Referring Physician: Juan Garcia MD Allergies, Adverse Reactions, Alerts Substance Reaction [...] 0 Refills, Maintenance, 10/31/20 10:35:00 EDT, Tablet, [facility]... Start Date: 10/31/20 Stop Date: 11/30/20 Status: Ordered escitalopram 10 mg oral tablet 1 tablet = 10 mg, By Mouth, Daily, # 30 tablet, 1 Refills, Maintenance, 10/18/20 11:18:00 EDT, Tablet, [facility] #[id number], Partial fill upon patient request if the prescription is for a schedule II opioid drug., 198melody, 10/18/20 10:14:00 EDT... Start Date: 10/18/20 Status: Ordered gabapentin 300 mg oral capsule 300 mg, Capsule, By Mouth, 12/25/20 9:00:00 EDT Start Date: 12/25/20 Stop Date: 12/25/20 Status: Completed lithium 300 mg oral tablet 2 tablet = 600 mg, By Mouth, Daily at bedtime, # 60 tablet, 1 Refills, Maintenance, 10/18/20 11:23:00 EDT, [facility] #[id number], Partial fill upon patient request if the prescription is for a schedule II opioid drug., 198melody, 10/18/20 10:14:00... Start Date: 10/18/20 Status: Ordered [...] 1 Refills, Maintenance, 10/18/20 11:19:00 EDT, Tablet, [facility] #[id number], Partial fill upon patient request if the prescriptionis for a schedule II opioid drug., melody Noe, ... Start Date: 10/18/20 Status: Ordered multivitamin with minerals Vitamin D with Minerals oral tablet 1 tablet, By Mouth, Daily, # 30 tablet, 1 Refills, Maintenance, 10/31/20 10:35:00 EDT, Capsule, [facility] #[id number], Partial fill upon patient request if the prescription is for a schedule IIopioid drug., 1 tablet By Mouth Daily, 193melody, ... Start Date: 10/31/20 Status: Ordered olanzapine 5 mg oral tablet 5 mg, 1, tablet, By Mouth, 2 times a day, # 60 tablet, Refills 1, Tot. Refills 1, Maintenance, 10/31/20 10:35:00 EDT, Route to Pharmacy Electronically, [facility] #[id number], Partial fill upon patient request if the [...] 10/18/20 11:21:00 EDT, Route to Pharmacy Electronically, [facility] #[id number], Partial fill upon patient request if the prescription is for a schedul... Start Date: 10/18/20 Status: Ordered Problem List Condition Effective Dates Status Health Status Inform ant Diabetes(Confirmed) Active Hypertension(Confirmed) Active Major depressive disorder(Confirmed) Active PTSD (post-traumatic stress disorder)(Confirmed) Active Tobacco use disorder(Confirmed) Active Results Radiology Reports * Exam Date Time Procedure Performing Provider Status 12/22/20 12:30 AM Chest Portable Diana Duncan; Au th (Verified) Notes: (Chest Portable) Reason For Exam: Shortness of Breath RESULT: Chest Portable Chest Portable Hx of Present Illness: Pt homless, EMS pick pt [place] at [place], pt endorses SI w vague plan and cocaineuse. Reports attempts to get into detox, last use 8p, endorses drinking increase to increase chances of getting into detox.; Reason: Shortness of Breath; Clinical Question(s): CHF COMPARISON: 10/11/2020 FINDINGS: LINES AND TUBES: None. LUNGS AND PLEURA: Low lung volumes with mild basilar atelectasis. Lungs are otherwise clear with no consolidation. No pleural effusion. No pneumothorax. HEART, MEDIASTINUM AND FREIDA: Heart is normal in size. Normal upper mediastinal and hilar contour. BONES AND SOFT TISSUES: No acute abnormality. IMPRESSION: No acute abnormality. WSN: [id number] Ordering Physician: Alvin Amezcua Dictated By: Estuardo Duron MD Dictated Date/Time: 12/22/20 8:42 am Reviewed By: Estuardo Duron MD Signed By: Estuardo Duron MD Signed Date/Time: 12/22/20 8:42 am Transcribed By: KENYETTA Transcribed Date/Time: 12/22/20 8:41 am Vital Signs Most recent to oldest [Reference Range]: 1 2 3 Oxygen Saturation [94-100 %] 99 % (12/25/20 6:48 AM) 100 % (12/24/20 8:13 PM) 100 % (12/24/20 3:29 PM) Pulse Rate [55-90 bpm] 73 bpm (12/25/20 6:48 AM) 72 bpm (12/24/20 8:13 PM) 64 bpm (12/24/20 3:29 PM) Blood Pressure [90-138/55-84 mm Hg] 118/74mm Hg (12/25/20 6:48 AM) 125/77mm Hg (12/24/20 8:13 PM) 109/64mm Hg (12/24/20 3:29 PM) Respiratory Rate [16-30 br/min] 18 br/min (12/25/20 9:29 AM) 16 br/min (12/25/20 8:29 AM) 16 br/min (12/25/20 6:48 AM) Temperature [96.8-100.4 DegF] 98.2 DegF (12/25/20 6:48 AM) 99.3 DegF (12/24/20 8:13 PM) 98.2 DegF (12/24/20 3:29 PM) Mode of Delivery (Oxygen) Room air (12/25/20 6:48 AM) Room air (12/24/20 8:13 PM) Room air (12/24/20 3:29 PM) Blood pressure sites Arm, right (12/25/20 6:48 AM) Arm, right (12/24/20 8:13 PM) Arm, left (12/24/20 3:29 PM) Temperature Route Oral (12/25/20 6:48 AM) Oral (12/24/20 8:13 PM) Oral (7/25/21 3:29 PM) Social History Social History Type Response Smoking Status Current every day brittany simms entered on: 12/03/17 Sex
--- OUTSIDE RECORDS SUMMARY | 2024-01-03 20:25 | XMS_ITS | Continuity of Care Document ---
Author Organization [facility] Address [address] [place] [address]- Care Team Providers Care Sales Solutions Associate Name Role Phone Kimberly Lockhart MD, Zander Primary Care Phys ician Encounter [facility] [place] Date(s): 01/10/20 - 02/09/20 [facility] [address] [place] [address]- [facility] Attending Physician: Admtr, Jacquelyn Admitting Physician: Admtr, Ar8 Referring Physician: Admtr, Ar8 Allergies, Adverse Reactions, Alerts Substance Reaction Severity [...] 1 Refills, Maintenance, 01/06/20 10:10:00 EDT, Gel, [facility] #[id number], 198.12, cm, 01/06/20 8:06:00 EDT, Height, 58, kg, 12/30/19 3:29:00 EDT, Dry Weight Start Date: 01/06/20 Status: Ordered escitalopram 20 mg oral tablet 1 tablet = 20 mg, By Mouth, Daily, # 30 tablet, 1 Refills, Maintenance, 01/06/20 9:22:00 EDT, Tablet, [facility] #[id number], 198.12, cm, 01/06/20 8:06:00 EDT, Height, 58, kg, 12/30/19 3:29:00 EDT, Dry Weight Start Date: 01/06/20 Status: Ordered gabapentin 300 mg oral capsule 300 mg, 1, capsule, By Mouth, 3 times a day, # 90 capsule, Refills 1, Tot. Refills 1, Maintenance, 01/06/20 9:23:00 EDT, Route to Pharmacy Electronically, [facility] #[id number], 198.12, cm, 01/06/20 8:06:00 EDT, Height, 58, kg, 12/30/19 3:29:00... Start Date: 01/06/20 Status: Ordered hydrOXYzine pamoate 50 mg oral capsule 1 capsule = 50 mg, By Mouth, 2 times a day, PRN Anxiety, Take NEEDED up to twice daily for anxiety/sleep, # 50 capsule, 1 Refills, Maintenance, 01/06/20 9:27:00 EDT, Capsule, [facility] #[id number], 198.12, cm, 01/06/20 8:06:00 EDT, Height, 58... Start Date: 01/06/20 Status: Ordered lithium 600 mg oral capsule 1 capsule = 600 mg, By Mouth, 2 times a day, # 60 capsule, 1 Refills, Maintenance, 01/06/20 9:23:00EDT, Capsule, [facility] #[id number], 198.12, cm, 01/06/20 8:06:00 EDT, Height, 58, kg, 12/30/19 3:29:00 EDT, Dry Weight Start Date: 01/06/20 Status: Ordered Lyrica 50 mg oral capsule 1 capsule = 50 mg, By Mouth, 3 times a day, # 90 capsule, 1 Refills, Maintenance, 01/06/20 9:27:00 EDT, Capsule, [facility] #[id number], 198.12, cm, 01/06/20 8:06:00 EDT, Height, 58, kg, 12/30/19 3:29:00 EDT, Dry Weight Start Date: 01/06/20 Status: Ordered mirtazapine 7.5 mg oral tablet 1 tablet = 7.5 mg, By Mouth, Daily at bedtime, # 30 tablet, 1 Refills, Maintenance, 01/06/20 9:25:00 EDT, [facility] #[id number], 198.12, cm, 01/06/20 8:06:00 EDT, Height, 58, kg, 12/30/19 3:29:00 EDT, Dry Weight Start Date: 01/06/20 Status: Ordered Nicoderm C-Q Clear 21 mg/24 hr transdermal film, extended release 1 patch, Topically, Daily, # 30 patch, 1 Refills, Acute 03/08/20 9:24:00 EDT, 01/06/20 9:24:00 EDT,Patch, [facility] #[id number], 198.12, cm, 01/06/20 8:06:00 EDT, Height, 58, kg, 12/30/19 3:29:00 EDT, Dry Weight Start Date: 01/06/20 Stop Date: 03/08/20 Status: Ordered Nicotine 2 mg gum = 2 mg, Chew, Every hour, PRN Other, cigarette craving, # 60 each, 1 Refills, Acute 03/08/20 9:25:00 EDT, 01/06/20 9:25:00 EDT, Gum, [facility] #[id number], 198.12, cm, 01/06/20 8:06:00 EDT, Height, 58, kg, 12/30/19 3:29:00 EDT, Dry Weight Start Date: 01/06/20 Stop Date: 03/08/20 Status: Ordered olanzapine 5 mg oral tablet 5 mg, 1, tablet, By Mouth, Daily, # 30 tablet, Refills 1, Tot. Refills 1, Maintenance, 01/06/20 9:26:00 EDT, Route to Pharmacy Electronically, [facility] #[id number], 198.12, cm, 01/06/20 8:06:00 EDT, Height, 58, [...]
--- OUTSIDE RECORDS SUMMARY | 2024-01-03 20:25 | XMS_ITS | Continuity of Care Document ---
Author Organization [facility] ter Address [address] [place] [address]- Care Team Providers Care Mounter Saxophones Name Role Phone Kimberly Lockhart MD, Zander Primary Care Phys ician Encounter [facility] Date(s): 05/15/23 - 05/16/23 [facility] [address] [place] [address]- Encounter Diagnosis Cocaine use(Final) - 05/16/23 History of bipolar disorder(Final) - 05/16/23 Housing instability(Final) - 05/16/23 Constipation(Final) - 05/16/23 Discharge Disposition: A-D/C Home Attending Physician: Josiah Schmitt MD Admitting Physician: Josiah Schmitt MD Referring Physician: Not on Staff, Referring [...] opioid drug. Start Date: 07/05/21 Status: Ordered lactulose 10 gm/15 ml oral syrup 15 mL = 10 Gm, By Mouth, Daily, PRN as needed for constipation, # 480 mL, 0 Refills, Maintenance, 05/16/23 10:37:00 EST, Syrup, [id number], Partial fill upon patient request if the prescription is for a schedule II opioid drug., 15 mL... Start Date: 05/16/23 Status: Ordered lithium 300 mg oral tablet [...] 1 Refills, Maintenance, 10/18/20 11:19:00 EDT, Tablet, [facility] #[id number], Partial fill upon patient request if the [...] Date: 02/06/21 Status: Ordered Problem List Condition Confirmation Course Effective Dates Status Health St atus Informant Diabetes Confirmed Active Hypertension Confirmed Active Major depressive disorder Confirmed Active PTSD (post-traumatic stress disorder) Confirmed Active Tobacco use disorder Confirmed Active Results Radiology Reports * Exam Date Time Procedure Performing Provider Status 05/16/23 6:49 AM Chest 2 Views Frontal and Lat Ling Strong; Auth (Verified) Notes: (Chest 2 Views Frontal and Lat) Reason For Exam: Shortness of Breath RESULT: Chest 2 Views Frontal and Lat Chest 2 Views Frontal and Lat Hx of Present Illness: pt here with constipation x 1 week and having high litium levels the patients says ans so he is peeing on himself sts he is homeless and doesnt have meds denies SI or HI; Reason: Shortness of Breath; Clinical Question(s): Atelectasis COMPARISON: Multiple prior chest radiographs with the most recent dated 02/05/2021. FINDINGS: LINES AND TUBES: None. LUNGS AND PLEURA: Again noted is moderate hyperinflation of the lungs bilaterally with significant emphysematous changes in the right upper lobe unchanged. No focal consolidation.. Normal pulmonary vascularity. No pleural effusion. No pneumothorax. HEART, MEDIASTINUM AND FREIDA: Heart is normal in size. Normal mediastinal and hilar contour. BONES AND SOFT TISSUES: No acute abnormality. IMPRESSION: No significant interval change. Persistent moderate emphysema bilaterally with extensive bullous emphysema in the right upper lobe unchanged. No focal consolidation seen. WSN: [id number] Ordering Physician: Samuel Peterson Dictated By: Epifanio Vigil MD, V Dictated Date/Time: 05/16/23 8:35 am Reviewed By: Epifanio Vigil MD, V Signed By: Epifanio Vigil MD, V Signed Date/Time: 05/16/23 8:35 am Transcribed By: KENYETTA Transcribed Date/Time: 05/16/23 8:30 am * Exam Date Time Procedure Performing Provider Status 05/16/23 5:[address] Abd/Pelvis W/ IV Contrast Only Stupak , Alexi; Auth (Verified) Notes: (CT Abd/Pelvis W/ IV Contrast Only) Reason For Exam: LLQ, RLQ, epigastric abdominal pain;Other: RESULT: CT Abd/Pelvis W/ IV Contrast Only CT Abd/Pelvis W/ IV Contrast Only Hx of Present Illness: pt here with constipation x 1 week and having high litium levels the patients says ans so he is peeing on himself sts he is homeless and doesnt have meds denies SI or HI; Reason: LLQ, RLQ, epigastric abdominal pain; Clinical Question(s): Obstruction TECHNIQUE: Spiral CT through the abdomen and pelvis with IV contrast formatted in 3 planes. 100 cc of Omnipaque 300 was administered intravenously. This study was performed without oral contrast. Weight-based protocol using automatic tube modulation was used to optimize exposure parameters. CTDIvol Body: 12.40 mGy, DLP Body: 698 mGy*cm. COMPARISON: CT abdomen and pelvis 08/31/2021. FINDINGS: Angiography Technologist View Findings, Lines and Tubes: None. Visualized Chest: Faint central predominant groundglass opacities predominantly in the right lower lobe. No dense consolidation. Subsegmental atelectasis. No pleural effusion. The heart is normal in size. No pericardial effusion. Diaphragm: Normal. Liver: Normal. Gallbladder: No CT evidence of gallbladder pathology. Bile ducts: No biliary ductal dilation. Spleen: Normal. Pancreas: Normal. Adrenal glands: Normal. Kidneys and ureters: No hydronephrosis, stones, or suspicious masses. Bladder: Normal. Reproductive organs: Unremarkable. Stomach, small bowel, and large bowel: Small type I hiatal hernia otherwise the stomach is normal. Small bowel course and caliber. Moderate colonic stool burden with relative decompression of the sigmoid. There are scattered colonic diverticula without acute diverticulitis. No bowel obstruction. Appendix: Normal. Peritoneum and retroperitoneum: No ascites or pneumoperitoneum. No omental or mesenteric lesions. Lymph nodes: No enlarged lymph nodes. Blood vessels: Normal. No aneurysm. No evidence of venous thrombosis. Abdominal and pelvic wall: Status post left inguinal hernia repair without evidence of reherniation. No acute abnormality. Bones: No acute abnormality. IMPRESSION: 1. Right lower lobe groundglass opacities, nonspecific and may be secondary to infectious/inflammatory etiology. 2. No acute intra-abdominal abnormality. Moderate colonic stool burden. No evidence of bowel obstruction. Wet read provided via [facility] by Dr. Carrera on 05/16/2023 5:21 AM. I have personally reviewed the images and I agree with this report. WSN: [id number] Ordering Physician: Samuel Peterson Dictated By: Braulio Carrera DO Dictated Date/Time: 05/16/23 7:54 am Reviewed By: Louis Lu MD Signed By: Louis Lu MD Signed Date/Time: 05/16/23 7:59 am Transcribed By: KENYETTA Transcribed Date/Time: 05/16/23 5:21 am Vital Signs Most recent to oldest [Reference Range]: 1 2 3 Oxygen Saturation [94-100 %] 97 % (05/16/23 11:08 AM) 99 % (05/16/23 7:57 AM) 95 % (05/16/23 3:56 AM) Pulse Rate [55-90 bpm] 87 bpm (05/16/23 11:08 AM) 64 bpm (05/16/23 7:57 AM) 88 bpm (05/16/23 3:56 AM) Blood Pressure [90-138/55-84 mm Hg] 122/90mm Hg (05/16/23 11:08 AM) 126/84mm Hg (05/16/23 7:57 AM) 125/84mm Hg (05/16/23 3:56 AM) Respiratory Rate [16-30 br/min] 16 br/min (05/16/23 11:08 AM) 16 br/min (05/16/23 7:57 AM) 16 br/min (05/16/23 3:56 AM) Temperature [96.8-100.4 DegF] 97.4 DegF (05/16/23 2:50 AM) 98.6 DegF (05/16/23 1:21 AM) 98.5 DegF (05/16/23 12:27 AM) Mode of Delivery (Oxygen) Room air (05/16/23 11:08 AM) Room air (05/16/23 7:57 AM) Room air (05/16/23 3:56 AM) Blood pressure sites Arm, left (05/16/23 11:08 AM) Arm, left (05/16/23 7:57 AM) Arm, left (05/16/23 3:56 AM) Temperature Route Oral (05/16/23 2:50 AM) Oral (05/16/23 1:21 AM) Oral (05/16/23 12:27 AM) Dry Weight 75 kg (05/16/23 7:57 AM) 75 kg (05/16/23 3:56 AM) 75 kg (05/15/23 5:19 PM) Dry Weight Obtained Via Patient/family s tated (05/15/23 2:12 PM) Social History Social History Type Response Smoking Status Never (less than 100 in lifetime) entered on: 08/31/21 Sex Implantable Device List Procedure Provider Procedure Date Device Type Site Repair Hernia Inguinal Laparoscopic Dillan Childs MD 07/19/21 Unknown Pelvis Left Device Identifier Serial Number Lot or Batch Number Manufacturing Date Expiration Date Distinct Identification Code MRI Safety Implantable Status Assigning Authority [id number] Unknown [id number] Unknown 01/27/23 Unknown Unknown Active GS1 Note * Raul PAINTING, Delmis Chau: PERFORM Event Display: Patient Education Leaflets Authored Date: [id number] Constipation (Adult) ?? [id number] Constipation (Adult) Constipation means that you have bowel movements that are less frequent than usual. Stools often become very hard and difficult to pass. Constipation is very common. At some point in life, it affects almost everyone. Since everyone's bowel habits are different, what is constipation to one person may not be to another. Your healthcare provider may do tests to diagnose constipation. It depends on what??they??find when evaluating you. Symptoms of constipation include: ??? Abdominal pain ??? Bloating ??? Vomiting ??? Painful bowel movements ??? Itching, swelling, bleeding, or pain around the anus Causes Constipation can have many causes. These include: ??? Diet low in fiber ??? Too much dairy ??? Not drinking enough liquids ??? Lack of exercise or physical activity (especially true for older adults)??? Changes in lifestyle or daily routine, including , aging, work, and travel ??? Frequent use or misuse of laxatives ??? Ignoring the urge to have a bowel movement or delaying it until later ??? Medicines, such as certain prescription pain medicines, iron supplements, antacids, certain antidepressants, and calcium supplements ??? Diseases like irritable bowel syndrome, bowel obstructions, stroke, diabetes, thyroid disease, Parkinson disease, hemorrhoids, and colon cancer ?? Complications Possible complications of constipation can include: ??? Hemorrhoids ??? Rectal bleeding from hemorrhoids or anal fissures??(skin tears) ??? Hernias ??? Chronic constipation ??? Fecal impaction, a severe form of constipation in which a large amount of hard stool is in your rectum that you can't pass??? Bowel obstruction or perforation ?? Home care All treatment should be done after talking with your healthcare provider. This is especially true if you have another medical problem, are taking prescription medicines, or are an older adult. Treatment most often involves lifestyle changes. You may also need medicines. Your healthcare provider will tell you which will work best for you. Follow the advice below to help avoid this problem in the future. ?? Lifestyle changes These lifestyle changes can help prevent constipation: ??? Diet. Eat a high- fiber diet, with fresh fruit and vegetables, and reduce dairy intake, meats, and processed foods ??? Fluids. It's importantto get enough fluids each day. Drink plenty of water when you eat more fiber. If you are on diet that limits the amount of fluid you can have, talk about this with your healthcare provider. ??? Regular exercise. Check with your healthcare provider first. ?? Medicines Take any medicines as directed. Some laxatives are safe to use only every now and then. Others can be taken on a regular basis. While laxatives don't cause bowel dependence, they are treating the symptoms. So your constipation may return if you don't make other changes. Talk with your healthcare provider or pharmacist if you have questions. Prescription pain medicines can cause constipation. If you are taking this kind of medicine, ask your healthcare provider if you should also take a stool softener. Medicines you may take to treat constipation include: ??? Fiber supplements ??? Stool softeners ???Laxatives ??? Enemas ??? Rectal suppositories ?? Follow-up care Follow up with your healthcare provider if symptoms don't get better in the next few days. You may need to have more tests or see a specialist. ?? Call 911 Call 911 if any of these occur: ??? Trouble breathing ??? Stiff, rigid abdomen that is severely painful to touch ??? Large amount of blood in the stool ??? Confusion ??? Fainting or loss of consciousness ??? Rapid heart rate ??? Chest pain ?? When to seek medical advice Call your healthcare provider right away if any of these occur: ??? Fever of 100.4??F (38??C) or higher, or as directed by your healthcare provider ??? Failure to resume normal bowel movements ??? Pain in your abdomen or back gets worse ??? Nausea or vomiting ??? Swelling in your abdomen ??? Small amount of blood in the stool ??? Black, tarry stool ??? Involuntary weight loss ??? Weakness ?? Last Reviewed Date: 2021 ?? [phone] The [employer]. All rights reserved. This information is not intended as a substitute for professional medical care. Always follow your healthcare professional's instructions. ?? * Delmis Carter MD: PERFORM Event Display: Patient Education Leaflets Authored Date: [id number] [facility] - If you need a Doctor or Clinic ?? 34 If You Need a Doctor or Clinic ?? Call [facility] PCP Assignment Line to help you find a doctor:?? [phone] ?? Clinics in [place], [place] For a full list of clinics:? www.[employer] ?? [facility]? [address] [phone] [facility]?[address]?[phone] [facility]?[address][phone] [facility]?[address][phone] [facility]?[address] [phone] [facility]?[address][phone] [facility]?[address][phone] [facility]?[address] [phone] [facility]? [address][phone] [facility] social [facility]?[address][phone] [facility]?[address][phone] [facility]?[address][phone] [facility]?[address][phone] [facility]? [address][phone] [facility]?[address][phone] ? * Delmis Carter MD: PERFORM Event Display: Patient Education Leaflets Authored Date: [id number] [facility] - Shelters ?? 35 [facility] Emergency Department Community [facility] Directory ?? EMERGENCY Shelters Important: Alcohol and drugs are absolutely forbidden in all shelters. ?? [facility] ([facility]) [address] [place], [place] [phone] Adult men and women only- no children 3 meals day served-health care and dental clinic Referral: Walk-ins are accepted/ phone calls are preferred ?? [facility] [address] [place], [place] [phone] Men only- [facility]- reopening 07/2012 Referrals: Must line up by 3pm. district manager major accounts sales for intake. ?? Miguel Ball [address] [place] [address] Adult men and women 2 meals per day/health care nurse Referral: Must contact intake by phone before coming ?? [facility] [address] [place] [address] Adult men and women open Nov 1-September 30 3 meals day-must leave senior living by 7am Referral: First come, first serve line up begins at 5:30pm ?? [facility] [address] [place], [place] [phone] Adult men and women (one room for families with children) Referral: First come, first serve lineup begins at 3:30pm ?? [facility] [address] [place], [place]?? [address] Men only Referral:?? $300.00/month fee (1st??month alen period available) ?? [address]?? [address] Men only ?? [facility] [place], [place] [address] [facility] ?? [place] [address] Women and children ?? [facility]???s [facility] [address] [place] [address]?? Women and children ?? [facility] (relocation and support) [place], [place] (Hotline) Emergency Abuse and Rape crises support, senior living ?? [facility] Rape/Domestic Violence Hotline Usp referral ? [facility] ([facility]) [address] [place], [place]?? [address] Lunch and Dinner provided (Mon ???Sat: Noon and 5pm; Sun: 1 and 5pm) ?? Additional Usp Options ?? [facility] Emergency [facility] [address] [facility] [phone] [place] + [place] [address] ? [facility] [address] [phone] Male + Female Beds [facility] [address] [address] [facility] [address] [phone] ?? [facility] [address] [address] [facility] [address] [phone] ?? [facility] [address] ?[place] [facility] [address] [facility] [phone] ?? [facility] [address] ? [facility] [address] [phone] By Application Only/Must Call [facility] [address] ? [facility] [address] [phone] ? [facility] [address] [address] [facility] [address] [facility] [phone] ?? [facility] [address] ? [facility] [address] [facility] [phone] ?? [facility] [address] ?[facility] ?? [phone] ?[facility]? [place], [place]?? [phone]? Emergency short stay, women, men, families ? [place], [place]?? [phone] Families, adults, men, LGBTQ ? [facility]?[place],??[place]?[phone]?[facility] ??[place] [address]?[phone]?[facility] [place], [place] [phone] ?[facility] [place] ??[phone] ? [address] [facility] [place] [phone] ? [facility] [place] [phone] ? [facility] [place] [phone] ? [facility] [place] [phone] ?[place] [facility] ??[place] ??[phone] ? Patient Care team information Care Team Personnel Name: Zander Xavier MD Position: [facility] Outreach Member Role: PCP Address: Address: [address] [place] [address]- Name: Paul Menon RN Position: S RN Member Role: Primary Care Nurse Name: Herlinda Serna RN Position: [facility] RN Member Role: Primary Care Nurse Name: Maryanne Ny Position: [facility] RN Member Role: Primary Care Nurse Name: Melissa Pham RN Position: [facility] AMB Nurse Member Role: Primary Care Nurse Name: Su Lewis RN Position: [facility] RN Member Role: Primary Care Nurse Name: Natalie Desouza RN Position: [facility] ED RN W/OE and Tasks Member Role: Patient Care Provider Name: Josiah Schmitt MD Position: [facility] ED Medicine MD Member Role: Admitting Physician Address: Address: [address] [place] [address] Name: Delmis Carter MD Position: [facility] Resident Member Role: ED Resident Address: Address: [address] [place] [address] Name: Angelica Obrien Position: [facility] ED TA [facility] Member Role: Patient Care Provider Care Team Related Persons Name: TONY PATEL Address: [place] [address] Name: YULY HE Address: home [address] [place] [address]
--- OUTSIDE RECORDS SUMMARY | 2024-01-03 20:25 | XMS_ITS | Continuity of Care Document ---
Author Organization [facility] Address [address] [place] [address]- Care Team Providers Care Skiver Blockers Name Role Phone Kimberly Lockhart MD, Zander Primary Care Phys ician Encounter [facility] Date(s): 04/23/21 - 04/23/21 [facility] [address] [place] [address]- Discharge Disposition: A-D/C Home Attending Physician: Gustabo Silva MD Admitting Physician: Gustabo Silva MD Referring Physician: Not on Staff, Referring [...] tablet, 1 Refills, Maintenance, 10/18/20 11:23:00 EDT, [facility] #[id number], Partial fill upon patient request if the [...] 1 Refills, Maintenance, 10/18/20 11:19:00 EDT, Tablet, [facility] #[id number], Partial fill upon patient request if the prescriptionis for a schedule II opioid drug., 198, cm, ... Start Date: 10/18/20 Status: Ordered multivitamin with minerals Vitamin D with Minerals oral tablet 1 tablet, By Mouth, Daily, # 30 tablet, 1 Refills, Maintenance, 10/31/20 10:35:00 EDT, Capsule, [facility] #[id number], Partial fill upon patient request if the prescription is for a schedule IIopioid drug., 1 tablet By Mouth Daily, 193, cm, ... Start Date: 10/31/20 Status: Ordered nicotine 14 mg/24 hr transdermal film, extended release 1 patch, Topically, Daily, # 30 patch, 1 Refills, Maintenance, 02/09/21 10:23:00 EDT, Patch, [facility] #[id number], Partial fill upon patient request if the prescription is for a schedule II opioid drug., 1 patch Topically Daily, 196, cm, ... Start Date: 02/09/21 Status: Ordered nicotine 2 mg oral transmucosal gum = 2 mg, Chew, Every 15 minutes, PRN Other, Cigarette craving. Not to exceed 30 doses in 24 hours, #160 each, 1 Refills, Maintenance, 02/09/21 10:22:00 EDT, Gum, [facility] #[id number], Partial fill upon patient request if the [...] 0 Refills, Maintenance, 04/23/21 13:22:00 EST, Tablet, [facility][id number], Partial fill upon patient requestif the prescription [...] opioid drug. Start Date: 02/06/21 Status: Ordered Toradol Inj 15 mg, Injection, IV Push Slowly, Once, Routine, 04/23/21 13:00:00 EST, Stop date 04/23/21 13:00:00EST Start Date: 04/23/21 Stop Date: 04/23/21 Status: Completed Problem List Condition Effective Dates Status Health Status Inform ant Diabetes(Confirmed) Active Hypertension(Confirmed) Active Major depressive disorder(Confirmed) Active PTSD (post-traumatic stress disorder)(Confirmed) Active Tobacco use disorder(Confirmed) Active Vital Signs Most recent to oldest [Reference Range]: 1 2 3 Height 196 cm (04/23/21 11:21 AM) 196 cm (04/23/21 11:20 AM) Weight 82.5 kg (04/23/21 11:21 AM) 82.5 kg (04/23/21 11:20 AM) Oxygen Saturation [94-100 %] 100 % (04/23/21 1:41 PM) 98 % (04/23/21 11: AM) Pulse Rate [55-90 bpm] 69 bpm (04/23/21 1:41 PM) 84 bpm (04/23/21 11:21 AM) Body Mass Index [18.5-24.99] 21.48 (04/23/21 11: AM) Blood Pressure [90-138/55-84 mm Hg] 121/79mm Hg (04/23/21 1:41 PM) 118/88mm Hg (04/23/21 11:21 AM) Respiratory Rate [16-30 br/min] 16 br/min (04/23/21 1:41 PM) 16 br/min (04/23/21 12:26 PM) 20 br/min (04/23/21 11:21 AM) Temperature [96.8-100.4 DegF] 98.5 DegF (04/23/21 11: AM) Mode of Delivery (Oxygen) Room air (04/23/21 1:41 PM) Room air (04/23/21 11:21 AM) Temperature Route Oral (04/23/21 11:21 AM) Dry Weight 82.5 kg (04/23/21 11:20 AM) Social History Social History Type Response Smoking Status Current every day brittany simms entered on: 12/03/17 Sex
--- OUTSIDE RECORDS SUMMARY | 2024-01-03 20:25 | XMS_ITS | Continuity of Care Document ---
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 Name Role Phone Kimberly Lockhart MD, Zander Primary Care Phys ician Encounter [facility] [place] [place] Date(s): 09/24/23 - 09/24/[address] [address]- Discharge Disposition: A-D/C Shelter, Halfway, or Intermediate Fac Attending Physician: America Cerrato DO Admitting Physician: America Cerrato DO Referring Physician: Not on Staff, Referring [...] MOUTH DAILY Start Date: 09/24/23 Status: Ordered CHLORPROMAZINE 100MG TABLETS CHLORPROMAZINE 100MG TABLETS, 0 Refills, Maintenance, 09/24/23 6:15:00 EDT Start Date: 09/24/23 Status: Ordered escitalopram 10 mg oral tablet [...] opioid drug. Start Date: 09/24/23 Status: Ordered mirtazapine 15 mg oral tablet 1/2 tablet, By Mouth, Daily at bedtime, for 30 days, TAKE 1/2 TABLET BY MOUTH AT BEDTIME, PhysicianStop 10/09/23 7:45:00 EDT Start Date: 09/09/23 Stop Date: 10/09/23 Status: Ordered omeprazole 20 mg oral enteric [...] 0 Refills,Maintenance, 08/05/23 14:50:00 EST, [id number] Partial fill upon patient request if the [...] 3 Oxygen Saturation [94-100 %] 100 % (09/24/23 8:45 AM) 100 % (09/24/23 5:21 AM) 100 % (09/24/23 4:26 AM) Pulse Rate [55-90 bpm] 86 bpm (09/24/23 8:45 AM) 76 bpm (09/24/23 5:21 AM) 82 bpm (09/24/23 4:26 AM) Blood Pressure [90-138/55-84 mm Hg] 122/63mm Hg (09/24/23 8:45 AM) 139/90mm Hg *H* (09/24/23 5:21 AM) 128/78mm Hg (09/24/23 4:26 AM) Respiratory Rate [16-30 br/min] 16 br/min (09/24/23 8:45 AM) 16 br/min (09/24/23 5:21 AM) 18 br/min (09/24/23 4:26 AM) Temperature [96.8-100.4 DegF] 97.9 DegF (09/24/23 8:45 AM) 97.5 DegF (09/24/23 2:04 AM) Mode of Delivery (Oxygen) Room air (09/24/23 8:45 AM) Room air (09/24/23 5:21 AM) Room air (09/24/23 4:26 AM) Blood pressure sites Arm, right (09/24/23 8:45 AM) Arm, right (09/24/23 5:21 AM) Arm, right (09/24/23 4:26 AM) Temperature Route Oral (09/24/23 8:45 AM) Oral (09/24/23 2:04 AM) Social History Social History Type Response Smoking Status Never (less than 100 in lifetime) entered on: 08/31/21 Sex Implantable Device List Procedure Provider Procedure Date Device Type Site Repair Hernia Inguinal Laparoscopic Dillan Childs MD 07/19/21 Unknown Pelvis Left Device Identifier Serial Number Lot or Batch Number Manufacturing Date Expiration Date Distinct Identification Code MRI Safety Implantable Status Assigning Authority [id number] Unknown [id number] Unknown 01/27/23 Unknown Unknown Active GS1 Consult note * Verona Bassett DO: PERFORM Event Display: Consultation Note Authored Date: [id number] Patient: ??GIANLUCA DAVIS ? Age:??43 Years?Sex:??Male?:??1980? Extensive chart review was performed, and case discussed with treatment team.? In brief, this is a??43-year-old gentleman with past psychiatric history significant for major depressive disorder, posttraumatic stress disorder, suicidality, and multiple prior inpatient psychiatric hospitalizations for treatment of the same as well as medical history notable for COPD, pancreatitis, hypertension, esophagitis, gastritis, tobacco and cocaine use disorder, who initially presented to [facility] on 09/24/23 for detox placement of crack cocaine misuse, later relaying recently worsening depression and suicidal ideation in the context of medication nonadherence and ongoing crack cocaine use.??Initial vital signs were generally hemodynamically stable.?? Labs demonstrated mild leukocytosis with WBC 11.1, mild normocytic anemia with hemoglobin 13.1, no electrolyte derangements, mild prerenal dehydration with BUN 25, creatinine within normal limits.?? TSH was within normal limits.?? Serum ethanol was not detected.?? Urine toxicology was positive for cannabinoids, co gabriela, and benzodiazepines, but otherwise negative for barbiturates, amphetamines, and opiates.?? Virology testing was negative for influenza A, B, RSV, and COVID???19 by PCR testing.?? There was no diagnostic head imaging available for review from this ED presentation.? =At this point in time, the patient has been medically cleared and referred to [facility] for evaluation and assistancewith initial disposition being made for [facility] services. With the crisis team, Gianluca did express a desire to go to detox, but stated that he would also consider section 35 if he was unable to get a detox placement.?? He had relayed a vague suicide attempt as recently as earlier this month (declined to provide any details), but denied any current suicidal ideation, homicidal ideation, or desires forself???injurious behaviors.??Primary concern was related to an unspecified depressive illness with??substantial crack cocaine misuse contributing to an additional??substance-withdrawal mood disorder.??Please see initial crisis evaluation from Jes Jennings dated 09/20/2023 for additional information.?? The crisis team subsequently requested a referral be made to social work for potential section 35petition, which was completed by Wu Quintanilla. The emergency psychiatry service was also consul deb for assistance with??psychotropic medication management. Given that the patient was going to bedischarged to [facility] custody for transfer to the [facility], a full psychiatric consultation was deferred. Gianluca is known to this proposal writer from prior ED psychiatric consultationsas recently as 07/07/23.?? Based on the available information and external pharmacy records, it seems reasonable to resume the patient's home psychotropic medications which include Abilify 5 mg daily, Thorazine 100 mg 3 times daily as needed for agitation, and Remeron 7.5 mg daily at bedtime.?? It is not clear to this proposal writer that he is taking lithium or Lexapro since recent discharge from [facility], so these are being held.??In the interim, it is reasonable to start Vistaril 50 mg PO Q6H PRN anxiety and Trazodone 50 mg PO daily at bedtime PRN insomnia. Can also utilize additional??Thorazine 50 mg IM Q6H PRN agitation/psychosis. The preference is for PO medications, but if the patient refuses the oral medications and there is sufficient acute safety concern, can judiciously utilize IM equivalents for severe agitation. No additional changes were made to scheduled psychotropic medications at this time. Would note that these medications are only being utilized in the ER and/or medical floors while the patient awaits placement. Long-term need for these medications will need to be assessed by the patient's future treating psychiatrist. Disposition is ultimately deferred to [facility] services.?Please obtain an ECG when possible given that the patient is on multiple psychotropic agents which have the potential for QT prolongation as well as recent cocaine/stimulant misuse. ?Vitals:?? No Vitals found for last 24 hours 09/24/2023 08:45?Mean Arterial Pressure ?102 mm Hg?Active Problems(6) Diabetes Hypertension Major depressive disorder PTSD (post-traumatic stress disorder) Tobacco use disorder Underweight ?Medications (10) Active SCHEDULED: (4) Aripiprazole 5 mg Tablet (ARIPiprazole 5 mg oral tablet) ??5 mg, By Mouth, Daily Hydrochlorothiazide 25 mg Tablet (hydrochlorothiazide 25 mg oral tablet) ??12.5 mg, By Mouth, Daily Mirtazapine 15 mg Tablet (Mirtazapine) ??7.5 mg, By Mouth, Daily at bedtime Pantoprazole 20 mg EC Tablet (Protonix 20 mg oral delayed release tablet) ??20 mg, By Mouth, Daily CONTINUOUS: (0) PRN: (6) Acetaminophen 325 mg Tablet (Acetaminophen Tablet) ??650 mg, By Mouth, Every 8 hours Al hydroxide/Mg hydroxide/simethicone 200 mg-200 mg-20 mg/5 mL Susp UD (Maalox Plus Liquid) ??30 mL, By Mouth, Every 8 hours Ibuprofen 400 mg Tablet (Ibuprofen Tablet) ??400 mg, By Mouth, Every 8 hours Lorazepam 1 mg Tablet (LORazepam Tablet) ??1 mg, By Mouth, Every 8 hours Melatonin 3 mg Tablet (Melatonin Tablet) ??9 mg, By Mouth, Daily at bedtime?? ChlorproMAZINE 50 mg Tablet (ChlorproMAZINE Tablet) ??100 mg, By Mouth, 3 times a day ? Hematology ? Event Name?? Event Result?? Date/Time?? WBC 11.1 k/mm3??High 09/24/23 02:28:00 RBC 4.7 m/mm3 09/24/23 02:28:00 Hgb 13.1 Gm/dL??Low 09/24/23 02:28:00 Hct 40.2 %??Low 09/24/23 02:28:00 MCV 85.5 femtoliters 09/24/23 02:28:00 MCH 27.9 pg 09/24/23 02:28:00 MCHC 32.6 g/dL??Low 09/24/23 02:28:00 Platelet Count 236 k/mm3 09/24/23 02:28:00 RDW-SD 40.9 femtoliters 09/24/23 02:28:00 MPV 10.4 femtoliters 09/24/23 02:28:00 Nucleated RBC (Automated) 0 #/100 WBC'S 09/24/23 02:28:00 Abs. NRBC 0 k/mm3 09/24/23 02:28:00 Abs. Neut 8.8 k/mm3??High 09/24/23 02:28:00 Abs. Lymph 1.5 k/mm3 09/24/23 02:28:00 Abs. [place] 0.7 k/mm3 09/24/23 02:28:00 Abs. Eo 0.1 k/mm3 09/24/23 02:28:00 Abs. Baso 0.1 k/mm3 09/24/23 02:28:00 Neut % 78.9 %??High 09/24/23 02:28:00 Lymph % 13.8 %??Low 09/24/23 02:28:00 [place] % 5.9 % 09/24/23 02:28:00 Eos % 0.5 % 09/24/23 02:28:00 Baso % 0.5 % 09/24/23 02:28:00 Imm Gran 0.4 % 09/24/23 02:28:00 Abs. Imm Gran 0 k/mm3 09/24/23 02:28:00 ? Chemistry ? Event Name?? Event Result?? Date/Time?? Sodium 143 mmol/L 09/24/23 02:28:00 Potassium 3.9 mmol/L 09/24/23 02:28:00 Chloride 104 mmol/L 09/24/23 02:28:00 Bicarbonate Level 27 mmol/L 09/24/23 02:28:00 Anion Gap 12 09/24/23 02:28:00 Glucose Level 137 mg/dL??High 09/24/23 02:28:00 BUN 25 mg/dL??High 09/24/23 02:28:00 Creatinine-Blood 0.8 mg/dL 09/24/23 02:28:00 Estimated GFR Creatinine 113 ML/MIN/1.73 M2 09/24/23 02:28:00 Calcium 9.1 mg/dL 09/24/23 02:28:00 TSH 0.69 uIU/mL 09/24/23 02:28:00 Ethanol, Serum or Plasma NONE DETECTED 09/24/23 02:28:00 Barbiturate Screen, Urine NONE DETECTED 09/24/23 05:50:00 Cannabinoid Screen, Urine POSITIVE Abnormal 09/24/23 05:50:00 Cocaine Metabolite Screen, Urine POSITIVE Abnormal 09/24/23 05:50:00 Benzodiazepine Screen, Urine POSITIVE Abnormal 09/24/23 05:50:00 Amphetamine Screen, Urine NONE DETECTED 09/24/23 05:50:00 Opiate Screen, Urine NONE DETECTED 09/24/23 05:50:00 ? Microbiology ? Event Name?? Event Result?? Date/Time?? Influenza A PCR NEGATIVE 09/24/23 03:30:00 Influenza B PCR NEGATIVE 09/24/23 03:30:00 RSV PCR NEGATIVE 09/24/23 03:30:00 COVID-19 PCR Specimen Source NASAL 09/24/23 03:30:00 COVID-19 PCR Result NEGATIVE 09/24/23 03:30:00 ?ECG 12-Lead ?? 03:11:10 Please click on pdf link to open report ?? Signed By: Mohini Song DO ?? ECG 12-Lead ?? 03:11:10 Ventricular Rate: 77 BPM Atrial Rate: 77 BPM P-R Interval: 142 ms QRS Duration: 74 ms Q-T Interval: 378 ms QTC Calculation(Bazett): 427 ms P Keaton: 81 degrees R Keaton: 79 degrees T Keaton: 66 degrees Normal sinus rhythm Minimal voltage criteria for LVH, may be normal variant ( Sokolow-Rey ) Borderline ECG When compared with ECG of 29-AUG-2023 20:41, No significant change was found Confirmed by MOHINI SONG MD ([id number]) on 09/07/2023 10:32:08 AM ?? [place]: MOHINI SONG MD ?? Signed By: Mohini Song DO? Assessment:?? Depressive disorder unspecified Rule out SWMD Suicidal ideation Agitation Nonadherence to medication Posttraumatic stress disorder, chronic??by history Cocaine / stimulant use disorder, severe??by history Tobacco use disorder by history ? 25 minutes time spent on this consult included review of the patient's medical records, lab and/or imaging studies, medication profiles, writing chart notes, communicating with healthcare professionals, with 15 minutes of the service devoted to medical consultative discussion with the treating/requesting provider, Dr. Ml Durán. ?? Verona Bassett D.O.?? Fire Tower Keeper, Emergency Psychiatry Services Division of Consultation-Liaison Psychiatry Department of Psychiatry [facility]?? Note * America Cerrato DO: PERFORM, SIGN, VERIFY Event Display: Patient Education Handout Authored Date: Patient Care team information Care Team Personnel Name: Zander Xavier MD Position: [facility] Outreach Member Role: PCP Address: Address: [address] [place] [address]- Name: Paul Menon RN Position: [facility] RN Member Role: Primary Care Nurse Name: Maryanne Ny Position: [facility] RN Member Role: Primary Care Nurse Name: Melissa Pham RN Position: [facility] REYES Nurse Member Role: Primary Care Nurse Name: Su Lewis RN Position: [facility] RN Member Role: Primary Care Nurse Care Team Related Persons Name: TONY PATEL Address: [place] [address] Name: YULY HE Address: home [address] [place] [address]
--- OUTSIDE RECORDS SUMMARY | 2024-01-03 20:25 | XMS_ITS | Continuity of Care Document ---
Author Organization [facility] ter Address [address] [place] [address]- Care Team Providers Care Revenue Specialist Name Role Phone Kimberly Lockhart MD, Zander Primary Care Phys ician Encounter [facility] [place] Date(s): 07/19/21 - 07/19/[address] [address] Discharge Disposition: A-D/C Home Attending Physician: Dillan Childs MD Admitting Physician: Dillan Childs MD Referring Physician: Dillan Childs MD Allergies, Adverse Reactions, Alerts Substance Reaction Severity Status penicillin childhood allergy-unknown Ac tive SEROquel 1 disoriented and sleepy Activ e Avocado full body rash Active Haldol skin crawling Active 1patient states he [...] 1 Refills, Maintenance, 10/18/20 11:19:00 EDT, [facility], [id number], Partial fill upon patient request if the [...] opioid drug. Start Date: 02/06/21 Status: Ordered Tylenol 325 mg oral tablet 650 mg, 2, tablet, By Mouth, Every 4 hours, Scheduled not to exceed 4000 mg/day, # 120 tablet, Refills 0, Tot. Refills 0, Acute 08/02/21 12:00:00 EST, 07/19/21 13:09:00 EST, Route to Pharmacy Electronically, [facility] #[id number], Partial fill... Start Date: 07/19/21 Stop Date: 08/02/21 Status: Ordered Problem List Condition Effective Dates Status Health Status Inform ant Diabetes(Confirmed) Active Hypertension(Confirmed) Active Major depressive disorder(Confirmed) Active PTSD (post-traumatic stress disorder)(Confirmed) Active Tobacco use disorder(Confirmed) Active Vital Signs Most recent to oldest [Reference Range]: 1 2 3 Height 192 cm (07/19/21 8:25 AM) 192 cm (07/05/21 11:06 AM) Weight 85 kg (07/19/21 8:25 AM) 85 kg (07/05/21 11:06 AM) Oxygen Saturation [94-100 %] 97 % (07/19/21 12:00 PM) 98 % (07/19/21 11:45 AM) 100 % (07/19/21 11:30 AM) Pulse Rate [55-90 bpm] 66 bpm (07/19/21 8:25 AM) Body Mass Index [18.5-24.99] 23.06 (07/19/21 8:25 AM) 23.06 (07/05/21 11:06 AM) Blood Pressure [90-138/55-84 mm Hg] 127/83mm Hg (07/19/21 11:45 AM) 135/9mm Hg (07/19/21 11:30 AM) 129/94mm Hg (07/19/21 11:15 AM) Respiratory Rate [16-30 br/min] 14 br/min *L* (07/19/21 12:00 PM) 13 br/min *L* (07/19/21 11:45 AM) 12 br/min *L* (07/19/21 11:30 AM) Temperature [96.8-100.4 DegF] 98.4 DegF (07/19/21 12:00 PM) 97.6 DegF (07/19/21 11:00 AM) 97.9 DegF (07/19/21 8:25 AM) Liters per Minute 2 L/min (07/19/21 11:15 AM) 6 L/min (07/19/21 11:00 AM) Mode of Delivery (Oxygen) Room air (07/19/21 12:00 PM) Room air (07/19/21 11:45 AM) Room air (07/19/21 11:30 AM) Blood pressure sites Arm, left (07/19/21 11:00 AM) Arm, left (07/19/21 8:25 AM) Temperature Route Temporal (07/19/21 12:00 PM) Temporal (07/19/21 11:00 AM) Temporal (07/19/21 8:25 AM) Dry Weight 85 kg (07/19/21 8:25 AM) 85 kg (07/05/21 11:06 AM) Weight Obtained Via Standing scale (07/19/21 8:25 AM) Dry Weight Obtained Via Standing scale (07/19/21 8:25 AM) Patient/family stated (07/05/21 11:06 AM) Social History Social History Type Response Smoking Status Current every day brittany simms entered on: 12/03/17 Sex Medical Equipment Implanted Date:07/19/21Target Site:Pelvis Left Description Quantity MRI Company Model MESH VENTRALIGHT ECHO ELLIPS 4 - BARD ([id number]) 1 Bard Unknown QUYEN:{[id number] Assigning Author ity:FDA
--- OUTSIDE RECORDS SUMMARY | 2024-01-03 20:25 | XMS_ITS | Continuity of Care Document ---
Author Organization [facility] Address [address] [place] [address] [address] [place] [address]- Care Team Providers Care Transplant Surgeon Name Role Phone Kimberly Lockhart MD, Zander Primary Care Phys ician [place] [facility] [place] Date(s): 10/10/20 - 11/09/[address] [place], [place] [address] Attending Physician: Jacquelyn Ahmadi Admitting Physician: AdmJacquelyn burden Referring Physician: AdmtrJacquelyn Allergies, Adverse Reactions, Alerts Substance Reaction Severity [...] 10/18/20 11:18:00 EDT, [id number], Partial fill upon patient request if the prescription is for a schedule II opioid drug., 198, cm, 10/18/20 10:14:00 EDT... Start Date: 10/18/20 Status: Ordered lithium 300 mg oral tablet 2 tablet = 600 mg, By Mouth, Daily at bedtime, # 60 tablet, 1 Refills, Maintenance, 10/18/20 11:23:00 EDT, [facility][id number], Partial fill upon patient request if the [...] 1 Refills, Maintenance, 10/18/20 11:19:00 EDT, Tablet, [facility] #[id number], Partial fill upon patient request if the prescriptionis for a schedule II opioid drug., 198, melody, ... Start Date: 10/18/20 Status: Ordered multivitamin with minerals Vitamin D with Minerals oral tablet 1 tablet, By Mouth, Daily, # 30 tablet, 1 Refills, Maintenance, 10/31/20 10:35:00 EDT, Capsule, [facility] #[id number], Partial fill upon patient request if the prescription is for a schedule IIopioid drug., 1 tablet By Mouth Daily, 193, cm, ... Start Date: 10/31/20 Status: Ordered olanzapine 5 mg oral tablet 5 mg, 1, tablet, By Mouth, 2 times a day, # 60 tablet, Refills 1, Tot. Refills 1, Maintenance, 10/31/20 10:35:00 EDT, Route to Pharmacy Electronically, [facility] #[id number], Partial fill upon patient request if the [...] 10/18/20 11:21:00 EDT, Route to Pharmacy Electronically, [facility] #[id number], Partial fill upon patient request if the [...]
--- OUTSIDE RECORDS SUMMARY | 2024-01-03 20:25 | XMS_ITS | Continuity of Care Document ---
Author Organization [facility] Address Unknown Care Team Providers Care Intervention Nurse Name Role Phone Zander Xavier MD Primary Care Phys ician Encounter [facility] [place] Date(s): 08/02/21 - 08/09/21 [facility] Encounter Diagnosis Left inguinal hernia(Discharge Diagnosis) - 08/02/21 Umbilical hernia(Discharge Diagnosis) - 08/02/21 Postop check(Discharge Diagnosis) - 08/02/21 Attending Physician: Ari Davison Referring Physician: Zander Xavier MD Allergies, Adverse [...] 1 Refills, Maintenance, 10/18/20 11:19:00 EDT, Tablet, [id number], Partial fill upon patient request if the prescriptionis for a schedule II opioid drug., 198, cm, 2... Start Date: 10/18/20 Status: Ordered olanzapine 2.5 [...] stress disorder)(Confirmed) Active Tobacco use disorder(Confirmed) Active Diagnosis Diagnosis Type Effective Dates Health Status Cl inical Service Informant Left inguinal hernia Discharge Diagnosis 08/02/21 Umbilical hernia Discharge Diagnosis 08/02/21 Postop check Discharge Diagnosis 08/02/21 Vital Signs Most recent to oldest [Reference Range]: 1 Height 192 cm (08/02/21 2:09 PM) Weight 89.2 kg (08/02/21 2:09 PM) Pulse Rate [55-90 bpm] 89 bpm (08/02/21 2:09 PM) Body Mass Index [18.5-24.99] 24.2 (08/02/21 2:09 PM) Blood Pressure [90-138/55-84 mm Hg] 121/ 80mm Hg (08/02/21 2:09 PM) Temperature [96.8-100.4 DegF] 98.9 DegF (08/02/21 2:09 PM) Blood pressure sites Arm, left (08/02/21 2:09 PM) Temperature Route Temporal (08/02/21 2:09 PM) Weight Obtained Via Standing scale (08/02/21 2:09 PM) Social History Social History Type Response Smoking Status Current every day brittany simms entered on: 12/03/17 Sex Medical Equipment Implanted Date:07/19/21Target Site:Pelvis Left Description Quantity MRI Company Model MESH VENTRALIGHT ECHO ELLIPS 4 - BARD ([id number]) 1 Bard Unknown QUYEN:{01}[id number] Assigning Author ity:LETICIA
--- OUTSIDE RECORDS SUMMARY | 2024-01-03 20:25 | XMS_ITS | Continuity of Care Document ---
Author Organization [facility] Address [address] [place] [address]- Care Team Providers Care Accounts Payable Accountant Name Role Phone Kimberly Lockhart MD, Zander Primary Care Phys ician Encounter [facility] [place] Date(s): 02/06/21 - 02/09/21 [facility] [address] [place] [address]- Discharge Disposition: A-D/C Home Attending Physician: Martínez Matthew MD Admitting Physician: Miguel A PAINTING, Lolly Cameron Referring Physician: Not on Staff, Referring MD [...] tablet, 1 Refills, Maintenance, 10/18/20 11:23:00 EDT, [facility] #[id number], Partial fill upon patient request if the [...] 1 Refills, Maintenance, 10/18/20 11:19:00 EDT, Tablet, [facility] #[id number], Partial fill upon patient request if the prescriptionis for a schedule II opioid drug., 198, cm, 2... Start Date: 10/18/20 Status: Ordered multivitamin with minerals Vitamin D with Minerals oral tablet 1 tablet, By Mouth, Daily, # 30 tablet, 1 Refills, Maintenance, 10/31/20 10:35:00 EDT, Capsule, [facility] #[id number], Partial fill upon patient request if the prescription is for a schedule IIopioid drug., 1 tablet By Mouth Daily, 193, cm, ... Start Date: 10/31/20 Status: Ordered nicotine 14 mg/24 hr transdermal film, extended release 1 patch, Topically, Daily, # 30 patch, 1 Refills, Maintenance, 02/09/21 10:23:00 EDT, Patch, [facility] #[id number], Partial fill upon patient request if the prescription is for a schedule II opioid drug., 1 patch Topically Daily, 196, cm, ... Start Date: 02/09/21 Status: Ordered nicotine 2 mg oral transmucosal gum = 2 mg, Chew, Every 15 minutes, PRN Other, Cigarette craving. Not to exceed 30 doses in 24 hours, #160 each, 1 Refills, Maintenance, 02/09/21 10:22:00 EDT, Gum, [facility] #[id number], Partial fill upon patient request if the prescription is fo... Start Date: 02/09/21 Status: Ordered olanzapine 2.5 mg oral tablet 2.5 mg, 1, tablet, By Mouth, Daily, PRN, Refills 0, Maintenance, Anxiety, 02/06/21 14:34:00 EDT, Partial fill upon patient request if the prescription is for a schedule II opioid drug. Start Date: 02/06/21 Status: Ordered prazosin 5 mg oral capsule 5 mg, Capsule, By Mouth, 02/08/21 21:00:00 EDT Start Date: 02/08/21 Stop Date: 02/08/21 Status: Completed prazosin 5 mg oral capsule 5 mg, [...] Exam Date Time Procedure Performing Provider Status 02/05/21 10:45 PM Chest 2 Views Frontal and Lat Short , Ying; Auth (Verified) Notes: (Chest 2 Views Frontal and Lat) Reason For Exam: Other: RESULT: Chest 2 Views Frontal and Lat Chest 2 Views Frontal and Lat Hx of Present Illness: Patient reports being very depressed, endorses SI, wants to hang himself; Reason: Other:; Clinical Question(s): CHF COMPARISON: 12/22/2020 FINDINGS: LINES AND TUBES: None. LUNGS AND PLEURA: Bullous changes in the right upper hemithorax. Emphysema. No consolidation or overt pulmonary edema. HEART, MEDIASTINUM AND FREIDA: Unchanged. BONES AND SOFT TISSUES: No acute abnormality. IMPRESSION: No acute abnormality. Emphysematous and bullous changes as described. WSN: [id number] Ordering Physician: Gustabo Silva Dictated By: Shailesh Roberts MD Dictated Date/Time: 02/05/21 10:49 p Reviewed By: Shailesh Roberts MD Signed By: Shailesh Roberts MD Signed Date/Time: 02/05/21 10:49 pm Transcribed By: KENYETTA Transcribed Date/Time: 02/05/21 10:47 pm Vital Signs Most recent to oldest [Reference Range]: 1 2 3 Height 196 cm (02/09/21 9:00 AM) 196 cm (02/08/21 8:46 PM) 196 cm (02/08/21 7:42 AM) Weight 73 kg (02/06/21 3:12 PM) 73 kg (02/06/21 6:28 AM) 73 kg (02/05/21 9:32 PM) Oxygen Saturation [94-100 %] 100 % (02/09/21 9:00 AM) 100 % (02/08/21 8:46 PM) 99 % (02/08/21 7:42 AM) Pulse Rate [55-90 bpm] 69 bpm (02/09/21 9:00 AM) 70 bpm (02/08/21 8:46 PM) 73 bpm (02/08/21 7:42 AM) Body Mass Index [18.5-24.99] 19 (02/06/21 3:12 PM) 19 (02/06/21 6:28 AM) Blood Pressure [90-138/55-84 mm Hg] 112/67mm Hg (02/09/21 9:00 AM) 116/75mm Hg (02/08/21 8:46 PM) 116/75mm Hg (02/08/21 8:16 PM) Respiratory Rate [16-30 br/min] 16 br/min (02/09/21 9:00 AM) 16 br/min (02/09/21 8:00 AM) 18 br/min (02/08/21 8:46 PM) Temperature [96.8-100.4 DegF] 97.1 DegF (02/09/21 9:00 AM) 98.6 DegF (02/08/21 8:46 PM) 97.8 DegF (02/08/21 7:42 AM) Mode of Delivery (Oxygen) Room air (02/09/21 9:00 AM) Room air (02/08/21 8:46 PM) Room air (02/07/21 7:20 PM) Blood pressure sites Arm, left (02/08/21 8:46 PM) Arm, left (02/08/21 7:42 AM) Arm, right (02/06/21 8:59 PM) Temperature Route Tympanic (02/08/21 8:46 PM) Tympanic (02/08/21 7:42 AM) Tympanic (02/07/21 7:20 PM) Dry Weight 73 kg (02/06/21 3:12 PM) 73 kg (02/06/21 6:28 AM) 73 kg (02/05/21 9:32 PM) Sensory deficits None (02/06/21 3:12 PM) Social History Social History Type Response Smoking Status Current every day brittany simms entered on: 12/03/17 Sex
--- OUTSIDE RECORDS SUMMARY | 2024-01-03 20:25 | XMS_ITS | Continuity of Care Document ---
Author Organization [facility] Address [address] [place] [address]- Care Team Providers Care Bunk House Worker Name Role Phone Kimberly Lockhart MD, Zander Primary Care Phys [facility] Encounter [facility] Date(s): 11/22/20 - 12/22/20 [facility] [address], [place] [address] Attending Physician: Jacquelyn Ahmadi Admitting Physician: AdmJacquelyn burden Referring Physician: Admtr, Obed8 Allergies, Adverse Reactions, Alerts Substance Reaction Severity [...] 10/18/20 11:18:00 EDT, [facility][id number], Partial fill upon patient request if the prescription is for a schedule II opioid drug., 198, cm, 10/18/20 10:14:00 EDT... Start Date: 10/18/20 Status: Ordered lithium 300 mg oral tablet 2 tablet = 600 mg, By Mouth, Daily at bedtime, # 60 tablet, 1 Refills, Maintenance, 10/18/20 11:23:00 EDT, [facility] #[id number], Partial fill upon patient request if the [...] 1 Refills, Maintenance, 10/18/20 11:19:00 EDT, Tablet, [facility] #[id number], Partial fill upon patient request if the prescriptionis for a schedule II opioid drug., 198, cm, ... Start Date: 10/18/20 Status: Ordered multivitamin with minerals Vitamin D with Minerals oral tablet 1 tablet, By Mouth, Daily, # 30 tablet, 1 Refills, Maintenance, 10/31/20 10:35:00 EDT, Capsule, [facility] #[id number], Partial fill upon patient request if the prescription is for a schedule IIopioid drug., 1 tablet By Mouth Daily, 193, cm, ... Start Date: 10/31/20 Status: Ordered olanzapine 5 mg oral tablet 5 mg, 1, tablet, By Mouth, 2 times a day, # 60 tablet, Refills 1, Tot. Refills 1, Maintenance, 10/31/20 10:35:00 EDT, Route to Pharmacy Electronically, [facility] #[id number], Partial fill upon patient request if the [...] 10/18/20 11:21:00 EDT, Route to Pharmacy Electronically, [facility] #[id number], Partial fill upon patient request if the [...]
--- OUTSIDE RECORDS SUMMARY | 2024-01-03 20:25 | XMS_ITS | Continuity of Care Document ---
Author Organization [facility] ter Address [address] [place] [address]- Care Team Providers Care Expediter Service Order Name Role Phone Kimberly Lockhart MD, Zander Primary Care Phys ician Encounter [facility] [place] Date(s): 06/12/20 - 06/12/[address] [address]- Encounter Diagnosis Viral illness(Final) - 06/12/20 Exposure to COVID-19 virus(Final) - 06/12/20 Discharge Disposition: A-D/C Home Attending Physician: Durga [...] 2 Refills, Maintenance, 02/11/20 11:03:00 EDT, Tablet, [facility] #[id number], 195, cm, 02/11/20 8:06:00 EDT, Height, 74.84, kg, 02/04/20 16:58:00EDT, Dry Weight Start Date: 02/11/20 Stop Date: 03/24/20 Status: Ordered lithium 600 mg oral capsule = 600 mg, By Mouth, 2 times a day, # 28 capsule, 2 Refills, Maintenance, 02/11/20 11:01:00 EDT, Capsule, [facility] #[id number], 195, cm, 02/11/20 8:06:00 EDT, Height, 74.84, kg, 02/04/20 16:58:00 EDT, Dry Weight Start Date: 02/11/20 Stop Date: 03/24/20 Status: Ordered mirtazapine 15 mg oral tablet 0.5 tablet = 7.5 mg, By Mouth, Daily at bedtime, # 15 tablet, 1 Refills, Maintenance, 02/11/20 11:04:00 EDT, Tablet, [facility] #[id number], 195, cm, 02/11/20 8:06:00 EDT, Height, 74.84, [...] 1 Refills, Maintenance, 02/11/20 11:02:00 EDT, Capsule, [facility] #[id number], 195, cm, 02/11/20 8:06:00 EDT, Height, 74.84, kg, 02/04/20 16:58:00 EDT, Dry Weight Start Date: 02/11/20 Stop Date: 03/10/20 Status: Ordered traZODone 50 mg oral tablet 50 mg, 1, tablet, By Mouth, Daily at bedtime, PRN, # 30 tablet, Refills 0, Tot. Refills 0, Maintenance, Insomnia, 02/11/20 11:03:00 EDT, Route to Pharmacy Electronically, [facility] #[id number],195, cm, 02/11/20 8:06:00 EDT, Height, 74.84, kg, [...] 3 Oxygen Saturation [94-100 %] 99 % (06/12/20 1:34 PM) 100 % (06/12/20 12:08 PM) 97 % (06/12/20 11:43 AM) Pulse Rate [55-90 bpm] 84 bpm (06/12/20 1:34 PM) 61 bpm (06/12/20 12:08 PM) 77 bpm (06/12/20 11:43 AM) Blood Pressure [90-138/55-84 mm Hg] 104/60mm Hg (06/12/20 1:34 PM) 105/62mm Hg (06/12/20 12:08 PM) Respiratory Rate [16-30 br/min] 18 br/min (06/12/20 1:34 PM) 16 br/min (06/12/20 12:08 PM) 18 br/min (06/12/20 11:43 AM) Temperature [96.8-100.4 DegF] 97.6 DegF (06/12/20 1:34 PM) 97.8 DegF (06/12/20 12:08 PM) Mode of Delivery (Oxygen) Room air (06/12/20 1:34 PM) Room air (06/12/20 12:08 PM) Room air (06/12/20 11:43 AM) Blood pressure sites Arm, left (1/11/21 1:34 PM) Arm, left (06/12/20 12:08 PM) Temperature Route Oral (06/12/20 1:34 PM) Oral (06/12/20 12:08 PM) Social History Social History Type Response Smoking Status Current every day brittany simms entered on: 12/03/17 Sex
--- OUTSIDE RECORDS SUMMARY | 2024-01-03 20:25 | XMS_ITS | Continuity of Care Document ---
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 Tie In Machine Operator Name Role Phone Kimberly Lockhart MD, Zander Primary Care Phys ician En[place] [facility] [place] Date(s): 08/05/23 - 08/05/[address] [address]- Encounter Diagnosis Abdominal pain with vomiting(Final) - 08/05/23 Discharge Disposition: A-D/C Home Attending Physician: Cj [...] 14:50:00 EST, DIS Tablet, [facility] #[id number], Partial fill upon patient request if the [...] Exam Date Time Procedure Performing Provider Status 08/05/23 10:35 AM Chest 2 Views Frontal and Lat Rosette Dennis (Verified) Notes: (Chest 2 Views Frontal and Lat) Reason For Exam: Cough RESULT: Chest 2 Views Frontal and Lat Examination: Chest performed on 08/05/2023. History: Cough and bodyaches. Findings: Frontal and lateral views of the chest are compared to a prior study dated 05/16/2023. The cardiac and mediastinal silhouettes are within normal limits. Emphysematous changes are noted with bullous disease of the right upper lobe. The lungs are clear. The osseous and soft tissue structures are unremarkable. Impression: There is no acute cardiopulmonary disease. COPD. WSN: [id number] Ordering Physician: Miguel Angel Cortez Dictated By: Beatriz Iqbal MD Dictated Date/Time: 08/05/23 10:41 a Reviewed By: Beatriz Iqbal MD Signed By: Beatriz Iqbal MD Signed Date/Time: 08/05/23 10:41 am Transcribed By: KENYETTA Transcribed Date/Time: 08/05/23 10:41 am Vital Signs Most recent to oldest [Reference Range]: 1 2 3 Height 196 cm (08/05/23 12:15 PM) 196 cm (08/05/23 8:06 AM) 196 cm (08/05/23 8:03 AM) Oxygen Saturation [94-100 %] 99 % (08/05/23 3:00 PM) 99 % (08/05/23 12:15 PM) 97 % (08/05/23 8:03 AM) Pulse Rate [55-90 bpm] 65 bpm (08/05/23 3:00 PM) 65 bpm (08/05/23 12:15 PM) 75 bpm (08/05/23 8:03 AM) Blood Pressure [90-138/55-84 mm Hg] 110/60mm Hg (08/05/23 3:00 PM) 99/60mm Hg (08/05/23 12:15 PM) 108/66mm Hg (08/05/23 8:03 AM) Respiratory Rate [16-30 br/min] 18 br/min (08/05/23 3:00 PM) 18 br/min (08/05/23 12:15 PM) 22 br/min (08/05/23 8:03 AM) Temperature [96.8-100.4 DegF] 98.8 DegF (08/05/23 8:03 AM) Mode of Delivery (Oxygen) Room air (08/05/23 3:00 PM) Room air (08/05/23 12:15 PM) Room air (08/05/23 8:03 AM) Blood pressure sites Arm, left (08/05/23 8:03 AM) Temperature Route Oral (08/05/23 8:03 AM) Dry Weight 68.4 kg (08/05/23 12:15 PM) 68.4 kg (08/05/23 8:06 AM) 68.4 kg (08/05/23 8:03 AM) Dry Weight Obtained Via Patient/family s tated (08/05/23 8:03 AM) Social History Social History Type Response Smoking Status Never (less than 100 in lifetime) entered on: 08/31/21 Sex Implantable Device List Procedure Provider Procedure Date Device Type Site Repair Hernia Inguinal Laparoscopic Dillan Childs MD 07/19/21 Unknown Pelvis Left Device Identifier Serial Number Lot or Batch Number Manufacturing Date Expiration Date Distinct Identification Code MRI Safety Implantable Status Assigning Authority [id number] Unknown [id number] Unknown 01/27/23 Unknown Unknown Active GS1 EKG study * Event Display: ECG 12-Lead Authored Date: Please click on pdf link to open report * Event Display: ECG 12-Lead Authored Date: Ventricular Rate: 77 BPM Atrial Rate: 77 BPM P-R Interval: 130 ms QRS Duration: 84 ms Q-T Interval: 338 ms QTC Calculation(Bazett): 382 ms P [place]: -15 degrees R [place]: -20 degrees T [place]: -12 degrees Normal sinus rhythm Moderate voltage criteria for LVH, may be normal variant ( R in aVL , Tigre product ) Borderline ECG When compared with ECG of 31-AUG-2021 11:58, Questionable change in QRS axis ST no longer depressed in Inferior leads T wave inversion less evident in Inferior leads QT has shortened Confirmed by GABRIELLE CRAIG MD ([id number]) on 08/05/2023 7:56:28 PM [place]: GABRIELLE CRAIG MD Patient Care team information Care Team Personnel Name: Kimberly Lockhart MD, Zander Position: S Outreach Member Role: PCP Address: Address: [address] [place] [address]- Name: Paul Menon RN Position: S RN Member Role: Primary Care Nurse Name: Maryanne Ny Position: S RN Member Role: Primary Care Nurse Name: Melissa Pham RN Position: [facility] AMB Nurse Member Role: Primary Care Nurse Name: Su Lewis RN Position: S RN Member Role: Primary Care Nurse Care Team Related Persons Name: TONY PATEL Address: [place] [address] Name: YULY HE Address: home [address] [place] [address]
--- OUTSIDE RECORDS SUMMARY | 2024-01-03 20:26 | XMS_ITS | Continuity of Care Document ---
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 Name Role Phone Kimberly Lockhart MD, Zander Primary Care Phys ician Encounter [facility] [place] Date(s): 07/17/23 - 07/17/23 [facility] [address] [place] [address]- Discharge Disposition: A-D/C Walkout Attending Physician: Not on Staff, Attending MD Admitting Physician: Not on Staff, Admitting MD Referring Physician: Not on Staff, Referring [...] 1 Oxygen Saturation [94-100 %] 97 % (07/17/23 5:21 PM) Pulse Rate [55-90 bpm] 91 bpm *H* (07/17/23 5:21 PM) Blood Pressure [90-138/55-84 mm Hg] 142/ 100mm Hg *H* (07/17/23 5:21 PM) Respiratory Rate [16-30 br/min] 20 br/mi n (07/17/23 5:21 PM) Temperature [96.8-100.4 DegF] 98.0 DegF (07/17/23 5:21 PM) Mode of Delivery (Oxygen) 142 (07/17/23 5:21 PM) Blood pressure sites Arm, left (07/17/23 5:21 PM) Temperature Route Oral (07/17/23 5:21 PM) Social History Social History Type Response Smoking Status Never (less than 100 in lifetime) entered on: 08/31/21 Sex Implantable Device List Procedure Provider Procedure Date Device Type Site Repair Hernia Inguinal Laparoscopic Dillan Childs MD 07/19/21 Unknown Pelvis Left Device Identifier Serial Number Lot or Batch Number Manufacturing Date Expiration Date Distinct Identification Code MRI Safety Implantable Status Assigning Authority [id number] Unknown [id number] Unknown 01/27/23 Unknown Unknown Active GS1 Patient Care team information Care Team Personnel Name: Zander Xavier MD Position: [facility] Outreach Member Role: PCP Address: Address: [address] [place] [id number] Name: Paul Menon RN Position: [facility] RN Member Role: Primary Care Nurse Name: Maryanne Ny Position: S RN Member Role: Primary Care Nurse Name: Melissa Pham RN Position: [facility] Nurse Member Role: Primary Care Nurse Name: Su Lewis RN Position: [facility] RN Member Role: Primary Care Nurse Care Team Related Persons Name: TONY PATEL Address: [place] [address] Name: YULY HE Address: home [address] [place] [address]
--- OUTSIDE RECORDS SUMMARY | 2024-01-03 20:26 | XMS_ITS | Continuity of Care Document ---
Author Organization [facility] Address [address] [place] [address]- Care Team Providers Care Bread Packer Name Role Phone Kimberly Lockhart MD, Zander Primary Care Phys ician Encounter [facility] [place] Date(s): 06/30/20 - 07/30/20 [facility] [address] [place] [address] Allergies, Adverse Reactions, Alerts Substance Reaction Severity [...] 0 Refills, Maintenance, 06/26/20 16:12:00 EST, Tablet, [facility] #[id number], Partial fill upon patient request if the prescription is for a schedule II opioid drug.,... Start Date: 06/26/20 Status: Ordered Lexapro 20 mg oral tablet 1 tablet = 20 mg, By Mouth, Daily, # 14 tablet, 2 Refills, Maintenance, 02/11/20 11:03:00 EDT, Tablet, [facility] #[id number], 195, cm, 02/11/20 8:06:00 EDT, Height, 74.84, kg, 02/04/20 16:58:00EDT, Dry Weight Start Date: 02/11/20 Stop Date: 03/24/20 Status: Ordered lithium 600 mg oral capsule = 600 mg, By Mouth, 2 times a day, # 28 capsule, 2 Refills, Maintenance, 02/11/20 11:01:00 EDT, Capsule, [facility] #[id number], 195, cm, 02/11/20 8:06:00 EDT, Height, 74.84, kg, 02/04/20 16:58:00 EDT, Dry Weight Start Date: 02/11/20 Stop Date: 03/24/20 Status: Ordered mirtazapine 15 mg oral tablet 0.5 tablet = 7.5 mg, By Mouth, Daily at bedtime, # 15 tablet, 1 Refills, Maintenance, 02/11/20 11:04:00 EDT, Tablet, [facility] #[id number], 195, cm, 02/11/20 8:06:00 EDT, Height, 74.84, [...] 1 Refills, Maintenance, 02/11/20 11:02:00 EDT, Capsule, [facility] #42701, 195, cm, 02/11/20 8:06:00 EDT, Height, 74.84, kg, 02/04/20 16:58:00 EDT, Dry Weight Start Date: 02/11/20 Stop Date: 03/10/20 Status: Ordered sucralfate 1 gm oral tablet 1 Gm, 1, tablet, By Mouth, 2 times a day, on an empty stomach, # 180 tablet, Refills 0, Tot. Refills 0, Maintenance, 06/26/20 16:12:00 EST, Route to Pharmacy Electronically, [facility] #[id number], Partial fill upon patient request if the prescri... Start Date: 06/26/20 Status: Ordered traZODone 50 mg oral tablet 50 mg, 1, tablet, By Mouth, Daily at bedtime, PRN, # 30 tablet, Refills 0, Tot. Refills 0, Maintenance, Insomnia, 02/11/20 11:03:00 EDT, Route to Pharmacy Electronically, [facility] #[id number],195, cm, 02/11/20 8:06:00 EDT, Height, 74.84, kg, 0... Start Date: 02/11/20 Stop Date: 03/12/20 Status: Ordered Zofran 4 mg oral tablet 1 tablet = 4 mg, By Mouth, Every 8 hours, PRN Nausea & Vomiting, # 20 tablet, 0 Refills, Maintenance, 06/26/20 16:12:00 EST, Tablet, [facility] #[id number], Partial fill upon patient requestif the prescription [...]
--- OUTSIDE RECORDS SUMMARY | 2024-01-03 20:26 | XMS_ITS | Continuity of Care Document ---
Author Organization [facility] Address [address] [place] [address]- Care Team Providers Care Ccnp Name Role Phone Kimberly Lockhart MD, Zander Primary Care Phys ician [place] [facility] [place](s): 07/09/21 - 08/08/21 [facility] [address] [place], [place] [address] Attending Physician: Jacquelyn Ahmadi Admitting Physician: AdmtrJacquelyn Referring Physician: AdmtrJacquelyn Allergies, Adverse Reactions, Alerts [...] 1 Refills, Maintenance, 10/18/20 11:19:00 EDT, Tablet, [facility] #[id number], Partial fill upon patient request if the [...] MESH VENTRALIGHT ECHO ELLIPS 4 - BARD ([id number]) 1 Bard Unknown QUYEN:{01}[id number] Assigning Author ity:FDA
--- OUTSIDE RECORDS SUMMARY | 2024-01-03 20:26 | XMS_ITS | Continuity of Care Document ---
Author Organization [facility] ter Address [address] [place] [address]- Care Team Providers Care Examination Grader Name Role Phone Kimberly Lockhart MD, Zander Primary Care Phys ician [place] [facility] [place] Date(s): 11/03/20 - 11/06/[address] [address]- Encounter Diagnosis Depression(Final) - 11/03/20 Discharge Disposition: A-D/C Home Attending Physician: Shahbaz Kearney MD Admitting Physician: Shahbaz Kearney MD Referring Physician: Not on Staff, Referring [...] 1 Refills, Maintenance, 10/18/20 11:18:00 EDT, Tablet, [facility] #[id number], Partial fill upon patient request if the prescription is for a schedule II opioid drug., 198, cm, 10/18/20 10:14:00 EDT... Start Date: 10/18/20 Status: Ordered lithium 300 mg oral tablet 2 tablet = 600 mg, By Mouth, Daily at bedtime, # 60 tablet, 1 Refills, Maintenance, 10/18/20 11:23:00 EDT, [facility] #[id number], Partial fill upon patient request if the [...] 1 Refills, Maintenance, 10/18/20 11:19:00 EDT, Tablet, [facility] #59029, Partial fill upon patient request if the prescriptionis for a schedule II opioid drug., 198, melody, 2... Start Date: 10/18/20 Status: Ordered multivitamin with minerals Vitamin D with Minerals oral tablet 1 tablet, By Mouth, Daily, # 30 tablet, 1 Refills, Maintenance, 10/31/20 10:35:00 EDT, Capsule, [facility] #20855, Partial fill upon patient request if the prescription is for a schedule IIopioid drug., 1 tablet By Mouth Daily, 193, cm, ... Start Date: 10/31/20 Status: Ordered olanzapine 5 mg oral tablet 5 mg, 1, tablet, By Mouth, 2 times a day, # 60 tablet, Refills 1, Tot. Refills 1, Maintenance, 10/31/20 10:35:00 EDT, Route to Pharmacy Electronically, [facility] #[id number], Partial fill upon patient request if the [...] 10/18/20 11:21:00 EDT, Route to Pharmacy Electronically, [facility] #[id number], Partial fill upon patient request if the prescription is for a schedul... Start Date: 10/18/20 Status: Ordered Problem List Condition Effective Dates Status Health Status Inform ant Diabetes(Confirmed) Active Hypertension(Confirmed) Active Major depressive disorder(Confirmed) Active PTSD (post-traumatic stress disorder)(Confirmed) Active Tobacco use disorder(Confirmed) Active Vital Signs Most recent to oldest [Reference Range]: 1 2 3 Oxygen Saturation [94-100 %] 100 % (11/06/20 3:32 AM) 100 % (11/05/20 3:32 PM) 99 % (11/05/20 7:05 AM) Pulse Rate [55-90 bpm] 74 bpm (11/06/20 3:32 AM) 75 bpm (11/05/20 3:32 PM) 87 bpm (11/05/20 7:05 AM) Blood Pressure [90-138/55-84 mm Hg] 109/76mm Hg (11/06/20 3:32 AM) 144/90mm Hg *H* (11/05/20 3:32 PM) 114/68mm Hg (11/05/20 7:05 AM) Respiratory Rate [16-30 br/min] 16 br/min (11/06/20 3:32 AM) 20 br/min (11/05/20 3:32 PM) 18 br/min (11/05/20 7:05 AM) Temperature [96.8-100.4 DegF] 97.7 DegF (11/06/20 3:32 AM) 98.6 DegF (11/05/20 3:32 PM) 97.7 DegF (11/04/20 11:49 PM) Mode of Delivery (Oxygen) Room air (11/06/20 3:32 AM) Room air (11/05/20 3:32 PM) Room air (11/05/20 7:05 AM) Blood pressure sites Arm, right (11/06/20 3:32 AM) Arm, right (11/05/20 7:05 AM) Arm, right (11/04/20 11:49 PM) Temperature Route Oral (11/06/20 3:32 AM) Oral (11/05/20 3:32 PM) Oral (11/04/20 11:49 PM) Social History Social History Type Response Smoking Status Current every day brittany simms entered on: 12/03/17 Sex
--- OUTSIDE RECORDS SUMMARY | 2024-01-03 20:26 | XMS_ITS | Continuity of Care Document ---
Author Organization [facility] Address [address] [place] [address]- Care Team Providers Care Strategic Marketing Manager Name Role Phone Kimberly Lockhart MD, Zander Primary Care Phys ician Encounter [facility] ACCT R [id number] Date(s): 08/21/20 - 09/20/20 [facility] [address], [place] [address] Attending Physician: Jacquelyn Ahmadi Admitting Physician: [...] 2 Refills, Maintenance, 02/11/20 11:03:00 EDT, Tablet, [facility] #[id number], 195, cm, 02/11/20 8:06:00 EDT, Height, 74.84, kg, 02/04/20 16:58:00EDT, Dry Weight Start Date: 02/11/20 Stop Date: 03/24/20 Status: Ordered lithium 600 mg oral capsule = 600 mg, By Mouth, 2 times a day, # 28 capsule, 2 Refills, Maintenance, 02/11/20 11:01:00 EDT, Capsule, [facility] #[id number], 195, cm, 02/11/20 8:06:00 EDT, Height, 74.84, kg, 02/04/20 16:58:00 EDT, Dry Weight Start Date: 02/11/20 Stop Date: 03/24/20 Status: Ordered mirtazapine 15 mg oral tablet 0.5 tablet = 7.5 mg, By Mouth, Daily at bedtime, # 15 tablet, 1 Refills, Maintenance, 02/11/20 11:04:00 EDT, Tablet, [facility] #[id number], 195, cm, 02/11/20 8:06:00 EDT, Height, 74.84, [...] each, 0 Refills, Maintenance, 08/29/20 13:16:00 EDT, [facility] #[id number], Ok to sub for any gallon prep, as directed, 198, cm, 04/05/20 8:30:00 EST, Height,76, kg, 04/05/20 8:30:00 EST, Dry Weight Start Date: 08/29/20 Status: Ordered sucralfate 1 gm oral tablet 1 Gm, 1, tablet, By Mouth, 2 times a day, on an empty stomach, # 180 tablet, Refills 0, Tot. Refills 0, Maintenance, 06/26/20 16:12:00 EST, Route to Pharmacy Electronically, [facility] #[id number], Partial fill upon patient request if the prescri... Start Date: 06/26/20 Status: Ordered Suprep Bowel Prep Kit oral liquid See Instructions, drink 1 bottle around 6pm day before procedure, drink second bottle morning of procedure but complete at least 4 hours prior to procedure., # 1 each, 0 Refills, Maintenance, 08/21/20 9:17:00 EDT, [id number], Partial... Start Date: 08/21/20 Status: Ordered ZyPREXA [...]
[2024-01-03 20:59] VITALS: BP 112/76; PULSE 61; RESP 20; TEMP 37; O2SAT 96
[2024-01-03 21:01] VITALS: BMI 15.8
[2024-01-03 21:47] LABS: Glucose, Whole Blood 114 mg/dL (60-115)
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
[2024-01-04] MEDS: Omeprazole 20 MG CAPSULE.DR PO (07:05)
[2024-01-04 08:00] VITALS: BP 100/61; PULSE 42; RESP 16; TEMP 36.9; O2SAT 99
[2024-01-04] MEDS: Escitalopram Oxalate 10 MG TABLET PO (08:21)
[2024-01-04] MEDS: Gabapentin 400 MG CAPSULE 800 MG PO ×2 (08:21→15:58)
[2024-01-04] MEDS: ARIPiprazole 5 MG TABLET PO (08:21)
[2024-01-04 08:22] LABS: Glucose, Whole Blood 99 mg/dL (60-115)
[2024-01-04 08:26] VITALS: BP 100/61
[2024-01-04] MEDS: Nicotine 21 MG PATCH.TD24 TRANSDERMA (08:36)
[2024-01-04] MEDS: Topiramate 25 MG TABLET PO (08:36)
--- NOTE | 2024-01-04 08:43 | P.HPPS_ITS ---
HPI Date of Service: 01/04/24 Chief Complaint: depression Sources of Information: patient interviewed, chart reviewed and crisis/core team assessment reviewed HPI Subjective Notes: Conditional Voluntary Narrative: Met with patient. Discussed with nursing. Reviewed transfer information from [facility]. Overall patient reports that he wants to get back on his medications which include Lexapro and Abilify. Reports wanting to feel better and not use crack cocaine. Has been suicidal. No clear plans or intent, though does report yesterday running out in front of traffic and Banging his head. Reports sleep has been broken. Decreased energy and appetite. Denies hallucinations. Has been using crack cocaine most days. Reports recently section 35 in himself to [place] and discharged around 1 month ago. Reports having [facility] services and would like treatment team to connect with [facility] vocational rehabilitation teacher around potential programming that they have been working on. Otherwise has been homeless for the last month. Denied legal issues. Regarding medications reports would like to go back on Lexapro, Abilify. Was very clear he does not take lithium for over 10 years, despite that being on transfer paperwork from [facility]. Reports that he has been toxic on this 4 times. Also reports ultimate goal is rehab programming and services that they are working on with [facility]. Otherwise labs were unremarkable as per transfer paperwork and tox positive for cocaine. EKG unremarkable. Past Psychiatric History: Reports multiple admissions in the past and multiple suicide attempts. Reports the last was trying to run in front of traffic yesterday. Connected with [facility] services and would like treatment team to engage with same. Diagnosis of depression and PTSD and cocaine use disorder. Recent section 35 himself to [place] and discharged on month ago. Has a history of 18 years sobriety in his 20s. Medical Evaluation Reviewed: Hospitalist Cezar Pending [facility] Narrative: Patient clear he does not have diabetes. Reports in the past he was told he was prediabetic. Does not want blood sugar testing etc. Social History: Homeless for 1 month. Single. Twenty[age]four year year old child. No legal issues. 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 Ninth grade education Substance History: Recent section 35 himself to [place] and discharged on month ago. Has a history of 18 years sobriety in his 20s. Diagnostics Vital Signs (24Hr): Vital Signs - 24 hr 01/03/24 20:59 01/04/24 08:26 Temperature 98.6 F Pulse Rate 61 Respiratory Rate 20 Blood Pressure 112/76 100/61 Pulse Oximetry 96 Oxygen Delivery Method Room Air BMI result Body Mass Index 15.8 Labs 01/04/24 08:18 Labs: Laboratory Results - last 48 hr 01/03/24 01/04/24 21:44 08:09 POC Glucose 114 99 Meds/Allergies Allergies Allergies Allergy/AdvReac Type Severity Reaction Status Date / Time Penicillins [PENICILLINS] Allergy Unknown UNK Unverified 02/17/20 16:34 Mental Status Exam Mental Status Exam Narrative: Pleasant. Engaged. Hospital clothing. Fair hygiene. Endorses depression. Endorses suicidal thoughts but no current plans or intent. No HI. No agitation or psychosis. Insight and judgment fair Assessment & Plan Assessment & Plan (1) Major depressive disorder: Status: Acute Code(s): F32.9 - Major depressive disorder, single episode, unspecified (2) Cocaine use disorder: Status: Acute Code(s): F14.10 - Cocaine abuse, uncomplicated (3) PTSD (post-traumatic stress disorder): Status: Acute Code(s): F43.10 - Post-traumatic stress disorder, unspecified Plan Presents with mood symptoms and also cocaine use disorder and with that associated suicidal thoughts. Homeless. Hopeful for rehab and treatment team connecting with his [facility] team that he has recently been connected with. Will restart Lexapro, Abilify and Remeron. Very clear he does not take lithium as he has had toxicity in the past. Patient educated on: diagnosis, medication risk/benefits and substance abuse Informed Consent: understands Reason for continued inpatient stay Substantial Risk for: harm to self Statement Statement: I have reviewed the history and physical and performed a pertinent examination on my patient. No changes have occurred unless specified. If the History and Physical was not performed prior to admission, the Hospitalist's service will be consulted for completing the admission physical. Time Spent With Patient Time: Total time managing care of this patient today ____ minutes.
[2024-01-04 08:44] LABS: Alanine Aminotransferase 12 U/L (0-40); Albumin Level 4.3 g/dL (3.5-5.0); Alkaline Phosphatase 83 U/L (39-117); Anion Gap 12 (12-20); Aspartate Amino Transferase 14 U/L (5-37); Bilirubin Total 0.7 mg/dL (0.0-1.0); Blood Urea Nitrogen 19 mg/dL (9-16); Calcium 9.3 mg/dL (8.4-10.2); Carbon Dioxide 26 mmol/L (22-29); Chloride 109 mmol/L (96-108); Cholesterol 128 mg/dL (<200); Creatinine Clr Calc Pharmacy 92.5; Estimated Glomerular Filt Rate > 60; Glucose Fasting 91 mg/dL (60-99); HDL Cholesterol 53 mg/dL (>40); LDL Cholesterol Calculated 66 mg/dL (<100); Potassium 4.6 mmol/L (3.3-5.1); Sodium 142 mmol/L (135-145); Total Protein 6.5 g/dL (6.5-8.0); Triglycerides 49 mg/dL (<150)
[2024-01-04] MEDS: chlorproMAZINE HCl 100 MG TABLET PO (12:43)
[2024-01-04] MEDS: hydrOXYzine HCL 50 MG TABLET PO (12:44)
--- NOTE | 2024-01-04 16:18 | P.CONHOSP_ITS ---
History of Present Illness Data of Consult Service Date: 01/04/24 Primary Care Provider: Zander Lockhart MD HPI Reason for consult: routine medical H&P The patient is a 43-year-old male with a past medical history question hypertension who is admitted to the inpatient psychiatric unit. Medical consult has been requested for routine medical H and P. The patient is seen and examined in his room. He denies any current medical complaints. He is unsure of when he was diagnosed with hypertension, although he is on hydrochlorothiazide but does not know for how long. Past medical history Question hypertension Past surgical history Hernia repairs Family history Reports no known issues Social history Smokes 1 pack of cigarettes daily, currently using crack cocaine, denies other illicit substance, denies alcohol Review of Systems 2 Review of Systems: Negative except HPI PMFSH Social History Household Members: None Housing: Homeless Do you presently have visiting nurse or other home services: No Patient Tobacco Use Status: Current everyday Tobacco user Tobacco use type: Cigarette Cigarette Packs Per Day: 1 Cigarettes Per Day: 20.0 Smoked in Last 30 Days: Yes e-Cigarette/Vaping Use: Never Used Patient Interested in Nicotine Replacement: Yes Patient Given Instructions on How to Stop Smoking: Yes Date Education Initiated: 01/03/24 Second Hand Smoke Exposure: No Use of substances other than those prescribed or required for medical reasons: Yes Substance Use Type: Crack/Cocaine Substance Use Frequency: Daily Last Used Substance: Hours (ago) Last Used Substance Other:: crack cocaine Currently Displaying Signs/Symptoms of Drug Intoxication Withdrawal: No Any prior treatment program specific to substance use: Yes Advance Directives: No Advance Directives Information Provided: No Do you have thoughts of harming others: None Do you have a plan to hurt others: No Plan Recently lost weight without trying: Unsure Poor oral hygiene: Yes service: No Sexual orientation: Straight/Heterosexual Meds Allergies Allergy/AdvReac Type Severity Reaction Status Date / Time Penicillins [PENICILLINS] Allergy Unknown UNK Verified 01/05/24 08:45 Active Medications: Current Medications Acetaminophen (Acetaminophen 325 Mg Tablet) 650 mg PO Q6H PRN PRN Reason: Headache/Pain Mild Scale (1-3) Al Hydroxide/Mg Hydroxide (Magnesium Hydrox/Alum Hydrox 30 Ml Oral.Susp) 30 ml PO Q6H PRN PRN Reason: Heartburn/Nausea Aripiprazole (Aripiprazole 5 Mg Tablet) 5 mg PO DAILY [facility] Last Admin: 01/04/24 08:21 Dose: 5 mg Chlorpromazine HCl (Chlorpromazine Hcl 100 Mg Tablet) 100 mg PO TID PRN PRN Reason: agitation Last Admin: 01/04/24 12:43 Dose: 100 mg Escitalopram Oxalate (Escitalopram Oxalate 10 Mg Tablet) 10 mg PO DAILY [facility] Last Admin: 01/04/24 08:21 Dose: 10 mg Gabapentin (Gabapentin 400 Mg Capsule) 800 mg PO TID [facility] Last Admin: 01/04/24 15:58 Dose: 800 mg Hydrochlorothiazide (Hydrochlorothiazide 12.5 Mg Tablet) 12.5 mg PO DAILY [facility]; Protocol Last Admin: 01/04/24 08:26 Dose: Not Given Hydroxyzine HCl (Hydroxyzine Hcl 50 Mg Tablet) 50 mg PO Q6H PRN PRN Reason: Anxiety Last Admin: 01/04/24 12:44 Dose: 50 mg Magnesium Hydroxide (Milk Of Magnesia 30 Ml Oral.Susp) 30 ml PO DAILY PRN PRN Reason: Constipation Mirtazapine (Mirtazapine 15 Mg Tablet) 15 mg PO BEDTIME [facility] Nicotine (Nicotine 21 Mg Patch.Td24) 21 mg TRANSDERMA DAILY [facility] Last Admin: 01/04/24 08:36 Dose: 21 mg Nicotine Polacrilex (Nicotine Polacrilex 2 Mg Gum) 4 mg BUCCAL Q2H PRN PRN Reason: Nicotine Cravings Omeprazole (Omeprazole 20 Mg Capsule.Dr) 20 mg PO DAILY@0630 [facility] Last Admin: 01/04/24 07:05 Dose: 20 mg Ondansetron HCl (Ondansetron Odt 4 Mg Tab.Rapdis) 4 mg TRANSLINGU Q8H PRN PRN Reason: Nausea and Vomiting Topiramate (Topiramate 25 Mg Tablet) 25 mg PO BID [facility] Last Admin: 01/04/24 08:36 Dose: 25 mg Trazodone HCl (Trazodone Hcl 50 Mg Tablet) 50 mg PO BEDTIME MRX1 PRN PRN Reason: Insomnia Home Medications ?Medication ?Instructions ?Recorded ?Confirmed ?Last Taken ?Type albuterol 90 mcg/actuation aerosol mcg inhalation 01/04/24 Unknown History inhaler aripiprazole 15 mg tablet 15 mg PO DAILY 01/04/24 01/04/24 Unknown History escitalopram oxalate 10 mg tablet 10 mg PO DAILY 01/04/24 01/04/24 Unknown History (Lexapro) famotidine 20 mg tablet 20 mg PO BID 01/04/24 01/04/24 Unknown History gabapentin 100 mg capsule 100 mg PO DAILY 01/04/24 01/04/24 Unknown History hydrochlorothiazide 25 mg tablet 12.5 mg PO DAILY 01/04/24 01/04/24 Unknown History mirtazapine 15 mg tablet 15 mg PO DAILY 01/04/24 01/04/24 Unknown History prazosin 1 mg capsule 1 mg PO BEDTIME 01/04/24 01/04/24 Unknown History sucralfate 1 gram tablet 1 g QID 01/04/24 01/04/24 Unknown History Physical Exam 2 Vital Signs and Narrative: Vital Signs: Last Vital Signs Temp 98.4 F 01/04/24 08:00 Pulse 42 L 01/04/24 08:00 Resp 16 01/04/24 08:00 BP 100/61 01/04/24 08:26 Pulse Ox 99 01/04/24 08:00 O2 Del Method Room Air 01/04/24 08:00 BMI result Body Mass Index 15.8 Const: Other: Resting in bed comfortably Appears in no acute distress Pupils are equal round and reactive, extraocular movements are intact S1-S2, no extra heart sounds Lungs clear to auscultation Abdomen soft and nontender Awake and alert, oriented x3, cranial nerves 2 through 12 intact bilaterally Results Labs 01/04/24 08:18 Labs: Laboratory Results - last 24 hr 01/03/24 01/04/24 01/04/24 21:44 08:09 08:18 Anion Gap 12 Estim Creat Clear Calc 92.5 Estimated GFR > 60 POC Glucose 114 99 Fasting Glucose 91 Calcium 9.3 Total Bilirubin 0.7 AST 14 ALT 12 Alkaline Phosphatase 83 Total Protein 6.5 Albumin 4.3 Triglycerides 49 Cholesterol 128 LDL Cholesterol, Calc 66 HDL Cholesterol 53 Assessment and Plan (1) Routine medical exam: Status: Acute Plan 43 yo M admitted to . Medical consult requested for routine medical H&P. Appears medically stable. Continue baseline medications. Will sign off at this time. Please reconsult PRN. THank you.
[2024-01-04 20:00] VITALS: BP 114/58; PULSE 97; RESP 18; TEMP 36.6; O2SAT 99
[2024-01-05] MEDS: Nicotine 21 MG PATCH.TD24 TRANSDERMA (08:33)
[2024-01-05 08:34] VITALS: BP 120/76
[2024-01-05] MEDS: Escitalopram Oxalate 10 MG TABLET PO (08:34)
[2024-01-05] MEDS: ARIPiprazole 5 MG TABLET PO (08:34)
[2024-01-05] MEDS: hydroCHLOROthiazide 12.5 MG TABLET PO (08:34)
[2024-01-05] MEDS: Gabapentin 400 MG CAPSULE 800 MG PO ×3 (08:34→20:35)
[2024-01-05] MEDS: Topiramate 25 MG TABLET PO ×2 (08:34→20:35)
[2024-01-05] MEDS: Omeprazole 20 MG CAPSULE.DR PO (08:34)
[2024-01-05 08:42] VITALS: PULSE 76; RESP 16; TEMP 36.9; O2SAT 99
[2024-01-05] MEDS: chlorproMAZINE HCl 100 MG TABLET PO ×2 (09:56→20:35)
[2024-01-05] MEDS: hydrOXYzine HCL 50 MG TABLET PO ×2 (09:56→20:35)
--- NOTE | 2024-01-05 11:09 | HO.PSYCHPN ---
Subjective Subjective Date of Service: 01/05/24 Reason For Visit: depression Subjective Notes: Conditional Voluntary Healthcare Proxy: No Guardianship: No Interim History: Patient depressed with severe anxiety complains that people only see substance abuse in do not see his psychiatric history he was restarted on Abilify and escitalopram history of significant crack cocaine addiction he had been in a section 35 placement number of months ago was discharged to sober living and then voluntarily left Medication Compliance: Yes Mental Status Exam Mental Status Exam Narrative: Patient seen someone anxious in appearance casually dressed mildly disheveled mood anxious and dysphoric affect constricted patient asking for help regarding depression PTSD flashbacks to prior treatment passive SI no plan somewhat helpless hopeless despondent asking for help regarding addiction insight somewhat limited impulse control in the setting seems intact needs lot of reassurance Diagnostics Vital Signs (24Hr): Vital Signs - 24 hr 01/04/24 20:00 01/05/24 08:34 01/05/24 08:42 Temperature 97.8 F 98.4 F Pulse Rate 97 76 Respiratory Rate 18 16 Blood Pressure 114/58 L 120/76 Pulse Oximetry 99 99 Oxygen Delivery Method Room Air Room Air BMI result Body Mass Index 15.8 Labs 01/04/24 08:18 Labs: Laboratory Results - last 48 hr 01/03/24 01/04/24 01/04/24 21:44 08:09 08:18 Sodium 142 Potassium 4.6 Chloride 109 H Carbon Dioxide 26 Anion Gap 12 BUN 19 H Creatinine 0.91 Estim Creat Clear Calc 92.5 Estimated GFR > 60 POC Glucose 114 99 Fasting Glucose 91 Calcium 9.3 Total Bilirubin 0.7 AST 14 ALT 12 Alkaline Phosphatase 83 Total Protein 6.5 Albumin 4.3 Triglycerides 49 Cholesterol 128 LDL Cholesterol, Calc 66 HDL Cholesterol 53 Medications Medications Current Medications Acetaminophen (Acetaminophen 325 Mg Tablet) 650 mg PO Q6H PRN PRN Reason: Headache/Pain Mild Scale (1-3) Al Hydroxide/Mg Hydroxide (Magnesium Hydrox/Alum Hydrox 30 Ml Oral.Susp) 30 ml PO Q6H PRN PRN Reason: Heartburn/Nausea Aripiprazole (Aripiprazole 5 Mg Tablet) 5 mg PO DAILY [facility] Last Admin: 01/05/24 08:34 Dose: 5 mg Chlorpromazine HCl (Chlorpromazine Hcl 100 Mg Tablet) 100 mg PO TID PRN PRN Reason: agitation Last Admin: 01/05/24 09:56 Dose: 100 mg Escitalopram Oxalate (Escitalopram Oxalate 10 Mg Tablet) 10 mg PO DAILY [facility] Last Admin: 01/05/24 08:34 Dose: 10 mg Gabapentin (Gabapentin 400 Mg Capsule) 800 mg PO TID [facility] Last Admin: 01/05/24 08:34 Dose: 800 mg Hydrochlorothiazide (Hydrochlorothiazide 12.5 Mg Tablet) 12.5 mg PO DAILY [facility]; Protocol Last Admin: 01/05/24 08:34 Dose: 12.5 mg Hydroxyzine HCl (Hydroxyzine Hcl 50 Mg Tablet) 50 mg PO Q6H PRN PRN Reason: Anxiety Last Admin: 01/05/24 09:56 Dose: 50 mg Magnesium Hydroxide (Milk Of Magnesia 30 Ml Oral.Susp) 30 ml PO DAILY PRN PRN Reason: Constipation Mirtazapine (Mirtazapine 15 Mg Tablet) 15 mg PO BEDTIME [facility] Last Admin: 01/05/24 02:58 Dose: Not Given Nicotine (Nicotine 21 Mg Patch.Td24) 21 mg TRANSDERMA DAILY [facility] Last Admin: 01/05/24 08:33 Dose: 21 mg Nicotine Polacrilex (Nicotine Polacrilex 2 Mg Gum) 4 mg BUCCAL Q2H PRN PRN Reason: Nicotine Cravings Omeprazole (Omeprazole 20 Mg Capsule.Dr) 20 mg PO DAILY@0630 [facility] Last Admin: 01/05/24 08:34 Dose: 20 mg Ondansetron HCl (Ondansetron Odt 4 Mg Tab.Rapdis) 4 mg TRANSLINGU Q8H PRN PRN Reason: Nausea and Vomiting Topiramate (Topiramate 25 Mg Tablet) 25 mg PO BID [facility] Last Admin: 01/05/24 08:34 Dose: 25 mg Trazodone HCl (Trazodone Hcl 50 Mg Tablet) 50 mg PO BEDTIME MRX1 PRN PRN Reason: Insomnia Allergies Allergies Allergy/AdvReac Type Severity Reaction Status Date / Time Penicillins [PENICILLINS] Allergy Unknown UNK Verified 01/05/24 08:45 Assessment & Plan Assessment & Plan (1) Major depressive disorder: Status: Acute Code(s): F32.9 - Major depressive disorder, single episode, unspecified (2) Cocaine use disorder: Status: Acute Code(s): F14.10 - Cocaine abuse, uncomplicated (3) PTSD (post-traumatic stress disorder): Status: Acute Code(s): F43.10 - Post-traumatic stress disorder, unspecified Plan Presents with mood symptoms and also cocaine use disorder and with that associated suicidal thoughts. Homeless. Hopeful for rehab and treatment team connecting with his [facility] team that he has recently been connected with. Will restart Lexapro, Abilify and Remeron. Very clear he does not take lithium as he has had toxicity in the past. Patient educated on: diagnosis, medication risk/benefits, substance abuse and therapeutic strategies Informed Consent: further education needed Reason for continued inpatient stay Substantial Risk for: harm to self and rapid decompensation Time Spent With Patient Time: Total time managing care of this patient today _25___ minutes.
[2024-01-05 20:00] VITALS: BP 116/62; PULSE 72; RESP 17; TEMP 36.4; O2SAT 98
[2024-01-05] MEDS: traZODone HCL 50 MG TABLET PO (20:35)
[2024-01-05] MEDS: Mirtazapine 15 MG TABLET PO (20:35)
[2024-01-05] MEDS: Nicotine Polacrilex 2 MG GUM 4 MG BUCCAL (20:36)
[2024-01-06] VITALS (7 sets, daily range): BP systolic 104–130; BP diastolic 52–88; PULSE 56–130; RESP 16–18; TEMP 36.3–36.8; O2SAT 98–99
[2024-01-06] MEDS: Nicotine 21 MG PATCH.TD24 TRANSDERMA (08:45)
[2024-01-06] MEDS: Topiramate 25 MG TABLET PO ×2 (08:46→20:36)
[2024-01-06] MEDS: ARIPiprazole 5 MG TABLET PO (08:46)
[2024-01-06] MEDS: Omeprazole 20 MG CAPSULE.DR PO (08:46)
[2024-01-06] MEDS: hydroCHLOROthiazide 12.5 MG TABLET PO (08:47)
[2024-01-06] MEDS: Escitalopram Oxalate 10 MG TABLET PO (08:47)
[2024-01-06] MEDS: Gabapentin 400 MG CAPSULE 800 MG PO ×3 (08:47→20:36)
[2024-01-06] MEDS: Nicotine Polacrilex 2 MG GUM 4 MG BUCCAL ×2 (10:10→15:07)
--- NOTE | 2024-01-06 12:11 | HO.PSYCHPN ---
Subjective Subjective Date of Service: 01/06/24 Reason For Visit: depression Subjective Notes: Conditional Voluntary and 3 Day Guardianship: No Interim History: Pt seen in psychiatric follow-up. Patient is irritable agitated with poor impulse control. Yesterday he was demanding help for cocaine withdrawal and wanted treatment and today impulsively just asking to leave because nothing will help and we will be able to find him a place to go to. Patient did have some hypotension this morning hydrochlorothiazide and low-dose 12.5 and Thorazine were discontinued. Patient states he wants sobriety anxious agitated angry and irritable 3 day notice placed Medication Compliance: Yes Mental Status Exam Mental Status Exam Narrative: Patient seen casually dressed restless agitated demanding to be seen over and over. Patient anxious dysphoric irritable and labile denies active SI now demanding to leave if he is not able to be placed somewhere to go what is the point present limited insight and judgment Diagnostics Vital Signs (24Hr): Vital Signs - 24 hr 01/05/24 20:00 01/06/24 08:00 01/06/24 08:44 Temperature 97.6 F 98.3 F Pulse Rate 72 56 79 Respiratory Rate 17 16 Blood Pressure 116/62 118/71 114/71 Pulse Oximetry 98 99 99 Oxygen Delivery Method Room Air Room Air Room Air 01/06/24 10:48 01/06/24 10:49 Temperature 98.2 F Pulse Rate 113 H 130 H Respiratory Rate 18 Blood Pressure 128/88 104/74 Pulse Oximetry 98 99 Oxygen Delivery Method Room Air Room Air BMI result Body Mass Index 15.8 Labs 01/04/24 08:18 Medications Medications Current Medications Acetaminophen (Acetaminophen 325 Mg Tablet) 650 mg PO Q6H PRN PRN Reason: Headache/Pain Mild Scale (1-3) Al Hydroxide/Mg Hydroxide (Magnesium Hydrox/Alum Hydrox 30 Ml Oral.Susp) 30 ml PO Q6H PRN PRN Reason: Heartburn/Nausea Aripiprazole (Aripiprazole 5 Mg Tablet) 5 mg PO DAILY [facility] Last Admin: 01/06/24 08:46 Dose: 5 mg Escitalopram Oxalate (Escitalopram Oxalate 10 Mg Tablet) 10 mg PO DAILY [facility] Last Admin: 01/06/24 08:47 Dose: 10 mg Gabapentin (Gabapentin 400 Mg Capsule) 800 mg PO TID [facility] Last Admin: 01/06/24 08:47 Dose: 800 mg Hydrochlorothiazide (Hydrochlorothiazide 12.5 Mg Tablet) 12.5 mg PO DAILY [facility]; Protocol Last Admin: 01/06/24 08:47 Dose: 12.5 mg Hydroxyzine HCl (Hydroxyzine Hcl 50 Mg Tablet) 50 mg PO Q6H PRN PRN Reason: Anxiety Last Admin: 01/05/24 20:35 Dose: 50 mg Magnesium Hydroxide (Milk Of Magnesia 30 Ml Oral.Susp) 30 ml PO DAILY PRN PRN Reason: Constipation Mirtazapine (Mirtazapine 15 Mg Tablet) 15 mg PO BEDTIME [facility] Last Admin: 01/05/24 20:35 Dose: 15 mg Nicotine (Nicotine 21 Mg Patch.Td24) 21 mg TRANSDERMA DAILY [facility] Last Admin: 01/06/24 08:45 Dose: 21 mg Nicotine Polacrilex (Nicotine Polacrilex 2 Mg Gum) 4 mg BUCCAL Q2H PRN PRN Reason: Nicotine Cravings Last Admin: 01/06/24 10:10 Dose: 4 mg Omeprazole (Omeprazole 20 Mg Capsule.Dr) 20 mg PO DAILY@0630 [facility] Last Admin: 01/06/24 08:46 Dose: 20 mg Ondansetron HCl (Ondansetron Odt 4 Mg Tab.Rapdis) 4 mg TRANSLINGU Q8H PRN PRN Reason: Nausea and Vomiting Topiramate (Topiramate 25 Mg Tablet) 25 mg PO BID [facility] Last Admin: 01/06/24 08:46 Dose: 25 mg Trazodone HCl (Trazodone Hcl 50 Mg Tablet) 50 mg PO BEDTIME MRX1 PRN PRN Reason: Insomnia Last Admin: 01/05/24 20:35 Dose: 50 mg Allergies Allergies Allergy/AdvReac Type Severity Reaction Status Date / Time Penicillins [PENICILLINS] Allergy Unknown UNK Verified 01/05/24 08:45 Assessment & Plan Assessment & Plan (1) Major depressive disorder: Status: Acute Code(s): F32.9 - Major depressive disorder, single episode, unspecified (2) Cocaine use disorder: Status: Acute Code(s): F14.10 - Cocaine abuse, uncomplicated (3) PTSD (post-traumatic stress disorder): Status: Acute Code(s): F43.10 - Post-traumatic stress disorder, unspecified Plan Presents with mood symptoms and also cocaine use disorder and with that associated suicidal thoughts. Homeless. Hopeful for rehab and treatment team connecting with his [facility] team that he has recently been connected with. Will restart Lexapro, Abilify and Remeron. Very clear he does not take lithium as he has had toxicity in the past. 01/06/2024 Question bipolar disorder patient seems agitated activated versus cocaine withdrawal/craving. Thorazine held secondary to blood pressure monitor response patient was hypotensive encourage fluids monitor blood pressure consider Depakote oxcarbazepine encourage therapeutic Ventress evaluate patient for safety on 3 day notice. Patient's impulsivity irritability question biologic question cravings Patient educated on: medication risk/benefits and substance abuse Informed Consent: further education needed Reason for continued inpatient stay Substantial Risk for: harm to self and rapid decompensation Time Spent With Patient Time: Total time managing care of this patient today ____ minutes.
[2024-01-06] MEDS: traZODone HCL 50 MG TABLET PO (20:36)
[2024-01-06] MEDS: Mirtazapine 15 MG TABLET PO (20:36)
[2024-01-06] MEDS: hydrOXYzine HCL 50 MG TABLET PO (20:36)
[2024-01-07 08:00] VITALS: BP 104/66; PULSE 65; TEMP 36.9; O2SAT 99
[2024-01-07] MEDS: ARIPiprazole 5 MG TABLET PO (09:11)
[2024-01-07] MEDS: Gabapentin 400 MG CAPSULE 800 MG PO ×3 (09:11→21:27)
[2024-01-07] MEDS: Escitalopram Oxalate 10 MG TABLET PO (09:11)
[2024-01-07] MEDS: Omeprazole 20 MG CAPSULE.DR PO (09:11)
[2024-01-07] MEDS: Topiramate 25 MG TABLET PO ×2 (09:11→21:29)
[2024-01-07] MEDS: Nicotine 21 MG PATCH.TD24 TRANSDERMA (09:12)
[2024-01-07] MEDS: Milk of Magnesia 30 ML ORAL.SUSP PO (09:18)
--- NOTE | 2024-01-07 11:40 | MHC.RECOVRN ---
Met with pt on 01/05 around 1600 after Addiction Consult placed for cocaine use and requesting to speak with recovery team as soon as possible. Pt had been transferred from [facility] and admitted for SI. Pt laying in bed, easily wakes to voice and engages in conversation, irritable. Pt reports cocaine use, INH, 3.5 grams daily on and off for 7 years. Pt reports he had recently been Sect 35 and discharged to [facility], however, reports he did not agree with rules/regulations, states they made me stop all of my medications because taking them is a sin. Pt continues to report it's their fault I am here, I shouldn't have stopped all of my meds. Pt is adamant about going to [facility]. Reports his goal is [facility] or [place] [facility], both of which are requiring CSS completion prior to admission. Pt verbalizes discontent that he has not been placed in CSS yet, nor will there be bed availability while he is here. Unable to have full conversation regarding substance use/resources as pt is only focused on CSS admission. Encouraged pt to continue following up with CSS, even after dc from [facility], as most [facility] facilities will accept patients from the community as long as they have maintained recovery. Pt denies other questions or concerns for t/w. Discussed with Linda Stoddard APRN.
[2024-01-07] MEDS: Nicotine Polacrilex 2 MG GUM 4 MG BUCCAL (14:31)
--- NOTE | 2024-01-07 14:36 | P.PNPSI_ITS ---
Subjective Subjective Date of Service: 01/07/24 Reason For Visit: depression Subjective Notes: 3 Day Interim History: Reviewed with Dr. Chavez. Patient's 3 day up on 01/09/2024. Patient requesting to be discharged today. Patient stated, I have to leave to pay my excise tax on my license. I also have a storage unit that I need to move everything out of. After I do that, I plan on going to the [employer] and section 35'ing myself. Patient reports he plans on staying at the Living Room in [place] [employer] for a few days prior to going to court. Patient reports he does not want to be here because we are not helping him get into a program or a longterm house . Medication Compliance: Yes Side effects from medications: No Attending Groups: Intermittent Review of Systems Constitutional: Reports as per HPI Eyes: Reports as per HPI Reports as per HPI Cardiovascular: Reports as per HPI Respiratory: Reports as per HPI Gastrointestinal: Reports as per HPI Genitourinary: Reports as per HPI Musculoskeletal: Reports as per HPI Skin/Breast: Reports as per HPI Reports as per HPI Psychiatric: Reports as per HPI Endocrine: Reports as per HPI Hematologic/Lymphatic: Reports as per HPI Allergic/Immunologic: Reports as per HPI Mental Status Exam Mental Status Exam Narrative: Pt is alert and oriented; behavior is cooperative, irritable; dressed in casual attire; mood is described as anxious ; eye contact appropriate; Speech is normal rate, volume and not pressured; thought process is organized and goal directed; Thought content is on tx and discharge; denies SI/HI/VH/AH. Diagnostics Vital Signs (24Hr): Vital Signs - 24 hr 01/06/24 20:00 01/07/24 08:00 Temperature 97.4 F 98.4 F Pulse Rate 68 65 Respiratory Rate 18 Blood Pressure 108/52 L 104/66 Pulse Oximetry 98 99 Oxygen Delivery Method Room Air Room Air BMI result Body Mass Index 15.8 Labs 01/04/24 08:18 Medications Medications Current Medications Acetaminophen (Acetaminophen 325 Mg Tablet) 650 mg PO Q6H PRN PRN Reason: Headache/Pain Mild Scale (1-3) Al Hydroxide/Mg Hydroxide (Magnesium Hydrox/Alum Hydrox 30 Ml Oral.Susp) 30 ml PO Q6H PRN PRN Reason: Heartburn/Nausea Aripiprazole (Aripiprazole 5 Mg Tablet) 5 mg PO DAILY [facility] Last Admin: 01/07/24 09:11 Dose: 5 mg Escitalopram Oxalate (Escitalopram Oxalate 10 Mg Tablet) 10 mg PO DAILY [facility] Last Admin: 01/07/24 09:11 Dose: 10 mg Gabapentin (Gabapentin 400 Mg Capsule) 800 mg PO TID [facility] Last Admin: 01/07/24 14:31 Dose: 800 mg Hydroxyzine HCl (Hydroxyzine Hcl 50 Mg Tablet) 50 mg PO Q6H PRN PRN Reason: Anxiety Last Admin: 01/06/24 20:36 Dose: 50 mg Magnesium Hydroxide (Milk Of Magnesia 30 Ml Oral.Susp) 30 ml PO DAILY PRN PRN Reason: Constipation Last Admin: 01/07/24 09:18 Dose: 30 ml Mirtazapine (Mirtazapine 15 Mg Tablet) 15 mg PO BEDTIME [facility] Last Admin: 01/06/24 20:36 Dose: 15 mg Nicotine (Nicotine 21 Mg Patch.Td24) 21 mg TRANSDERMA DAILY [facility] Last Admin: 01/07/24 09:12 Dose: 21 mg Nicotine Polacrilex (Nicotine Polacrilex 2 Mg Gum) 4 mg BUCCAL Q2H PRN PRN Reason: Nicotine Cravings Last Admin: 01/07/24 14:31 Dose: 4 mg Omeprazole (Omeprazole 20 Mg Capsule.Dr) 20 mg PO DAILY@0630 [facility] Last Admin: 01/07/24 09:11 Dose: 20 mg Ondansetron HCl (Ondansetron Odt 4 Mg Tab.Rapdis) 4 mg TRANSLINGU Q8H PRN PRN Reason: Nausea and Vomiting Topiramate (Topiramate 25 Mg Tablet) 25 mg PO BID [facility] Last Admin: 01/07/24 09:11 Dose: 25 mg Trazodone HCl (Trazodone Hcl 50 Mg Tablet) 50 mg PO BEDTIME MRX1 PRN PRN Reason: Insomnia Last Admin: 01/06/24 20:36 Dose: 50 mg Allergies Allergies Allergy/AdvReac Type Severity Reaction Status Date / Time Penicillins [PENICILLINS] Allergy Unknown UNK Verified 01/05/24 08:45 Assessment & Plan Assessment & Plan (1) Major depressive disorder: Status: Acute Code(s): F32.9 - Major depressive disorder, single episode, unspecified (2) Cocaine use disorder: Status: Acute Code(s): F14.10 - Cocaine abuse, uncomplicated (3) PTSD (post-traumatic stress disorder): Status: Acute Code(s): F43.10 - Post-traumatic stress disorder, unspecified Plan Presents with mood symptoms and also cocaine use disorder and with that associated suicidal thoughts. Homeless. Hopeful for rehab and treatment team connecting with his [facility] team that he has recently been connected with. Will restart Lexapro, Abilify and Remeron. Very clear he does not take lithium as he has had toxicity in the past. 01/06/2024 Question bipolar disorder patient seems agitated activated versus cocaine withdrawal/craving. Thorazine held secondary to blood pressure monitor response patient was hypotensive encourage fluids monitor blood pressure consider Depakote oxcarbazepine encourage therapeutic [place] evaluate patient for safety on 3 day notice. Patient's impulsivity irritability question biologic question cravings 01/06:Patient's 3 day up on 01/09/2024. Patient requesting to be discharged today. Patient stated, I have to leave to pay my excise tax on my license. I also have a storage unit that I need to move everything out of. After I do that, I plan on going to the [employer] courts and section 35'ing myself. Patient reports he plans on staying at the Living Room in [employer] for a few days prior to going to court. Patient reports he does not want to be here because we are not helping him get into a program or a longterm house . Patient educated on: diagnosis, medication risk/benefits and substance abuse Reason for continued inpatient stay Substantial Risk for: med/psych decompensation Time Spent With Patient Time: Total time managing care of this patient today _20___ minutes.
[2024-01-07] MEDS: hydrOXYzine HCL 50 MG TABLET PO (15:37)
[2024-01-07 20:00] VITALS: BP 121/64; PULSE 76; RESP 18; TEMP 37.2; O2SAT 98
[2024-01-07] MEDS: Acetaminophen 325 MG TABLET 650 MG PO (21:27)
[2024-01-07] MEDS: traZODone HCL 50 MG TABLET PO (21:28)
[2024-01-07] MEDS: Mirtazapine 15 MG TABLET PO (21:28)
[2024-01-08] MEDS: Omeprazole 20 MG CAPSULE.DR PO (06:55)
[2024-01-08 08:00] VITALS: BP 101/70; PULSE 62; RESP 16; TEMP 36.1; O2SAT 100
[2024-01-08] MEDS: Nicotine 21 MG PATCH.TD24 TRANSDERMA (08:33)
[2024-01-08] MEDS: Topiramate 25 MG TABLET PO ×2 (08:34→20:59)
[2024-01-08] MEDS: ARIPiprazole 5 MG TABLET PO (08:34)
[2024-01-08] MEDS: Gabapentin 400 MG CAPSULE 800 MG PO ×3 (08:34→20:59)
[2024-01-08] MEDS: Escitalopram Oxalate 10 MG TABLET PO (08:34)
[2024-01-08] MEDS: Nicotine Polacrilex 2 MG GUM 4 MG BUCCAL ×2 (09:08→15:35)
[2024-01-08 11:22] VITALS: BMI 15.8
--- NOTE | 2024-01-08 14:02 | P.PNPSI_ITS ---
Subjective Subjective Date of Service: 01/08/24 Reason For Visit: depression Subjective Notes: 3 Day Interim History: Reviewed with Dr. Chavez. Patient's 3 day up on 01/09/2024. Patient apologized for getting upset yesterday with T/W due to not getting discharged. Patient reports feeling better today. Patient stated he plans on following up with outpatient providers. Patient stated, I plan going to living room and staying clean because I am too old for this. I am going to wait for a bed at a [facility] rather than section 35ing myself. I also have my [facility] worker who can help me . Patient denies SI/HI/VH/AH. Medication Compliance: Yes Side effects from medications: No Attending Groups: Intermittent Review of Systems Constitutional: Reports as per HPI Eyes: Reports as per HPI Reports as per HPI Cardiovascular: Reports as per HPI Respiratory: Reports as per HPI Gastrointestinal: Reports as per HPI Genitourinary: Reports as per HPI Musculoskeletal: Reports as per HPI Skin/Breast: Reports as per HPI Reports as per HPI Psychiatric: Reports as per HPI Endocrine: Reports as per HPI Hematologic/Lymphatic: Reports as per HPI Allergic/Immunologic: Reports as per HPI Mental Status Exam Mental Status Exam Narrative: Pt is alert and oriented; behavior is cooperative, calm; dressed in casual attire; mood is described as good ; eye contact appropriate; Speech is normal rate, volume and not pressured; thought process is organized and goal directed; Thought content is on tx and discharge; denies SI/HI/VH/AH. Diagnostics Vital Signs (24Hr): Vital Signs - 24 hr 01/07/24 20:00 01/08/24 08:00 Temperature 99.0 F 97 F Pulse Rate 76 62 Respiratory Rate 18 16 Blood Pressure 121/64 101/70 Pulse Oximetry 98 100 Oxygen Delivery Method Room Air Room Air BMI result Body Mass Index 15.8 Labs 01/04/24 08:18 Medications Medications Current Medications Acetaminophen (Acetaminophen 325 Mg Tablet) 650 mg PO Q6H PRN PRN Reason: Headache/Pain Mild Scale (1-3) Last Admin: 01/07/24 21:27 Dose: 650 mg Al Hydroxide/Mg Hydroxide (Magnesium Hydrox/Alum Hydrox 30 Ml Oral.Susp) 30 ml PO Q6H PRN PRN Reason: Heartburn/Nausea Aripiprazole (Aripiprazole 5 Mg Tablet) 5 mg PO DAILY [facility] Last Admin: 01/08/24 08:34 Dose: 5 mg Escitalopram Oxalate (Escitalopram Oxalate 10 Mg Tablet) 10 mg PO DAILY [facility] Last Admin: 01/08/24 08:34 Dose: 10 mg Gabapentin (Gabapentin 400 Mg Capsule) 800 mg PO TID [facility] Last Admin: 01/08/24 08:34 Dose: 800 mg Hydroxyzine HCl (Hydroxyzine Hcl 50 Mg Tablet) 50 mg PO Q6H PRN PRN Reason: Anxiety Last Admin: 01/07/24 15:37 Dose: 50 mg Magnesium Hydroxide (Milk Of Magnesia 30 Ml Oral.Susp) 30 ml PO DAILY PRN PRN Reason: Constipation Last Admin: 01/07/24 09:18 Dose: 30 ml Mirtazapine (Mirtazapine 15 Mg Tablet) 15 mg PO BEDTIME [facility] Last Admin: 01/07/24 21:28 Dose: 15 mg Nicotine (Nicotine 21 Mg Patch.Td24) 21 mg TRANSDERMA DAILY [facility] Last Admin: 01/08/24 08:33 Dose: 21 mg Nicotine Polacrilex (Nicotine Polacrilex 2 Mg Gum) 4 mg BUCCAL Q2H PRN PRN Reason: Nicotine Cravings Last Admin: 01/08/24 09:08 Dose: 4 mg Omeprazole (Omeprazole 20 Mg Capsule.Dr) 20 mg PO DAILY@0630 [facility] Last Admin: 01/08/24 06:55 Dose: 20 mg Ondansetron HCl (Ondansetron Odt 4 Mg Tab.Rapdis) 4 mg TRANSLINGU Q8H PRN PRN Reason: Nausea and Vomiting Topiramate (Topiramate 25 Mg Tablet) 25 mg PO BID [facility] Last Admin: 01/08/24 08:34 Dose: 25 mg Trazodone HCl (Trazodone Hcl 50 Mg Tablet) 50 mg PO BEDTIME MRX1 PRN PRN Reason: Insomnia Last Admin: 01/07/24 21:28 Dose: 50 mg Allergies Allergies Allergy/AdvReac Type Severity Reaction Status Date / Time Penicillins [PENICILLINS] Allergy Unknown UNK Verified 01/05/24 08:45 Assessment & Plan Assessment & Plan (1) Major depressive disorder: Status: Acute Code(s): F32.9 - Major depressive disorder, single episode, unspecified (2) Cocaine use disorder: Status: Acute Code(s): F14.10 - Cocaine abuse, uncomplicated (3) PTSD (post-traumatic stress disorder): Status: Acute Code(s): F43.10 - Post-traumatic stress disorder, unspecified Plan Presents with mood symptoms and also cocaine use disorder and with that associated suicidal thoughts. Homeless. Hopeful for rehab and treatment team connecting with his [facility] team that he has recently been connected with. Will restart Lexapro, Abilify and Remeron. Very clear he does not take lithium as he has had toxicity in the past. 01/06/2024 Question bipolar disorder patient seems agitated activated versus cocaine withdrawal/craving. Thorazine held secondary to blood pressure monitor response patient was hypotensive encourage fluids monitor blood pressure consider Depakote oxcarbazepine encourage therapeutic [place] evaluate patient for safety on 3 day notice. Patient's impulsivity irritability question biologic question cravings 01/06:Patient's 3 day up on 01/09/2024. Patient requesting to be discharged today. Patient stated, I have to leave to pay my excise tax on my license. I also have a storage unit that I need to move everything out of. After I do that, I plan on going to the [place] courts and section 35'ing myself. Patient reports he plans on staying at the Living Room in [place] for a few days prior to going to court. Patient reports he does not want to be here because we are not helping him get into a program or a intermediate house . 01/07: Patient's 3 day up on 01/09/2024. Patient apologized for getting upset yesterday with T/W due to not getting discharged. Patient reports feeling better today. Patient stated he plans on following up with outpatient providers. Patient stated, I plan going to living room and staying clean because I am too old for this. I am going to wait for a bed at a [facility] rather than section 35ing myself. I also have my [facility] worker who can help me . Patient denies SI/HI/VH/AH. Patient educated on: diagnosis, medication risk/benefits, substance abuse and therapeutic strategies Reason for continued inpatient stay Substantial Risk for: stable for discharge Time Spent With Patient Time: Total time managing care of this patient today _20___ minutes.
[2024-01-08 20:00] VITALS: BP 108/64; PULSE 75; RESP 18; TEMP 36.4; O2SAT 98
[2024-01-08] MEDS: Mirtazapine 15 MG TABLET PO (20:59)
[2024-01-09] MEDS: Omeprazole 20 MG CAPSULE.DR PO (06:46)
--- NOTE | 2024-01-09 06:49 | PC.NURSE ---
At 0645, this poem writer brought this patient his scheduled medication. This poem writer asked this patient how he had slept, and he angrily stated I didn't sleep at all, you should have given me my sleep med! This poem writer had given this patient his scheduled remeron, and told him that if he was not able to sleep, he had PRN trazodone, and to let this poem writer know if the remeron didn't work so this poem writer could provide the trazodone. This poem writer reminded this patient about that conversation, and this patient began yelling loudly I'm not going to argue! You should have just given it to me like everyone else did! At that point, he stormed out of his bedroom and marched angrily up and down the amaya yelling about the medication. He then returned to the nurse's station and asked for his morning medication. This poem writer asked the charge nurse to give it to him, as he was still upset with this poem writer. This patient never approached this poem writer, (or any other staff,) for sleep medication during the night. Ancillary staff stated they saw him get up approximately 3 times for something to drink or to check the clock in the nurse's station, but that he was in bed the rest of the time.
--- NOTE | 2024-01-09 07:39 | P.DS_ITS ---
DS: Providers Provider Date of Service: 01/09/24 Date of admission: 01/03/24 20:21 Date of discharge: 01/09/24 Primary care physician: Zander Lockhart MD Admitting clinician: Geovanna Kemp Attending physician on admission: Samuel Chavez Consults: 01/03/24 20:46 Consult to Hospitalist Routine Comment: Consulting Provider: Hospitalist Reason For Exam: Direct Admission H and P 01/05/24 11:08 Addiction Medicine Routine Consulting Provider: Addiction Covering Reason for consultation: severe crack addiction pt requestimg Has provider been notified: No Attending physician on discharge: Samuel Chavez Discharging clinician: Geovanna Kemp DS: Diagnosis Discharge Diagnosis (1) Major depressive disorder: Status: Acute (2) Cocaine use disorder: Status: Acute (3) PTSD (post-traumatic stress disorder): Status: Acute DS: Medications Discharge Medications Home Medications: Home Medications ?Medication ?Instructions ?Recorded ?Confirmed albuterol 90 mcg/actuation aerosol mcg inhalation 01/04/24 inhaler Previous Rx's ?Medication ?Instructions ?Recorded aripiprazole 5 mg tablet (Abilify) 5 mg PO DAILY 30 days #30 tabs 01/08/24 escitalopram oxalate 10 mg tablet 10 mg PO DAILY 30 days #30 tabs 01/08/24 (Lexapro) gabapentin 800 mg tablet 800 mg PO TID 30 days #90 tabs 01/08/24 mirtazapine 15 mg tablet 15 mg PO DAILY 30 days #30 tabs 01/08/24 omeprazole 20 mg capsule,delayed 20 mg PO DAILY@0630 30 days #30 01/08/24 release caps topiramate 25 mg tablet 25 mg PO BID 30 days #60 tabs 01/08/24 Mental Status Exam Mental Status Exam Narrative: Pt is alert and oriented; behavior is cooperative, calm; dressed in casual attire; mood is described as good ; eye contact appropriate; Speech is normal rate, volume and not pressured; thought process is organized and goal directed; Thought content is on tx and discharge; denies SI/HI/VH/AH. Data Data Completed and Pending Completed studies during hospitalization [Text1]: 01/03/24 01/04/24 01/04/24 21:44 08:09 08:18 Sodium 142 Potassium 4.6 Chloride 109 H Carbon Dioxide 26 Anion Gap 12 BUN 19 H Creatinine 0.91 Estim Creat Clear Calc 92.5 Estimated GFR > 60 POC Glucose 114 99 Fasting Glucose 91 Calcium 9.3 Total Bilirubin 0.7 AST 14 ALT 12 Alkaline Phosphatase 83 Total Protein 6.5 Albumin 4.3 Triglycerides 49 Cholesterol 128 LDL Cholesterol, Calc 66 HDL Cholesterol 53 DS: Summary Hospital Course Hospital Course: Met with patient. Discussed with nursing. Reviewed transfer information from [facility]. Overall patient reports that he wants to get back on his medications which include Lexapro and Abilify. Reports wanting to feel better and not use crack cocaine. Has been suicidal. No clear plans or intent, though does report yesterday running out in front of traffic and Banging his head. Reports sleep has been broken. Decreased energy and appetite. Denies hallucinations. Has been using crack cocaine most days. Reports recently section 35 in himself to [place] and discharged around 1 month ago. Reports having [facility] services and would like treatment team to connect with [facility] tack coverer around potential programming that they have been working on. Otherwise has been homeless for the last month. Denied legal issues. Regarding medications reports would like to go back on Lexapro, Abilify. Was very clear he does not take lithium for over 10 years, despite that being on transfer paperwork from [facility]. Reports that he has been toxic on this 4 times. Also reports ultimate goal is rehab programming and services that they are working on with [facility]. Otherwise labs were unremarkable as per transfer paperwork and tox positive for cocaine. EKG unremarkable. Presents with mood symptoms and also cocaine use disorder and with that associated suicidal thoughts. Homeless. Hopeful for rehab and treatment team connecting with his [facility] team that he has recently been connected with. Will restart Lexapro, Abilify and Remeron. Very clear he does not take lithium as he has had toxicity in the past. Question bipolar disorder patient seems agitated activated versus cocaine wit hdrawal/craving. Thorazine held secondary to blood pressure monitor response patient was hypotensive encourage fluids monitor blood pressure consider Depakote oxcarbazepine encourage therapeutic [place] evaluate patient for safety on 3 day notice. Patient's impulsivity irritability question biologic question cravings Patient's 3 day up on 01/09/2024. Patient requesting to be discharged today. Patient stated, I have to leave to pay my excise tax on my license. I also have a storage unit that I need to move everything out of. After I do that, I plan on going to the [place] courts and section 35'ing myself. Patient reports he plans on staying at the Living Room in [place] for a few days prior to going to court. Patient reports he does not want to be here because we are not helping him get into a program or a detention house . Patient apologized for getting upset yesterday with T/W due to not getting discharged. Patient reports feeling better today. Patient stated he plans on following up with outpatient providers. Patient stated, I plan going to living room and staying clean because I am too old for this. I am going to wait for a bed at a [facility] rather than section 35ing myself. I also have my DM worker who can help me . Patient denies SI/HI/VH/AH. Patient reports feeling good today and looking forward to discharge. Pt denies SI/HI/VH/AH. Pt reports he plans on following up with outpatient providers. Time spent discussing smoking cessation with patient: 3 to 10 minutes Status at Discharge Cognitive/behavioral status at discharge: Patient was interviewed prior to discharge and found to be fully oriented and without SI or HI. Patient has insight and demonstrates good judgment in terms of wanting to pursue treatment. Patient has a safety plan that includes presenting to the closest ER or calling 911 if feeling unsafe. Functional status at discharge: independent ambulation Overall status at discharge: patient is back to baseline Time Spent with Patient Time attestation: Total time managing care of this patient today _20___ minutes. Time spent: Less than 30 minutes Discharge Plan Discharge Anticipated Discharge Date/Time: 01/09/24 11:00 Patient Disposition: [facility] Discharge Diagnosis: MDD, PTSD, cocaine use d/o Referrals: [facility]: Jose Alberto Alcala (psychiatry) [Other] - 01/23/24 11:00 am (Hospital discharge appointment for psychiatric medication management. Appointment is by tele-health (telephone call)) [facility] [Other] - 1 Week (Referral for substance abuse treatment Patient should follow-up with [facility] after discharge ) [facility] [Other] - 1 Week (Information for DM worker ) Zander Xavier MD [Primary Care Provider] - 1 Week Discharge Medications: New aripiprazole [Abilify] 5 mg Tablet 5 mg PO DAILY 30 Days Qty: 30 0RF topiramate 25 mg Tablet 25 mg PO BID 30 Days Qty: 60 0RF omeprazole 20 mg Capsule,Delayed Release(Dr/Ec) 20 mg PO DAILY@0630 30 Days Qty: 30 0RF gabapentin 800 mg tablet 800 mg PO TID 30 Days Qty: 90 0RF Continued albuterol 90 mcg/actuation Aerosol INHALATION mirtazapine 15 mg Tablet 15 mg PO DAILY 30 Days Qty: 30 0RF escitalopram oxalate [Lexapro] 10 mg Tablet 10 mg PO DAILY 30 Days Qty: 30 0RF Discontinued aripiprazole 15 mg Tablet 15 mg PO DAILY sucralfate 1 gram Tablet 1 g QID prazosin 1 mg Capsule 1 mg PO BEDTIME famotidine 20 mg Tablet 20 mg PO BID hydrochlorothiazide 25 mg Tablet 12.5 mg PO DAILY Rx Instructions: 1/2 tab qd gabapentin 100 mg Capsule 100 mg PO DAILY Discharge Orders: Discharge Order (Routine); Ordered 01/09/24 Ordered By: Geovanna Kemp Diet: Regular diet Activity on Discharge: As tolerated Stand Alone Forms: Patient Portal Discharge page Print Language: Cypriot Care Plan Goals: Maintain mood and safe behaviors Take medications as prescribed Continue to pursue sobriety Practice coping skills Continue with outpatient providers and reach out to them as needed Health Concerns: Mood stability and behaviors Sobriety Plan of Treatment: Follow up with your PCP, psychiatric provider and other outpatient providers regarding above concerns Take medications as prescribed Assessment: Patient was interviewed prior to discharge and found to be fully oriented and without SI or HI. Patient has insight and demonstrates good judgment in terms of wanting to pursue treatment. Patient has a safety plan that includes presenting to the closest ER or calling 911 if feeling unsafe.
[2024-01-09 08:00] VITALS: BP 113/74; PULSE 64; RESP 16; TEMP 36.3; O2SAT 100
[2024-01-09] MEDS: Nicotine 21 MG PATCH.TD24 TRANSDERMA (08:24)
[2024-01-09] MEDS: Topiramate 25 MG TABLET PO (08:25)
[2024-01-09] MEDS: Escitalopram Oxalate 10 MG TABLET PO (08:25)
[2024-01-09] MEDS: Gabapentin 400 MG CAPSULE 800 MG PO (08:25)
[2024-01-09] MEDS: ARIPiprazole 5 MG TABLET PO (08:25)
[2024-01-09] MEDS: Naloxone HCl Nasal TAKE HOME 4 MG SPRAY 8 MG NOSTRILALT (08:26)
[2024-01-09] MEDS: Nicotine Polacrilex 2 MG GUM 4 MG BUCCAL (09:49)
[2024-01-09] MEDS: Acetaminophen 325 MG TABLET 650 MG PO (10:15)
== END 2024-01-09 10:34 | disposition home or self-care (01) | DRG 754 ==
PROVIDERS: Admitting Provider Psychiatry & Neurology Psychiatry; PCP Internal Medicine; Visit Provider Psychiatry & Neurology Psychiatry
DX: F32.9 Major depressive disorder, single episode, unspecified (principal); R45.851 Suicidal ideations; F43.10 Post-traumatic stress disorder, unspecified; F17.210 Nicotine dependence, cigarettes, uncomplicated; F14.93 Cocaine use, unspecified with withdrawal; Z71.6 Tobacco abuse counseling; Z91.51 Personal history of suicidal behavior; Z79.899 Other long term (current) drug therapy
CPT/HCPCS: 36415; 80053; 80061; 82947

== ENCOUNTER → 2024-01-03 20:21 | Outpatient (BNV) | payer OTHER, SELFPAY | PROVIDERS: Admitting Provider Psychiatry & Neurology Psychiatry; PCP Internal Medicine; Visit Provider Psychiatry & Neurology Psychiatry | DX: F32.2 Major depressive disorder, single episode, severe without psychotic features (principal); F14.10 Cocaine abuse, uncomplicated; F43.11 Post-traumatic stress disorder, acute | CPT/HCPCS: 99231; 99232 ==

== ENCOUNTER → 2024-01-03 20:21 | Outpatient (BNV) | payer OTHER, SELFPAY | PROVIDERS: Admitting Provider Psychiatry & Neurology Psychiatry; PCP Internal Medicine; Visit Provider Psychiatry & Neurology Psychiatry | DX: F32.2 Major depressive disorder, single episode, severe without psychotic features (principal); F14.10 Cocaine abuse, uncomplicated; F43.11 Post-traumatic stress disorder, acute | CPT/HCPCS: 99222; 99231; 99232; 99238 ==

== ENCOUNTER → 2024-01-03 20:21 | Outpatient (BNV) | payer MEDICAID, SELFPAY | PROVIDERS: Admitting Provider Psychiatry & Neurology Psychiatry; PCP Internal Medicine; Visit Provider Family Medicine | DX: Z02.2 Encounter for examination for admission to residential institution (principal) | CPT/HCPCS: 99429 ==

== ENCOUNTER 2024-03-17 18:52 | Emergency (ER) | payer MEDICAID, SELFPAY ==
[2024-03-17 18:57] VITALS: BP 96/64; PULSE 68; O2SAT 100
--- NOTE | 2024-03-17 18:58 | PC.NURSE ---
pt walked out of the mwr immediately after getting off the stretcher, ems reports he was unhappy about goint to the waiting room
[2024-03-17 19:04] VITALS: BP 123/71; PULSE 66; RESP 19; TEMP 36.6; O2SAT 100; BMI 16.0
--- NOTE | 2024-03-17 19:14 | ED.MEDCLEAR ---
HPI - Medical Clearance General Chief complaint: Medical Clearance Stated complaint: alcohol withdrawal symptoms Time Seen by Provider: 03/17/24 22:46 History of Present Illness ED Provider: Daren OSORIO Narrative: The patient is a 43-year-old male who arrived in the emergency room by ambulance from a respite facility. The patient says he believes the respite facility was in [place] but he is not sure. He says that some kind of a mental health professional helped him get into the respite facility. The patient says that he has a history of cocaine abuse. He drinks alcohol but he does not really consider himself an alcoholic. He says that he was sent here by ambulance from the respite facility because they wanted him medically clear. He thinks that the staff at the respite facility were concerned that the patient was having alcohol withdrawal. The patient says he does not feel that he is helping alcohol withdrawal. He says if he is having any kind of withdrawal problems he is having cocaine withdrawal. He is unhappy at having been sent here for medical clearance and is very eager to return to the respite facility. Related Information Home Medications ?Medication ?Instructions ?Recorded ?Confirmed albuterol 90 mcg/actuation aerosol mcg inhalation 01/04/24 inhaler Previous Rx's ?Medication ?Instructions ?Recorded aripiprazole 5 mg tablet (Abilify) 5 mg PO DAILY 30 days #30 tabs 01/08/24 escitalopram oxalate 10 mg tablet 10 mg PO DAILY 30 days #30 tabs 01/08/24 (Lexapro) gabapentin 800 mg tablet 800 mg PO TID 30 days #90 tabs 01/08/24 mirtazapine 15 mg tablet 15 mg PO DAILY 30 days #30 tabs 01/08/24 omeprazole 20 mg capsule,delayed 20 mg PO DAILY@0630 30 days #30 01/08/24 release caps topiramate 25 mg tablet 25 mg PO BID 30 days #60 tabs 01/08/24 Allergies Allergy/AdvReac Type Severity Reaction Status Date / Time Penicillins [PENICILLINS] Allergy Unknown UNK Verified 03/17/24 19:06 Review of Systems Review of Systems: Yes all other systems are reviewed and are negative [facility] Past Medical History Medical History (Updated 03/18/24 @ 00:01 by Jessica Bob) Routine medical exam Social History Social History Household Members: None Housing: Homeless Do you presently have visiting nurse or other home services: No Alcohol intake: current Alcohol intake frequency: a few times a week Patient Tobacco Use Status: Current everyday Tobacco user Tobacco use type: Cigarette Cigarette Packs Per Day: 1 Cigarettes Per Day: 20.0 Smoked in Last 30 Days: Yes e-Cigarette/Vaping Use: Never Used Second Hand Smoke Exposure: No Use of substances other than those prescribed or required for medical reasons: Yes Substance Use Type: Crack/Cocaine Substance Use Frequency: Chronic Longstanding Last Used Substance: Unknown Advance Directives: No Advance Directives Information Provided: No Do you have a plan to hurt others: No Plan service: No Sexual orientation: Straight/Heterosexual Physical Exam Vital Signs: Vital Signs: Last Vital Signs Temp 98.1 F 03/17/24 23:38 Pulse 54 03/17/24 23:38 Resp 16 03/17/24 23:38 BP 115/77 03/17/24 23:38 Pulse Ox 100 03/17/24 23:38 O2 Del Method Room Air 03/17/24 23:38 BMI result Body Mass Index 16.0 Const: Other: The patient is a slim 43-year-old male. He seemed very high-strung but not acutely ill. HEENT: Other: Face is symmetrical. Mucous membranes moist. Eyes: General: appearance normal, both eyes and all related structures Neck: Neck: Yes no JVD Resp: Effort & Inspection: normal respiratory effort Auscultation: clear to auscultation bilaterally Cardio: Rate: bradycardic Rhythm: regular rhythm Heart sounds: S1 normal heart sound present and S2 normal heart sound present GI: Other: Abdomen is soft and nontender Skin: Other: Skin is dry and unremarkable Neuro: Other: The patient was awake and alert. He was appropriately oriented. He had an angry demeanor but a normal mental status otherwise. Cranial nerves were intact. He moves his extremities normally. No tremor. Gait was steady. Extrem: Other: No peripheral edema Psych: Other: The patient denies suicidality Course Course Course Narrative: This is a Rapid Medical Examination (RME) performed by Dagoberto Jane PA-C in triage. Full HPI, ROS, assessment and treatment plan per primary provider in the Main ED. 43 yo male hx of PTSD, polysubstance use disorder, MDD here via EMS from respite for eval of etoh withdrawal per staff. pt agitated, stating that is not withdrawing from etoh but withdrawing from cocaine. last used this morning. last etoh consumption yesterday. denies SI/HI. +agitated, yelling, ambulating with steady gait, AOX3. Plan: med clearance Medical Decision Making Medical Decision Making [facility] Narrative: The patient is a 43-year-old male who was sent here from a respite facility for medical clearance. Apparently the facility was concerned the patient might be showing signs of alcohol withdrawal. As far as I can tell the patient is not showing any signs of alcohol withdrawal. Additionally the patient says that although he drinks alcohol his primary drug is cocaine. The patient does not think he is having alcohol withdrawal and he does not have any significant history of alcohol withdrawal symptoms he says. The patient was very eager to return to his respite facility. He was bradycardic. The patient says that this has been noticed in him before. He does not feel any symptoms related to his bradycardia. We were able to contact his respite facility and they are willing to take him back. We will arrange for a [employer] taxi to take him to respite. Lab Data 03/17/24 19:30 03/17/24 19:30 Labs: Lab Results 03/17/24 03/17/24 Range/Units 19:30 22:24 WBC 6.2 (4.8-10.8) X10*3/uL RBC 4.82 (4.60-5.80) X10*6/uL Hgb 14.2 (14.0-18.0) g/dl Hct 42.4 (42.0-52.0) % MCV 88.0 (80.0-98.0) fL MCH 29.5 (27.0-33.0) pg MCHC 33.5 (31.0-36.0) g/dl RDW 13.3 (11.0-16.0) % Plt Count 313 (160-400) X10*3/uL MPV 10.2 (9.4-12.4) fL Immature Gran % (Auto) 0.3 (0.0-0.4) % Neut % (Auto) 48.6 (45-73) % Lymph % (Auto) 38.2 (20-40) % Barnes % (Auto) 8.7 (2-11) % Eos % (Auto) 3.2 (0-4) % Baso % (Auto) 1.0 (0-2) % Lymph # (Auto) 2.4 (1.2-4.9) X10*3/uL Barnes # (Auto) 0.5 (0.1-1.2) X10*3/uL Eos # (Auto) 0.2 (0.0-0.4) X10*3/uL Baso # (Auto) 0.1 (0.0-0.2) X10*3/uL Abs Immat Gran (auto) 0.02 (0.00-0.03) X10*3/uL Absolute Neuts (auto) 3.0 (2.0-8.3) x10*3/uL Absolute Nucleated RBC 0.000 (0.0-0.012) X10*3/uL Nucleated RBC % (auto) 0.0 (0.0-0.2) /100WBC Sodium 143 (135-145) mmol/L Potassium 4.1 (3.3-5.1) mmol/L Chloride 107 (96-108) mmol/L Carbon Dioxide 28 (22-29) mmol/L Anion Gap 12 (12-20) BUN 15 (9-16) mg/dL Creatinine 0.87 (0.5-1.4) mg/dL Estim Creat Clear Calc 98.5 Estimated GFR > 60 Random Glucose 73 (60-115) mg/dL Calcium 9.1 (8.4-10.2) mg/dL Magnesium 2.1 (1.6-2.6) mg/dL Total Bilirubin 0.2 (0.0-1.0) mg/dL AST 18 (5-37) U/L ALT 17 (0-40) U/L Alkaline Phosphatase 87 (39-117) U/L Total Protein 6.6 (6.5-8.0) g/dL Albumin 4.2 (3.5-5.0) g/dL Lipase 78 (8-78) U/L Urine Color Yellow Urine Appearance Clear Urine pH 7.5 (5.0-9.0) Ur Specific [place] 1.015 (1.005-1.025) Urine Protein Negative (Neg-Trace) mg/dL Urine Glucose (UA) Negative (Negative) mg/dL Urine Ketones Negative (Negative) mg/dL Urine Blood Negative (Negative) Urine Nitrite Negative (Negative) Ur Leukocyte Esterase Negative (Negative) Urine RBC 0-2 (0-2) /HPF Urine WBC 0-5 (0-5) /HPF Ur Squamous Epith Cells 0-2 (0-2) /HPF Urine Bacteria None Seen (None Seen) Hyaline Casts 0-2 (0-2) /LPF Salicylates < 5.0 L (15-30) mg/dL Urine Opiates Screen Not Detected (Not Detect) Ur Buprenorphine Scrn Not Detected (Not Detect) ng/mL Ur Oxycodone Screen Not Detected (Not Detect) ng/mL Urine Methadone Screen Not Detected (Not Detect) ng/mL Urine Fentanyl Screen Not Detected (Not Detect) Acetaminophen < 3 (<30) mcg/mL Ur Barbiturates Screen POSITIVE H (Not Detect) Ur Phencyclidine Scrn Not Detected (Not Detect) Ur Amphetamines Screen Not Detected (Not Detect) U Benzodiazepines Scrn Not Detected (Not Detect) Urine Cocaine Screen POSITIVE H (Not Detect) U Marijuana (THC) Screen POSITIVE H (Not Detect) Ethyl Alcohol < 10 mg/dL Discharge Plan Discharge Clinical Impression: Encounter for medical clearance for patient hold, Cocaine use disorder Patient Disposition: Home, Self-Care Additional Instructions: This patient was seen in the emergency room and seems to be medically clear for admission to a respite or detox facility. Please rest and take it easy. Return to the emergency room if worse. Prescriptions: No Action albuterol 90 mcg/actuation Aerosol INHALATION aripiprazole [Abilify] 5 mg Tablet 5 mg PO DAILY 30 Days Qty: 30 0RF topiramate 25 mg Tablet 25 mg PO BID 30 Days Qty: 60 0RF omeprazole 20 mg Capsule,Delayed Release(Dr/Ec) 20 mg PO DAILY@0630 30 Days Qty: 30 0RF gabapentin 800 mg tablet 800 mg PO TID 30 Days Qty: 90 0RF mirtazapine 15 mg Tablet 15 mg PO DAILY 30 Days Qty: 30 0RF escitalopram oxalate [Lexapro] 10 mg Tablet 10 mg PO DAILY 30 Days Qty: 30 0RF Referrals: Zander Xavier MD [Physician] - Interventions: ED Discharge Assessment Last Done: 03/17/24 23:38 Discharge Date/Time: 03/17/24 23:39 Print Language: [place] African
[2024-03-17 19:33] LABS: MANUAL DIFF FLAG NO
[2024-03-17 19:38] LABS: Basophils Absolute Auto 0.1 X10*3/uL (0.0-0.2); Eosinophils Absolute Auto 0.2 X10*3/uL (0.0-0.4); Eosinophils Percent Auto 3.2 % (0-4); Hematocrit 42.4 % (42.0-52.0); Hemoglobin 14.2 g/dl (14.0-18.0); Imm Gran Abs Auto 0.02 X10*3/uL (0.00-0.03); Imm Gran Pct Auto 0.3 % (0.0-0.4); Lymphocytes Absolute Auto 2.4 X10*3/uL (1.2-4.9); Lymphocytes Percent Auto 38.2 % (20-40); Mean Corpuscular HGB Conc 33.5 g/dl (31.0-36.0); Mean Corpuscular Hemoglobin 29.5 pg (27.0-33.0); Mean Platelet Volume 10.2 fL (9.4-12.4); Monocytes Absolute Auto 0.5 X10*3/uL (0.1-1.2); Monocytes Percent Auto 8.7 % (2-11); Neutrophils Percent Auto 48.6 % (45-73); Platelet Count 313 X10*3/uL (160-400); Red Blood Count 4.82 X10*6/uL (4.60-5.80); Red Cell Distribution Width 13.3 % (11.0-16.0); White Blood Count 6.2 X10*3/uL (4.8-10.8)
[2024-03-17 19:48] LABS: Ethanol < 10 mg/dL
[2024-03-17 19:52] LABS: Acetaminophen LAB < 3 mcg/mL (<30); Alanine Aminotransferase 17 U/L (0-40); Albumin Level 4.2 g/dL (3.5-5.0); Alkaline Phosphatase 87 U/L (39-117); Anion Gap 12 (12-20); Aspartate Amino Transferase 18 U/L (5-37); Bilirubin Total 0.2 mg/dL (0.0-1.0); Blood Urea Nitrogen 15 mg/dL (9-16); Calcium 9.1 mg/dL (8.4-10.2); Carbon Dioxide 28 mmol/L (22-29); Chloride 107 mmol/L (96-108); Creatinine Clr Calc Pharmacy 98.5; Estimated Glomerular Filt Rate > 60; Glucose Random 73 mg/dL (60-115); Lipase 78 U/L (8-78); Magnesium 2.1 mg/dL (1.6-2.6); Potassium 4.1 mmol/L (3.3-5.1); Salicylate < 5.0 mg/dL (15-30); Sodium 143 mmol/L (135-145); Total Protein 6.6 g/dL (6.5-8.0)
--- NOTE | 2024-03-17 21:17 | PC.NURSE ---
No call to name at 21:17. Pt not in waiting room.
--- OUTSIDE RECORDS SUMMARY | 2024-03-17 21:25 | XMS_ITS | Continuity of Care Document ---
Author Organization [facility] ter Address [address] [place] [address]- Care Team Providers Care Procedural Nurse Name Role Phone Kimberly Lockhart MD, Zander Primary Care Phys ician [place] [facility] - 01/03/24 [facility] [address] [place] [id number]- Encounter Diagnosis Suicidal ideation(Final) - 01/03/24 Cocaine use(Final) - 01/03/24 Discharge Disposition: Transfer to [facility] Facility Attending Physician: Chikis Milligan DO Admitting Physician: Chikis Milligan DO Referring Physician: Not on Staff, Referring [...] 1Early/Late Reason: Med Not Available Medications ARIPiprazole 15 mg oral tablet 15 mg, 1, tablet, By Mouth, Daily, # 30 tablet, Refills 0, Maintenance, 01/03/24 4:03:00 EDT, Partial fill upon patient request if the prescription is for a schedule II opioid drug. Start Date: 01/03/24 Status: Ordered ARIPiprazole 5 mg oral tablet TAKE 1 TABLET BY MOUTH DAILY Start Date: 09/24/23 Status: Ordered Carafate 1 gm oral tablet 1 Gm, 1, tablet, By Mouth, 4 times a day, # 120 tablet, Refills 0, Tot. Refills 0, Maintenance, 11/25/23 4:46:00 EDT, Route to Pharmacy Electronically, [facility]/pharmacy #[id number], Partial fill upon patient request if the prescription is for a schedule II opio... Start Date: 11/25/23 Status: Ordered CHLORPROMAZINE 100MG TABLETS CHLORPROMAZINE 100MG TABLETS, 0 Refills, Maintenance, 09/24/23 6:15:00 EDT Start Date: 09/24/23 Status: Ordered escitalopram 10 mg oral tablet 1 tablet = 10 mg, By Mouth, Daily, # 30 tablet, 0 Refills, Maintenance, 01/03/24 4:03:00 EDT, Tablet, Partial fill upon patient request if the prescription is for a schedule II opioid drug. Start Date: 01/03/24 Status: Ordered famotidine 20 mg oral tablet 20 mg, 1, tablet, By Mouth, 2 times a day, # 180 tablet, Refills 0, Maintenance, 01/03/24 4:03:00 EDT, Partial fill upon patient request if the prescription is for a schedule II opioid drug. Start Date: 01/03/24 Status: Ordered fluticasone 50 mcg/inh nasal spray 1 sprays = 50 mcg, Nares, Both, Daily in AM, 0 Refills, Maintenance, 01/03/24 4:03:00 EDT, [place], Partial fill upon patient request if the prescription is for a schedule II opioid drug. Start Date: 01/03/24 Status: Ordered gabapentin 100 mg oral capsule TAKE 1 CAPSULE BY MOUTH TWICE A DAY IN THE MORNING AND DINNER Start Date: 01/03/24 Status: Ordered gabapentin 400 mg oral capsule [...] 0 Refills,Maintenance, 08/05/23 14:50:00 EST, DIS Tablet, [facility] #[id number], Partial fill upon patient request if the prescription is for a schedule II... Start Date: 08/05/23 Stop Date: 08/08/23 Status: Ordered prazosin 1 mg oral capsule 1 mg, 1, capsule, By Mouth, Daily at bedtime, # 30 tablet, Refills 0, Maintenance, 01/03/24 4:03:00EDT, Partial fill upon patient request if the prescription is for a schedule II opioid drug. Start Date: 01/03/24 Status: Ordered topiramate 25 mg oral tablet TAKE 1 TABLET BY MOUTH TWICE DAILY Start Date: 07/07/23 Status: Ordered Ventolin HFA 108 mcg/inh inhalation aerosol with adapter 1 puffs, Inhalation, Every 6 hours, PRN for wheezing, # 18 Gm, 0 Refills, Maintenance, 01/03/24 4:04:00 EDT, Aeros[place], Partial fill upon patient request if the prescription is for a schedule II opioiddrug. Start Date: 01/03/24 Status: Ordered Problem List Condition Confirmation Course Effective Dates Status Health St atus Informant Diabetes Confirmed Active Hypertension Confirmed Active Major depressive disorder Confirmed Active PTSD (post-traumatic stress disorder) Confirmed Active Tobacco use disorder Confirmed Active Underweight Confirmed Active Vital Signs Most recent to oldest [Reference Range]: 1 2 3 Height 198 cm (01/03/24 8:05 AM) 198 cm (01/03/24 12:39 AM) Weight 61.5 kg (01/03/24 8:05 AM) 61.5 kg (01/03/24 12:39 AM) Oxygen Saturation [94-100 %] 100 % (01/03/24 8:02 PM) 97 % (01/03/24 8:05 AM) 99 % (01/03/24 4:00 AM) Pulse Rate [55-90 bpm] 51 bpm *L* (01/03/24 8:02 PM) 57 bpm (01/03/24 8:05 AM) 82 bpm (01/03/24 4:00 AM) Body Mass Index [18.5-24.99 kg/m2] 15.69 kg/m2 *L* (01/03/24 8:05 AM) 15.69 kg/m2 *L* (01/03/24 12:39 AM) Blood Pressure [90-138/55-84 mm Hg] 107/64mm Hg (01/03/24 8:02 PM) 105/67mm Hg (01/03/24 8:05 AM) 119/76mm Hg (01/03/24 4:00 AM) Respiratory Rate [16-30 br/min] 19 br/min (01/03/24 8:02 PM) 16 br/min (01/03/24 8:05 AM) 16 br/min (01/03/24 4:00 AM) Temperature [96.8-100.4 DegF] 97.3 DegF (01/03/24 8:02 PM) 98.7 DegF (01/03/24 8:05 AM) 98.4 DegF (01/03/24 12:39 AM) Mode of Delivery (Oxygen) Room air (01/03/24 8:02 PM) Room air (01/03/24 8:05 AM) Room air (01/03/24 4:00 AM) Blood pressure sites Arm, left (01/03/24 8:02 PM) Arm, right (01/03/24 8:05 AM) Arm, left (01/03/24 4:00 AM) Temperature Route Oral (01/03/24 8:02 PM) Oral (01/03/24 8:05 AM) Oral (01/03/24 12:39 AM) Dry Weight 61.5 kg (01/03/24 8:05 AM) 61.5 kg (01/03/24 12:39 AM) Weight Obtained Via Standing scale (01/03/24 12:39 AM) Dry Weight Obtained Via Standing scale (01/03/24 12:39 AM) Social History Social History Type Response Smoking Status Former smoker, quit more than 30 days ago entered on: 11/24/23 Sex Implantable Device List Procedure Provider Procedure Date Device Type Site Repair Hernia Inguinal Laparoscopic Amadeo PAINTING, Dillan 07/19/21 Unknown Pelvis Left Device Identifier Serial Number Lot or Batch Number Manufacturing Date Expiration Date Distinct Identification Code MRI Safety Implantable Status Assigning Authority [id number] Unknown [id number] Unknown 01/27/23 Unknown Unknown Active GS1 EKG study * Event Display: ECG 12-Lead Authored Date: Please click on pdf link to open report * Event Display: ECG 12-Lead Authored Date: Ventricular Rate: 46 BPM Atrial Rate: 46 BPM P-R Interval: 156 ms QRS Duration: 90 ms Q-T Interval: 450 ms QTC Calculation(Bazett): 393 ms P [place]: 70 degrees R [place]: 76 degrees T [place]: 65 degrees Sinus bradycardia Otherwise normal ECG When compared with ECG of 24-NOV-2023 23:02, No significant change was found Confirmed by KELI LANCASTER ([id number]) on 01/03/2024 2:01:25 PM [place]: KELI LANCASTER Patient Care team information Care Team Personnel Name: Zander Xavier MD Position: [facility] Outreach Member Role: PCP Address: Address: [address] [place] [id number] Name: Paul Menon RN Position: [facility] RN Member Role: Primary Care Nurse Name: Maryanne Ny Position: [facility] RN Member Role: Primary Care Nurse Name: Melissa Pham RN Position: [facility] Nurse Member Role: Primary Care Nurse Name: Su Lewis RN Position: S RN Member Role: Primary Care Nurse Care Team Related Persons Name: TONY PATEL Address: [place] [address] Name: YULY HE Address: home [address] [place] [address] Name: PT REQUESTS, NO ONE
--- OUTSIDE RECORDS SUMMARY | 2024-03-17 21:26 | XMS_ITS | Continuity of Care Document ---
Author Organization [facility] ter Address [address] [place] [address]- Care Team Providers Care Press Set Up Person Name Role Phone Kimberly Lockhart MD, Zander Primary Care Phys ician [facility] [facility] [place]): [place]24 - 02/22/24 [facility] [address] [place] [id number]- Encounter Diagnosis Suicidal ideation(Final) - 02/21/24 Discharge Disposition: Transfer to [facility] Facility Attending Physician: Miki Everett MD Admitting Physician: Miki Everett MD Referring Physician: Not on Staff, Referring [...] 11/25/23 4:46:00 EDT, Route to Pharmacy Electronically, [facility]/pharmacy #[id number], Partial fill upon patient request if the [...] AM, 0 Refills, Maintenance, 01/03/24 4:03:00 EDT, [place], Partial fill upon patient request if the [...] 0 Refills,Maintenance, 08/05/23 14:50:00 EST, DIS Tablet, [facility] #[id number], Partial fill upon patient request if the [...] Exam Date Time Procedure Performing Provider Status 02/21/24 6:43 AM Chest 2 Views Frontal and Lat Israel Isaacs; Auth (Verified) Notes: (Chest 2 Views Frontal and Lat) Reason For Exam: Shortness of Breath RESULT: Chest 2 Views Frontal and Lat Chest 2 Views Frontal and Lat Hx of Present Illness: pt coming from a parking lot called [employer] stating SI with plan to hang or cut himself. on PD arrival pt had a crack pipe on hand which was removed. + ETOH, beer on scene. ambulatory.; Reason: Shortness of Breath; Clinical Question(s): Pneumonia COMPARISON: 01/30/2024. FINDINGS: LINES AND TUBES: None. LUNGS AND PLEURA: Again demonstrated are emphysematous changes with a large bullae in the upper to mid right lung field. Questionable small opacity in the right lung base. No pleural effusion. No pneumothorax. HEART, MEDIASTINUM AND FREIDA: Heart is normal in size. Normal mediastinal and hilar contour. BONES AND SOFT TISSUES: No acute abnormality. IMPRESSION: Questionable small opacity in the right lung base which may represent superimposed normal structures versus pathology. Clinical correlation and follow-up is recommended. WSN: [id number] Ordering Physician: Sage Patel Dictated By: Nnkea Petersen MD Dictated Date/Time: 02/21/24 6:48 am Reviewed By: Nneka Petersen MD Signed By: Nneka Petersen MD Signed Date/Time: 02/21/24 6:48 am Transcribed By: KENYETTA Transcribed Date/Time: 02/21/24 6:46 am Vital Signs Most recent to oldest [Reference Range]: 1 2 3 Oxygen Saturation [94-100 %] 98 % (02/22/24 10:32 AM) 100 % (02/21/24 9:23 PM) 100 % (02/21/24 4:47 PM) Pulse Rate [55-90 bpm] 68 bpm (02/22/24 10:32 AM) 58 bpm (02/21/24 9:23 PM) 67 bpm (02/21/24 4:47 PM) Blood Pressure [90-138/55-84 mm Hg] 114/78mm Hg (02/22/24 10:32 AM) 106/81mm Hg (02/21/24 9:23 PM) 102/77mm Hg (02/21/24 4:47 PM) Respiratory Rate [16-30 br/min] 16 br/min (02/22/24 10:32 AM) 16 br/min (02/21/24 9:23 PM) 16 br/min (02/21/24 4:47 PM) Temperature [96.8-100.4 DegF] 98.5 DegF (02/22/24 10:32 AM) 97.3 DegF (02/21/24 9:23 PM) 97.9 DegF (02/21/24 4:47 PM) Mode of Delivery (Oxygen) Room air (02/21/24 9:23 PM) Room air (02/21/24 4:47 PM) Room air (02/21/24 8:22 AM) Blood pressure sites Arm, left (02/22/24 10:32 AM) Arm, left (02/21/24 9:23 PM) Arm, right (02/21/24 4:47 PM) Temperature Route Oral (02/22/24 10:32 AM) Oral (02/21/24 9:23 PM) Oral (02/21/24 4:47 PM) Social History Social History Type Response Smoking Status Former smoker, quit more than 30 days ago entered on: 11/24/23 Sex Implantable Device List Procedure Provider Procedure Date Device Type Site Repair Hernia Inguinal Laparoscopic Amadeo PAINTING, Dillan 07/19/21 Unknown Pelvis Left Device Identifier Serial Number Lot or Batch Number Manufacturing Date Expiration Date Distinct Identification Code MRI Safety Implantable Status Assigning Authority [id number] Unknown [id number] Unknown 01/27/23 Unknown Unknown Active GS1 EKG study * Event Display: EKG Authored Date: * Event Display: ECG 12-Lead Authored Date: Please click on pdf link to open report * Event Display: ECG 12-Lead Authored Date: Ventricular Rate: 59 BPM Atrial Rate: 59 BPM P-R Interval: 152 ms QRS Duration: 88 ms Q-T Interval: 408 ms QTC Calculation(Bazett): 403 ms P Lincoln: 79 degrees R Lincoln: 74 degrees T Lincoln: 69 degrees Sinus bradycardia Moderate voltage criteria for LVH, may be normal variant ( Sokolow-Rey , Tigre product ) Borderline ECG When compared with ECG of 30-JAN-2024 08:22, No significant change was found Confirmed by MOHINI SONG MD ([id number]) on 02/21/2024 8:56:06 AM [place]: MOHINI SONG MD [facility] Progress note * Event Display: Progress Note Hospital Authored Date: Consult note * Prior Greg ZARAGOZA: PERFORM, MODIFY, MODIFY, MODIFY, MODIFY, MODIFY, MODIFY, MODIFY, MODIFY, MODIFY Event Display: Consultation Note Authored Date: Patient: ??GIANLUCA DAVIS ? Age:??43 Years?Sex:??Male?:??1980?? History of Present Illness Referring Physician:?Dr. Sue Tavares ?? Chief Complaint / Reason for consult:?psychotropic medication evaluation/management ?? Source of information:??Per patient, [facility] records ?? Identifying information:??GIANLUCA DAVIS??is a 43-year-old gentleman with past psychiatric history significant for major depressive disorder, posttraumatic stress disorder, suicidality, and multiple prior inpatient psychiatric hospitalizations for treatment of the same as well as medical history notable for COPD, pancreatitis, hypertension, esophagitis, gastritis, tobacco and cocaine use disorder, who initially presented to [facility] ED on 02/21/24 for evaluation of suicidal ideationwith a plan to hang or cut himself in the setting of chronic polysubstance (crack cocaine, alcohol)??use. ?? History of Present Illness: Patient is??known??to the [facility] psychiatry service??from prior encounter(s) (see??Brief ED Psychiatry Consultation Note; Verona Bassett DO 09/24/2023 13:53 EDT).?? ED provider??documented this current presentation as follows, as per note,??General Medical Problem*ED; Sage Robles 02/21/2024 02:10 EDT: CC:??Patient presents with Suicidal ideation. He reports he was recently dismissed from [facility]hab[facility] for unclear reasons. This occured approximately 2 weeks ago and subsequently reports ??he has been??drinking and smoking crack daily. He states he uses to cope with his depression and suicidal thoughts. Reports if he is left without help he plans to hang himself or cut himself as he does not want to be alive. Reports he is uncertain how much alcohol and crack he has been using daily sincebeing discharged from the rehab facility. Denies any history of Alcohol withdrawal seizures, ICU stays for [facility]. Denies any palpitations, anxiety headache, tremor, hallucinations, last drink approximately 10 pm. He has not been taking any of his psychiatric medications since he was discharged from facility...Denies any other symptoms including chest pain, shortness of breath, cough, abdominal pain, nausea vomiting, change in his bowel movements, rash fevers or chills. 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 Initial vital signs:??within normal limits Physical exam:??reassuring/unremarkable?? Available results of ED diagnostics were reviewed by this remote mortgage underwriter. Notable??positive findings below,noncontributory/nondiagnostic/nonspecific positives and pertinent negative cited marginally. Recent Labs SEROLOGY Hgb 13.1 Gm/dL (Low)?? 02/21/2024 02:10 Hct 39.7 % (Low)?? 02/21/2024 02:10 URINE TOXICOLOGY Cannabinoid Screen, Urine POSITIVE (Abnormal)?? 02/21/2024 11:58 Cocaine Metabolite Screen, Urine POSITIVE (Abnormal)?? 02/21/2024 11:58 Active/pending orders for diagnostics, referrals, and other protocols noted below. No other diagnostics were performed in the ED. Order Status Order Date/Time Psych Consult (Adult) Ordered 14:53 Psych Bed Search (ED Order) Ordered 09:51 CIWA - [place] Assessment Ordered 07:51 Seizure Precautions Ordered 07:51 Add On Lab Order Ordered 02:55 1:4 Observation Safety Monitoring (ED Only) Ordered 02:32 ?? Per note,??Crisis Initial Evaluation; Dion Estrada 02/21/2024 09:56 EDT: He is being seen today due to suicidal ideation with plan to hang himself and cut his throats. Hi is also, homicidal ideation with no specific plan as to toward??any person. The patient appears?? depressed, emotional; he is cooperative but as we went on with evaluation digging dipper, he started getting irritated and crying.??The patient has??a history of hypertension, PTSD, depression anxiety, cocaine use, and history suicidal ideation. The patient stated he has been feeling very depressed andsuicidal for the past 30 years, and having thoughts about wanting to kill himself. He has being running into traffic, and has been thinking about jumping off a bridge. Stated he has been using cocaine to help cope with these feelings; however, he then feels even worse when he is coming down from the high. He reported that he stopped taking his medication??for a while.? He reported that his sleep and appetite??have been poor, and he has a history of homelessness, and currently unemployed. ?? On??approach, patient is found sleeping in his E pod bed. He is briefly arousable, somnolent and oriented to person and place. He remains awake only long enough to corroborate foregoing account of precipitating events and to endorse ongoing depressed mood and persistent SI before??falling back asleep. Patient denies any additional symptoms concerning for anxiety, depression, nate, psychosis or PTSD. Patient currently denies any homicidal ideation. ? Past medical, psychiatric, and family history from patient is??unobtainable??due to??somnolennce??and is ascertained from aforementioned collateral sources, summarized below. ?? Current Psychotropic Medications:?? Aripiprazole 5 mg PO QHS Escitalopram 20 mg PO QD Gabapentin 800 mg PO BID Mirtazapine 15 mg PO QHS Topiramate 25 mg PO BID Outpatient Providers:??Denies having a psychaitric provider in the outpatient setting.? Past Psychiatric History:?Patient has a history of more than 10??psychiatric inpatient admissions, most recently at [facility] 01/03/24 for SI and crack cocaine use. [place] [facility] [place] SI and relapse on crack cocaine. IPLOC at [facility] on 10/24/2020 following IPLOC at??[facility] 10/18/2020 due to SI and crack cocaine abuse. IPLOC 01/2021 after??he endorsed??worsening SI at [facility] ([facility] substance use treatment facility). Reported history of??depression, PTSD.IPLOC at [facility] 02/2020 for mood disturbances, concerns of suicidal thoughts and??substance use disorder. IPLOC [facility] 01/2020 due to suicide attempt via walking into traffic. ?? Past Treatment Trials:??Prazosin, valproic acid, chlorpromazine 50 mg BID PRN, hydroxyzine 50 mg TID PRN, lithium??300 mg BID, escitalopram 10 mg daily, mirtazapine, gabapentin. ?? Substance Use Patient admits to addiction to crack cocaine x 30 years, last used prior to arrival at ED. Urine toxicology??positive for cannabis and cocaine. ?? Social History Living Situation -??currently homeless Friends/Family/Support -??was born and raised in [place], raised by both biological parents untilhis mother committed suicide when Gianluca was 17 year old, at which point, Gianluca and his 3 siblingswere placed into foster care. Gianluca never . He has a daughter who he has no contact??with. One of his sisters??is .?? Employment -??none - Denies Access to firearms or lethal weapons - Denies Legal -??history of prior arrest and incarceration at age 19 for robbing a??store, domestic violence, drug possession, and DUI ?? Family History:?? Patient's mother from completed suicide, father had alcohol use disorder, sister had substanceuse disorder. Review of Systems Pertinent positives as listed above in HPI.??Otherwise, remainder of review of systems negative. Mental Status Vitals & Measurements T:??97.7?F?? TMIN:??97.4?F?? TMAX:??97.7?F?? HR:??54??(Peripheral)?? RR:??16?? BP:??96/66?? SpO2:??97%?? Mental Status Exam (limited by somnolence) Appearance: Hospital attire, asleep Eye contact: Minimal Attitude: Withdrawn Motor Activity: Mostly asleep, still; absent of tics, tremors, psychomotor agitation, psychomotor slowing Mood: Depressed Affect: Congruent, restricted, somnolent Speech: Nonspontaneous, normal rate, low tone and??normal prosody Perception: No reported AVH;??no internal preoccupation or responding to internal stimuli Orientation: Intact to all spheres Memory: Uncertain Thought Process: Underproductive Thought Content: Absent overt delusions. Reliability: Limited historian Insight: Impaired Judgment: Impaired Impulse control: Limited Suicidality/Self-destructive Behavior: Ongoing SI. Homicidality/Violence: None ?? Musculoskeletal Antigravity. No rigidity noted. Moving all four extremities spontaneously. Not observed ambulating. Thayne Suicide Score Thayne Suicide Assessment Ca (02/21/24) Thayne Suicide Score Last Asked Ca (02/21/24) Suicidal Intent No Plan Last Asked-CSSRS: Yes (02/21/24) Suicidal Intent No Plan Past Month-CSSRS: No (02/21/24) Suicidal Thoughts Method Lst Asked-CSSRS: Yes (02/21/24) Suicidal Thoughts Method Past Mon-CSSRS: Yes (02/21/24) Suicidal Thoughts Past Month - CSSRS: Yes (02/21/24) Suicidal Thoughts Since Last Asked-CSSRS: Yes (02/21/24) Suicide Behavior Lifetime - CSSRS: Yes (02/21/24) Suicide Behavior Past 3 Months - CSSRS: No (02/21/24) Suicide Behavior Since Last Asked-CSSRS: No (02/21/24) Suicide Intent w/Plan Last Asked-CSSRS: No (02/21/24) Suicide Intent w/Plan Past Month - CSSRS: No (02/21/24) Wish to be Past Month - CSSRS: Yes (02/21/24) Assessment/Plan Assessment:?In brief, this is a 43-year-old gentleman with past psychiatric history significant for major depressive disorder, posttraumatic stress disorder, suicidality, and multiple prior inpatient psychiatric hospitalizations for treatment of the same as well as medical history notable for COPD, pancreatitis, hypertension, esophagitis, gastritis, tobacco and cocaine use disorder, who initially presented to [facility] ED on 02/21/24 for evaluation of suicidal ideation with a plan to hang or cut himself in the setting of chronic polysubstance (crack cocaine, alcohol)??use.??At this point in time, the patient has been medically cleared and referred to[facility] for evaluation and assistance with disposition,??albeit currently anticipating transfer to [facility] tomorrow 02/22/24, pickup at 12PM.??The emergency psychiatry service was consulted for assistance with medicationmanagement. There is concern for unspecified depressive illness as evident by??recurrent suicidal ideation in the setting of medication nonadhernece and ongoing, chronic use of crack cocaine and alcohol. Initial psychiatric evaluation, limited by??somnolence, was notable for psychomotor??slowing, somnolent affect, and persistent depressed mood with??persistent suicidal ideation.??Diagnostic clarification is deferred to the next/longitudinal level of care. In the interim, will reinitiate mood s tabilizing/antipsychotic and??soporific elements of patient's most recent psychotropic regime, holding others as noted below pending diagnostic clarifification. Explained to the patient the differential diagnoses, treatment options, risks of untreated illness, and risks/benefits of treatment. See below for??detailed??treatment recommendations. ?? Diagnoses Unspecified depressive disorder Suicidal ideation Crack cocaine use Alcohol use R/o MDD R/o substance (crack cocaine withdrawal)-induced depressive disorder R/o alcohol-induced depressive disorder ?? Recommendations: -Disposition as per Crisis Services, albeit currently anticipating transfer to [facility] tomorrow 02/22/24, pickup at 12PM. -Continue 1:4??Observation Safety Monitoring. Patient may NOT leave [place] without Crisis/Psychiatry clearance. -Restarted aripiprazole 5 mg PO QHS for mood stabilization and psychosis. -Restarted mirtazapine at 7.5 mg PO QHS for mood stabilization. Further optimization as indicated toward historical regimen 15 mg nightly. -Holding escitalopram, topiramate, and gabapentin pending diagnostics clarification. -PRN orders for [facility] ED or medical floor only, not currently anticipating need for continuation upondischarge/transfer: --Started hydroxyzine 50 mg PO Q6H PRN anxiety --Started trazodone 50 mg PO QHS PRN insomnia --Started chlorpromazine 100 mg PO/50 mg IM Q6H PRN agitation/psychosis, reserving IM for severe agitation with acute safety concern and refusal of PO. -The preference is for PO medications when more conservative measures (e.g. verbal redirection) areineffective, but if the patient refuses the oral medications and there is sufficient acute safety concern, can judiciously utilize IM equivalents for severe agitation.?? -Would note that these medications are only being utilized in the ER while the patient awaits finaldisposition. Long-term need for these medications will need to be assessed by the patient's future treating psychiatrist. -Seclusion or restraint may only be used as interventions of last resort in the management of severe agitation in patient. If they are used, seclusion and restraint episodes should be as short as possible, dignified, and as safe as possible for all involved. Patient preference should always be considered when feasible. -Follow-up baseline serology including but not limited to Albumin, Alk Phos, Bili direct, Bili total, Protein total, AST, ALT to rule out organic etiology of presenting symptoms and establish prescribing parameters. -ECG for baseline QT/QTc??given potentially??QT-prolonging polypharmacy. ?? Patient was counseled??in detail about the importance of sobriety and the interplay between usage of recreational and illicit substances and psychiatric symptoms. We explained to the patient that recreational and illicit substances would interfere with the efficacy of psychiatric medications and would keep the psychiatric medications from being able to show optimal therapeutic effect. We spoke atlength about how recreational and illicit substances are [...] as any usage of recreational and illicit substancesupon discharge would put the patient at chronic risk for recurrent psychiatric decompensation leading to chronic risk for impulsive behavior including but not limited to risk for suicide/self-harm/harm to others. Patient expressed a good understanding of this and showed motivation to stay away fromrecreational and illicit substances upon discharge and to work on addiction during individual psychotherapy sessions in the outpatient setting. ?? Please feel free to contact the Psychiatry consult service (page [phone]) with any questions or concerns.? Recommendations messaged via??T[employer] to Dr. Jose Farah ?? Greg Mendoza PA-C (he/him) Emergency Psychiatry Services Division of Consultation-Liaison Psychiatry Department of Psychiatry [facility]?? Medications Inpatient ARIPiprazole 5 mg oral tablet, 5 mg, By Mouth, Daily at bedtime chlorproMAZINE 50 mg oral tablet, 100 mg, By Mouth, 3 times a day, PRN ChlorproMAZINE Inj, 50 mg= 2 mL, Intramuscular, Once, PRN Folic Acid Tablet, 1 mg, By Mouth, Daily HydrOXYzine Pamoate Capsule, 50 mg, By Mouth, Every 6 hours, PRN LORazepam Tablet, 1 mg, By Mouth, Every hour, PRN LORazepam Tablet, 2 mg, By Mouth, Every hour, PRN LORazepam Tablet, 3 mg, By Mouth, Every hour, PRN LORazepam Tablet, 4 mg, By Mouth, Every hour, PRN mirtazapine 15 mg oral tablet, 7.5 mg, By Mouth, Daily at bedtime Multivit Therapeutic/Minerals Tablet, 1 tablet, By Mouth, Daily Naltrexone Oral Tablet, 50 mg, By Mouth, Daily pantoprazole 20 mg oral delayed release tablet, 20 mg, By Mouth, Daily Pyridoxine Tablet, 50 mg, By Mouth, Daily Thiamine Tablet, 100 mg, By Mouth, 2 times a day traZODone 50 mg oral tablet, 50 mg, By Mouth, Daily at bedtime, PRN Allergies Avocado??(full body rash) Haldol??(skin crawling) SEROquel??(disoriented and sleepy) penicillin??(childhood allergy-unknown) Lab Results Event Name?? Event Result?? Normal Range?? Date/Time?? WBC 7.3 k/mm3 4 k/mm3 - 11 k/mm3 02/21/24 02:10:00 RBC 4.54 m/mm3??Low 4.7 m/mm3 - 6.1 m/mm3 02/21/24 02:10:00 Hgb 13.1 Gm/dL??Low 13.7 Gm/dL - 17.1 Gm/dL 02/21/24 02:10:00 Hct 39.7 %??Low 40.5 % - 50 % 02/21/24 02:10:00 MCV 87.4 femtoliters 80 femtoliters - 94 femtoliters 02/21/24 02:10:00 MCH 28.9 pg 27 pg - 34 pg 02/21/24 02:10:00 MCHC 33 g/dL 33 g/dL - 37 g/dL 02/21/24 02:10:00 Platelet Count 188 k/mm3 150 k/mm3 - 460 k/mm3 02/21/24 02:10:00 RDW-SD 42.1 femtoliters ?? 02/21/24 02:10:00 MPV 10.7 femtoliters 9.4 femtoliters - 12.4 femtoliters 02/21/24 02:10:00 Nucleated RBC (Automated) 0 #/100 WBC'S ?? 02/21/24 02:10:00 Abs. NRBC 0 k/mm3 ?? 02/21/24 02:10:00 Abs. Neut 4.7 k/mm3 1.3 k/mm3 - 7 k/mm3 02/21/24 02:10:00 Abs. Lymph 1.9 k/mm3 0.8 k/mm3 - 3.1 k/mm3 02/21/24 02:10:00 Abs. [place] 0.5 k/mm3 0.4 k/mm3 - 1.3 k/mm3 02/21/24 02:10:00 Abs. Eo 0.2 k/mm3 0 k/mm3 - 0.4 k/mm3 02/21/24 02:10:00 Abs. Baso 0.1 k/mm3 0 k/mm3 - 0.1 k/mm3 02/21/24 02:10:00 Neut % 64.1 % 44 % - 76 % 02/21/24 02:10:00 Lymph % 26.4 % 15 % - 43 % 02/21/24 02:10:00 [place] % 6.2 % 4.5 % - 10.5 % 02/21/24 02:10:00 Eos % 2.2 % 0 % - 6 % 02/21/24 02:10:00 Baso % 0.8 % 0 % - 2 % 02/21/24 02:10:00 Imm Gran 0.3 % ?? 02/21/24 02:10:00 Abs. Imm Gran 0 k/mm3 ?? 02/21/24 02:10:00 Sodium 142 mmol/L 133 mmol/L - 145 mmol/L 02/21/24 02:10:00 Potassium 3.8 mmol/L 3.6 mmol/L - 5.2 mmol/L 02/21/24 02:10:00 Chloride 107 mmol/L 98 mmol/L - 107 mmol/L 02/21/24 02:10:00 Bicarbonate Level 24 mmol/L 22 mmol/L - 29 mmol/L 02/21/24 02:10:00 Anion Gap 11 4 ??- 17 02/21/24 02:10:00 Glucose Level 92 mg/dL 70 mg/dL - 99 mg/dL 02/21/24 02:10:00 BUN 14 mg/dL 6 mg/dL - 20 mg/dL 02/21/24 02:10:00 Creatinine-Blood 1.01 mg/dL 0.7 mg/dL - 1.2 mg/dL 02/21/24 02:10:00 Estimated GFR Creatinine 95 ML/MIN/1.73 M2 ?? 02/21/24 02:10:00 Calcium 9 mg/dL 8.6 mg/dL - 10.5 mg/dL 02/21/24 02:10:00 High Sensitivity Troponin (HSTnT) 8 ng/L ?? 02/21/24 04:12:00 High Sensitivity Troponin (HSTnT) 9 ng/L ?? 02/21/24 02:10:00 TSH 0.83 uIU/mL 0.4 uIU/mL - 4.2 uIU/mL 02/21/24 02:10:00 Ethanol, Serum or Plasma NONE DETECTED ?? 02/21/24 02:10:00 Barbiturate Screen, Urine NONE DETECTED ?? 02/21/24 11:58:00 Cannabinoid Screen, Urine POSITIVE Abnormal ?? 02/21/24 11:58:00 Cocaine Metabolite Screen, Urine POSITIVE Abnormal ?? 02/21/24 11:58:00 Benzodiazepine Screen, Urine NONE DETECTED ?? 02/21/24 11:58:00 Amphetamine Screen, Urine NONE DETECTED ?? 02/21/24 11:58:00 Opiate Screen, Urine NONE DETECTED ?? 02/21/24 11:58:00 COVID-19 by RT-PCR NEGATIVE ?? 02/21/24 05:05:00 ? Diagnostic Results [id number] Ventricular Rate: 59 ??BPM Atrial Rate: 59 ??BPM P-R Interval: 152 ??ms QRS Duration: 88 ??ms Q-T Interval: 408 ??ms QTC Calculation(Bazett): 403 ??ms P Lincoln: 79 ??degrees R Lincoln: 74 ??degrees T Lincoln: 69 ??degrees Sinus bradycardia Moderate voltage criteria for LVH, may be normal variant ( Sokolow-Rey , Tigre product ) Borderline ECG When compared with ECG of 30-JAN-2024 08:22, No significant change was found Confirmed by MOHINI SONG MD ([id number]) on 02/21/2024 8:56:06 AM [1] ?? (02/21/2024 06:43 EDT Chest 2 Views Frontal and Lat) Questionable small opacity in the right lung base which may represent superimposed normal structures versus pathology. Clinical correlation and follow-up is recommended. [2] [1]??12 Lead ECG; Mohini Song DO 02/21/2024 02:15 EDT [2]??Chest 2 Views Frontal and Lat; Nneka Peteresn MD 02/21/2024 06:43 EDT Patient Care team information Care Team Personnel Name: Zander Xavier MD Position: [facility] Outreach Member Role: PCP Address: Address: [address] [place] [id number]- Name: Paul Menon RN Position: [facility] RN Member Role: Primary Care Nurse Name: Maryanne Ny Position: [facility] RN Member Role: Primary Care Nurse Name: Melissa Pham RN Position: [facility] AMB Nurse Member Role: Primary Care Nurse Name: Su Lewis RN Position: [facility] RN Member Role: Primary Care Nurse Care Team Related Persons Name: TONY PATEL Address: [place] [address] Name: YULY HE Address: home [address] [place] [address] Name: PT REQUESTS, NO ONE
--- OUTSIDE RECORDS SUMMARY | 2024-03-17 21:26 | XMS_ITS | Continuity of Care Document ---
Author Organization [facility] ter Address [address] [place] [address]- Care Team Providers Care Smutter Name Role Phone Kimberly Lockhart MD, Zander Primary Care Phys ician [place]counter [facility] [place](s[place] 01/30/24 - 01/30/[address] [address]- Encounter Diagnosis Cocaine use(Final) - 01/30/24 Alcohol use(Final) - 01/30/24 Discharge Disposition: A-D/C Home Attending Physician: Su Arriaga MD Admitting Physician: Su Arriaga MD Referring Physician: Not on Staff, Referring [...] 11/25/23 4:46:00 EDT, Route to Pharmacy Electronically, [facility]/pharmacy #[id number], Partial fill upon patient request if the [...] AM, 0 Refills, Maintenance, 01/03/24 4:03:00 EDT, [place], Partial fill upon patient request if the [...] 0 Refills,Maintenance, 08/05/23 14:50:00 EST, DIS Tablet, [id number], Partial fill upon patient request if the [...] Exam Date Time Procedure Performing Provider Status 01/30/24 7:50 AM Chest 2 Views Frontal and Lat Dottie Schneider; Yury (Verified) Notes: (Chest 2 Views Frontal and Lat) Reason For Exam: Shortness of Breath, Fever;Other: RESULT: Chest 2 Views Frontal and Lat Examination: Chest performed on 01/30/24. History: Detox for ethanol and smoking. Shortness of breath. Findings: Frontal and lateral views of the chest are compared to a prior study dated 09/07/[address] dated 02/29/2020. The cardiac and mediastinal silhouettes are within normal limits. The lungs are hyperinflated. Bullous change in the apices is seen. The osseous and soft tissue structures are unremarkable. Impression: There is no acute cardiopulmonary disease. WSN: [id number] Ordering Physician: Elba Yang Dictated By: Beatriz Iqbal MD Dictated Date/Time: 01/30/24 7:55 am Reviewed By: Beatriz Iqbal MD Signed By: Beatriz Iqbal MD Signed Date/Time: 01/30/24 7:55 am Transcribed By: KENYETTA Transcribed Date/Time: 01/30/24 7:54 am Vital Signs Most recent to oldest [Reference Range]: 1 2 3 Height 198 cm (01/30/24 1:46 AM) 198 cm (01/30/24 1:42 AM) Weight 60.6 kg (01/30/24 1:46 AM) 60.6 kg (01/30/24 1:42 AM) Oxygen Saturation [94-100 %] 100 % (01/30/24 9:20 AM) 97 % (01/30/24 5:07 AM) 99 % (01/30/24 3:35 AM) Pulse Rate [55-90 bpm] 73 bpm (01/30/24 9:20 AM) 65 bpm (01/30/24 5:07 AM) 65 bpm (01/30/24 3:35 AM) Body Mass Index [18.5-24.99 kg/m2] 15.46 kg/m2 *L* (01/30/24 1:42 AM) Blood Pressure [90-138/55-84 mm Hg] 114/80mm Hg (01/30/24 9:20 AM) 98/71mm Hg (01/30/24 5:07 AM) 96/67mm Hg (01/30/24 3:35 AM) Respiratory Rate [16-30 br/min] 16 br/min (01/30/24 9:20 AM) 18 br/min (01/30/24 5:07 AM) 20 br/min (01/30/24 3:35 AM) Temperature [96.8-100.4 DegF] 98 DegF (01/30/24 3:35 AM) 98.0 DegF (01/30/24 1:42 AM) Mode of Delivery (Oxygen) Room air (01/30/24 9:20 AM) Room air (01/30/24 5:07 AM) Room air (01/30/24 3:35 AM) Blood pressure sites Arm, left (01/30/24 9:20 AM) Arm, left (01/30/24 5:07 AM) Arm, right (01/30/24 3:35 AM) Temperature Route Oral (01/30/24 3:35 AM) Oral (01/30/24 1:42 AM) Dry Weight 60.6 kg (01/30/24 1:46 AM) 60.6 kg (01/30/24 1:42 AM) Weight Obtained Via Standing scale (01/30/24 1:42 AM) Dry Weight Obtained Via Standing scale (01/30/24 1:42 AM) Social History Social History Type Response Smoking Status Former smoker, quit more than 30 days ago entered on: 11/24/23 Sex Implantable Device List Procedure Provider Procedure Date Device Type Site Repair Hernia Inguinal Laparoscopic Dillan Childs MD 07/19/21 Unknown Pelvis Left Device Identifier Serial Number Lot or Batch Number Manufacturing Date Expiration Date Distinct Identification Code MRI Safety Implantable Status Assigning Authority [id number] Unknown [id number] Unknown 01/27/23 Unknown Unknown Active GS1 Note * Dax Mcgee DO: PERFORM Event Display: Patient Education Leaflets Authored Date: [id number] Drug Abuse ?? [id number] Drug Abuse Use and abuse of drugs or medicines may lead to addiction or dependence. You may hear drug abuse oraddiction called substance use disorder (HARMONY). Examples of illegal drugs include amphetamines (alsoknown as speed or crank), methamphetamines (meth), cocaine, heroin, bath salts, and hallucinogens (such as MDMA, ecstasy, PCP, mescaline, and LSD). Xylazine is a sedative and pain reliever approved only for animals. It's not approved or safe for people. It's known by the street name tranq. Xylazine has been found in street drugs, especially heroin and fentanyl. It has been linked to overdoses and . Severe side effects from xylazine include slow heart beat and breathing, low blood pressure, skin sores, and coma. In some states, marijuana is an illegal drug. Medicines include prescription medicines, sedatives, and sleeping pills. Once addiction or dependence happens, you are at greater risk for the problems below. Social and personal problems ??? Craving for the drug and not being able to stop using even though you think you want to stop (psychological addiction) ??? Drug withdrawal symptoms if you stop takingthe drug (physical dependence) ??? Loss of friends and family ??? School or work problems ??? Arrest, conviction, and fpc sentence for possession of an illegal substance or for driving under the infl uence ?? Health problems ??? Stroke, heart attack, heart failure, and kidney failure ??? Accidental injuriesto yourself or others while you are under the influence of a drug (in a car or at home) ??? HIV infection. This is a much greater risk if you use IV drugs. ??? Skin infections ??? Other sexually transmitted infections (STIs), such as herpes, chlamydia, and gonorrhea ??? Severe and fatal infection of the heart valves if you use IV drugs ??? Hepatitis B or C ??? Dementia, mood disorders, persistenthallucinations (particularly with hallucinogens) ??? Dental problems from methamphetamine abuse ??? from overdose ?? Home care The following suggestions can help you care for yourself at home: ??? Admit you have a drug problem. Ask for help from your family and close friends. ??? Seek professional help. This could be one-on-one therapy or counseling. There are also outpatient, inpatient, and residential drug treatment programs. ??? Join a self-help group for drug abuse. ??? Stay away from friends who abuse drugs or temptyou to continue abusing drugs. ??? Eat a balanced diet and start a regular exercise program. ?? Follow-up care Follow up with your healthcare provider, or as advised. Contact 1 of the resources below for help: ??? Substance Abuse and Mental Health Services Administration (SAMHSA) at www.samhsa.gov/findtreatment ??? National [place] on Alcoholism and Drug Dependence at www.ncadd.org ??? Narcotics Anonymous at www.na.org ?? Call 911 Call 911 right away if any of these occur: ??? Seizure ??? Hard time breathing or slow, irregular breathing ??? Chest pain ??? Sudden weakness on 1 side of your body or sudden trouble speaking ??? Very drowsy or trouble waking up ??? Fainting or loss of consciousness ??? Fast heart rate ??? Very slow heart rate ?? When to get medical care Call your healthcare provider if any of these occur: ??? Agitation, anxiety, or unable to sleep ???Unintended weight loss. This means more than 10 to 15 pounds over 3 months. ??? Fever of 100.4??F (38??C) or higher, or as advised by your provider ??? Shortness of breath ??? Cough with colored sputum ??? Redness, swelling, or tenderness at an injection site ??? You think counseling or drug rehabilitation services are needed to prevent additional drug use ?? Last Reviewed Date: 2022 ?? 0203-5243 The [employer]. All rights reserved. This information is not intended as a substitute for professional medical care. Always follow your healthcare professional's instructions. ?? Patient Care team information Care Team Personnel Name: Zander Xavier MD Position: [facility] Outreach Member Role: PCP Address: Address: [address] [place] [address]- Name: Paul Menon RN Position: [facility] RN Member Role: Primary Care Nurse Name: Maryanne Ny Position: [facility] RN Member Role: Primary Care Nurse Name: Melissa Pham RN Position: [facility] REYES Nurse Member Role: Primary Care Nurse Name: Su Lewis RN Position: [facility] RN Member Role: Primary Care Nurse Care Team Related Persons Name: TONY PATEL Address: [place] [address] Name: YULY HE Address: home [address] [place] [address] Name: PT REQUESTS, NO ONE
--- OUTSIDE RECORDS SUMMARY | 2024-03-17 21:26 | XMS_ITS | Continuity of Care Document ---
Author Organization [facility] ter Address [address] [place] [address]- Care Team Providers Care Portable Machine Cutter Name Role Phone Not on Staff, PCP Primary Care Physician Unavail able [place] [facility] [place] - 03/11/[address] [address]- Encounter Diagnosis Polysubstance use disorder(Final) - 03/11/24 Alcohol use(Final) - 03/11/24 Cocaine use(Final) - 03/11/24 Discharge Disposition: A-D/C Home Attending Physician: Lai PAINTING, Hiral Eisenberg Admitting Physician: Hiral Hoyt MD Referring Physician: Not on Staff, Referring [...] 11/25/23 4:46:00 EDT, Route to Pharmacy Electronically, [facility]/pharmacy #[id number], Partial fill upon patient request if the [...] AM, 0 Refills, Maintenance, 01/03/24 4:03:00 EDT, [place], Partial fill upon patient request if the [...] 0 Refills,Maintenance, 08/05/23 14:50:00 EST, DIS Tablet, [facility] #[id number], Partial fill upon patient request if the [...] to oldest [Reference Range]: 1 2 Height 198 cm (03/11/24 12:58 AM) Weight 63 kg (03/11/24 12:58 AM) Oxygen Saturation [94-100 %] 99 % (03/11/24 6:09 AM) 99 % (03/11/24 12:58 AM) Pulse Rate [55-90 bpm] 59 bpm (03/11/24 6:09 AM) 76 bpm (03/11/24 12:58 AM) Body Mass Index [18.5-24.99 kg/m2] 16.07 kg/m2 *L* (03/11/24 12:58 AM) Blood Pressure [90-138/55-84 mm Hg] 104/ 63mm Hg (03/11/24 6:09 AM) 123/81mm Hg (03/11/24 12:58 AM) Respiratory Rate [16-30 br/min] 16 br/mi n (03/11/24 6:09 AM) 18 br/min (03/11/24 12:58 AM) Temperature [96.8-100.4 DegF] 98.3 DegF (03/11/24 12:58 AM) Mode of Delivery (Oxygen) Room air (03/11/24 6:09 AM) Room air (03/11/24 12:58 AM) Blood pressure sites Arm, left (03/11/24 12:58 AM) Temperature Route Oral (03/11/24 12:58 AM) Weight Obtained Via Patient/family state d (03/11/24 12:58 AM) Social History Social History Type Response Smoking Status Former smoker, quit more than 30 days ago entered on: 11/24/23 Sex Implantable Device List Procedure Provider Procedure Date Device Type Site Repair Hernia Inguinal Laparoscopic Dillan Childs MD 07/19/21 Unknown Pelvis Left Device Identifier Serial Number Lot or Batch Number Manufacturing Date Expiration Date Distinct Identification Code MRI Safety Implantable Status Assigning Authority [id number] Unknown [id number] Unknown 01/27/23 Unknown Unknown Active GS1 Patient Care team information Care Team Personnel Name: Paul Menon RN Position: [facility] RN Member Role: Primary Care Nurse Name: Maryanne Ny Position: [facility] RN Member Role: Primary Care Nurse Name: Melissa Pham RN Position: [facility] REYES Nurse Member Role: Primary Care Nurse Name: Su Lewis RN Position: [facility] RN Member Role: Primary Care Nurse Name: Not on Staff, PCP Position: [facility] Physician (General Medicine) Member Role: PCP Care Team Related Persons Name: TONY PATEL Address: [place] [address] Name: YULY HE Address: [address] [place] [address] Name: PT REQUESTS, NO ONE
--- OUTSIDE RECORDS SUMMARY | 2024-03-17 21:26 | XMS_ITS | Continuity of Care Document ---
Author Organization [facility] ter Address [address] [place] [address]- Care Team Providers Care Assistant Sales Manager Name Role Phone Kimberly Lockhart MD, Zander Primary Care Phys ician [place] [facility] [place] 03/04/24 - 03/05/24 [facility] [address] [place] [address]- Discharge Disposition: A-D/C Walkout Attending Physician: Not [...] 11/25/23 4:46:00 EDT, Route to Pharmacy Electronically, [facility]/pharmacy #[id number], Partial fill upon patient request if the [...] AM, 0 Refills, Maintenance, 01/03/24 4:03:00 EDT, [place], Partial fill upon patient request if the [...] 0 Refills,Maintenance, 08/05/23 14:50:00 EST, DIS Tablet, [place] #[id number], Partial fill upon patient request if the [...] to oldest [Reference Range]: 1 2 Height 197 cm (03/05/24 2:07 AM) 197 cm (03/04/24 10:32 PM) Weight 66 kg (03/05/24 2:07 AM) 66 kg (03/04/24 10:32 PM) Oxygen Saturation [94-100 %] 100 % (03/05/24 2:07 AM) 100 % (03/04/24 10:32 PM) Pulse Rate [55-90 bpm] 81 bpm (03/05/24 2:07 AM) 80 bpm (03/04/24 10:32 PM) Body Mass Index [18.5-24.99 kg/m2] 17.01 kg/m2 *L* (03/05/24 2:07 AM) 17.01 kg/m2 *L* (03/04/24 10:32 PM) Blood Pressure [90-138/55-84 mm Hg] 132/ 87mm Hg (03/05/24 2:07 AM) 118/77mm Hg (03/04/24 10:32 PM) Respiratory Rate [16-30 br/min] 16 br/mi n (03/04/24 10:32 PM) Temperature [96.8-100.4 DegF] 98.3 DegF (03/05/24 2:07 AM) 98.9 DegF (03/04/24 10:32 PM) Mode of Delivery (Oxygen) Room air (03/05/24 2:07 AM) Room air (03/04/24 10:32 PM) Blood pressure sites Arm, left (03/05/24 2:07 AM) Arm, left (03/04/24 10:32 PM) Temperature Route Oral (03/05/24 2:07 AM) Oral (03/04/24 10:32 PM) Social History Social History Type Response Smoking Status Former smoker, quit more than 30 days ago entered on: 11/24/23 Sex Implantable Device List Procedure Provider Procedure Date Device Type Site Repair Hernia Inguinal Laparoscopic Dillan Childs MD 07/19/21 Unknown Pelvis Left Device Identifier Serial Number Lot or Batch Number Manufacturing Date Expiration Date Distinct Identification Code MRI Safety Implantable Status Assigning Authority [id number] Unknown [id number] Unknown 8/28/23 Unknown Unknown Active GS1 EKG study * Event Display: EKG Authored Date: * Event Display: ECG 12-Lead Authored Date: Please click on pdf link to open report * Event Display: ECG 12-Lead Authored Date: Ventricular Rate: 86 BPM Atrial Rate: 86 BPM P-R Interval: 140 ms QRS Duration: 86 ms Q-T Interval: 350 ms QTC Calculation(Bazett): 418 ms P [place]: 81 degrees R [place]: 74 degrees T [place]: 64 degrees Normal sinus rhythm Normal ECG When compared with ECG of 21-FEB-2024 02:15, No significant change was found Confirmed by MICHELLE GARZA MD ([id number]) on 03/05/2024 12:19:45 PM [place]: MICHELLE GARZA MD Patient Care team information Care Team Personnel Name: Zander Xavier MD Position: [facility] Outreach Member Role: PCP Address: Address: [address] [place] [address] Name: Paul Menon RN Position: [facility] RN Member Role: Primary Care Nurse Name: Maryanne Ny Position: S RN Member Role: Primary Care Nurse Name: Melissa Pham RN Position: [facility] AMB Nurse Member Role: Primary Care Nurse Name: Su Lewis RN Position: [facility] RN Member Role: Primary Care Nurse Care Team Related Persons Name: TONY PATEL Address: [place] [address] Name: YULY HE Address: home [address] [place] [address] Name: PT REQUESTS, NO ONE
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
[2024-03-17 22:15] VITALS: BP 111/72; PULSE 44; RESP 14; TEMP 36.4; O2SAT 100
[2024-03-17 22:25] VITALS: PULSE 44
--- NOTE | 2024-03-17 22:28 | PC.NURSE ---
pt presents to the ED a&ox4. vss and up to date aside from being sinus jay. pt presents requesting for medical clearance from cocaine. pt states he is a chronic longstanding user of cocaine via inhalation. denies hx of IVDU. pt reports spending/using approx. $200 worth of cocaine per day. denies any other drug use aside from marijuana. pt reports increased drinking lately as he is attempting to quit cocaine on his own. states the program will not allow him in if he is not clean from cocaine so he's been drinking whatever he can in replacement. pt seemingly agitated when presenting to ED4. hesitant to be changed over but agreeable after multiple attempts. pt denies SI/HI but changed into ligature free attire per protocol. belongings placed in space between ED/pod. urine obtained/sent to lab. no sob/wob noted. respirations even/unlabored. plan of care ongoing. call quezada placed within reach.
[2024-03-17 22:41] LABS: Appearance Urine Clear; Color Urine Yellow; Glucose Urine UA Negative (Negative); Leukocyte Esterase Urine Negative (Negative); Nitrite Urine Negative (Negative); PH 7.5 (5.0-9.0); Specific Gravity - Urine 1.015 (1.005-1.025); Urine Blood Negative (Negative); Urine Ketones Negative (Negative); Urine Protein Negative (Neg-Trace)
[2024-03-17 22:44] LABS: Amphetamine Screen Urine Not Detected (Not Detect); Barbiturates, Urine POSITIVE (Not Detect); Benzodiazepines Screen Urine Not Detected (Not Detect); Cocaine Screen Urine POSITIVE (Not Detect); Opiate Screen Urine Not Detected (Not Detect); Phencyclidine Screen Urine Not Detected (Not Detect)
[2024-03-17 22:45] LABS: Bacteria Urine None Seen (None Seen); Buprenorphine Scr Not Detected (Not Detect); Cannabinoid Screen Urine POSITIVE (Not Detect); Fentanyl, urine Not Detected (Not Detect); Hyaline Casts Urine 0-2 /LPF (0-2); Methadone Screen, Urine Not Detected (Not Detect); Oxycodone Screen Urine Not Detected (Not Detect); RBC Urine 0-2 /HPF (0-2); Squamous Epithelial Cell Urine 0-2 /HPF (0-2); WBC Urine 0-5 /HPF (0-5)
--- NOTE | 2024-03-17 23:21 | PC.NURSE ---
Called Radha home health clinical supervisor at [place] [facility] to let her know pt is medically cleared and will be returning to the facility.
[2024-03-17 23:38] VITALS: BP 115/77; PULSE 54; RESP 16; TEMP 36.7; O2SAT 100
== END 2024-03-17 23:39 | disposition home or self-care (01) ==
PROVIDERS: Physician Assistant Medical; Emergency Provider Emergency Medicine
DX: Z02.2 Encounter for examination for admission to residential institution (principal); F14.10 Cocaine abuse, uncomplicated; R00.1 Bradycardia, unspecified; F32.9 Major depressive disorder, single episode, unspecified; F43.10 Post-traumatic stress disorder, unspecified; F17.210 Nicotine dependence, cigarettes, uncomplicated; Z79.899 Other long term (current) drug therapy
CPT/HCPCS: 36415; 80053; 80143; 80179; 80307; 81001; 83690; 83735; 85025; 99284